=== PATIENT | male | born 1945 ===

== ENCOUNTER 2019-08-14 13:53 | Inpatient (IN) | payer MEDICARE, BC ==
[2019-08-14] MEDS ORDERED: CCU Electrolyte Replacement 1 EACH FS ONE (15:09)
[2019-08-14] MEDS ORDERED: Ventilator Sedation Protocol 1 EACH FS ONE (15:09)
[2019-08-14] MEDS ORDERED: Vecuronium 10 MG VIAL IVP PRN (15:10)
[2019-08-14] MEDS ORDERED: niCARdipine 40MG In NaCl 40 MG/200 ML BAG IVPB SCH (15:15)
[2019-08-14 15:36] LABS: Actual Bicarbonate (HCO3a) 21.3 mEq/L (22-28); Base Excess (BEa) -3.5 mEq/L (-2.0 to +3.0); CO2 Tension 38.2 mmHg (35.0-45.0); Calcium, Ionized 1.16 mmol/L (1.12-1.30); Carboxyhemoglobin (COHb) 0.6 gm% (0.0-3.0); Hemoglobin (Hb) 16.6 g/dL (14.0-18.0); Potassium - ABG Lab 5.14 mmol/L (3.70-5.30); pH, Arterial 7.37 (7.35-7.45)
[2019-08-14] MEDS ORDERED: Potassium Chloride 20 MEQ TAB PO PRN (16:21)
[2019-08-14] MEDS ORDERED: Propofol BOLUS 1,000 MG/100 ML VIAL IV PRN (16:21)
[2019-08-14] MEDS ORDERED: Potassium Phosphate 12 MMOL in Sodium Chloride 0.9% 250 ML 250 ML IV PRN (16:21)
[2019-08-14] MEDS ORDERED: CCU ELECTROLYTE REPLACEMENT PROTOCOL FS PRN (16:21)
[2019-08-14] MEDS ORDERED: fentaNYL Citrate/PF 2,000 MCG in Sodium Chloride 0.9% 60 ML IV SCH (16:21)
[2019-08-14] MEDS ORDERED: Morphine 2 MG/ML SYRINGE SLOW IVP PRN (16:21)
[2019-08-14] MEDS ORDERED: Magnesium Oxide 400 MG TAB PO PRN ×2 (16:21)
[2019-08-14] MEDS ORDERED: Potassium Chloride 40 MEQ in Sodium Chloride 0.9% 250 ML 250 ML IVPB PRN (16:21)
[2019-08-14] MEDS ORDERED: Magnesium 2 GM/50 ML 2 GM in Premix Bag 1 BAG IVPB PRN (16:21)
[2019-08-14] MEDS ORDERED: Fentanyl BOLUS 250 ML IVPB PRN (16:21)
[2019-08-14] MEDS ORDERED: Potassium Phosphate 15 MMOL in Sodium Chloride 0.9% 250 ML 250 ML IV PRN (16:21)
[2019-08-14] MEDS ORDERED: Potassium Phosphate 9 MMOL in Sodium Chloride 0.9% 100 ML IVPB PRN (16:21)
[2019-08-14] MEDS ORDERED: PHOS-NAK 1 PKT PACK PO PRN ×2 (16:21)
[2019-08-14] MEDS ORDERED: DISCONTINUE PREVIOUS NARCOTIC PAIN MEDICATIONS AND BENZODIAZEPINES FS SCH (16:21)
--- NOTE | 2019-08-14 16:31 | CON ---
DATE OF CONSULTATION: 08/14/2019 REASON FOR CONSULTATION: The patient is intubated. HISTORY OF PRESENT ILLNESS: This is a 74-year-old male, who presented to the [facility] at [place] yesterday with elevated blood pressure and difficulty speaking. He had a negative CT. He was found to have some narrowing of his right internal carotid artery, but no significant stenosis. He was started on a nicardipine drip secondary to hypertension. He was not considered a tPA candidate secondary to his elevated blood pressure. Today, he had altered mental status. It is presumed that he was having alcohol withdrawal. He became so combative that he had to be intubated. After intubation, a COVID-19 test was drawn because of the altered mental status, that was drawn over at [place] and will need to be followed up through that facility. PAST MEDICAL HISTORY: 1. Hypertension. 2. Hyperlipidemia. 3. Coronary artery disease, requiring 2 stents. 4. Gastroesophageal reflux. 5. Gout. 6. Mild COPD. PAST SURGICAL HISTORY: Coronary stent placement. FAMILY MEDICAL HISTORY: Unremarkable. SOCIAL HISTORY: Quit smoking in 2002. Drinks about half a bottle of wine every day. Does not use illicit drugs. ALLERGIES: OXYCODONE AND SULFA DRUGS. MEDICATIONS: Prior to admission; 1. Aspirin 81 mg daily. 2. Lipitor 40 mg nightly. 3. Candesartan 32 mg daily. 4. Isosorbide mononitrate 60 mg b.i.d. 5. Metoprolol 50 mg daily. REVIEW OF SYSTEMS: Cannot be obtained because the patient is currently intubated. PHYSICAL EXAMINATION: VITAL SIGNS: Heart rate 58, blood pressure 131/86, O2 saturation 96% on 40% oxygen, and respiratory rate 18. Last recorded temperature 98.0. GENERAL: He is a well-developed, well-nourished, elderly male. He was intubated and in no acute distress. HEENT: Pupils are 3 mm and reactive. Sclerae are anicteric. Oropharynx has endotracheal tube in place. NECK: No adenopathy or JVD. LUNGS: Clear without wheezing or rhonchi. CARDIOVASCULAR: Slightly bradycardic without audible murmur. NECK: He has an old tracheostomy scar noted. ABDOMEN: Soft and nontender. No hepatosplenomegaly. EXTREMITIES: No clubbing, cyanosis, or edema. LABORATORY DATA: His labs from here are pending. Last night, his sodium was 130, potassium 3.9, chloride 102, CO2 of 27, BUN 22, creatinine 1.7, and albumin 3.8. White blood cell count 11.3, hemoglobin 7.2, and platelet count 232. An ABG here is pending. I saw an x-ray from the [facility], which showed endotracheal tube is in good position. He had no acute mass, effusion, or infiltrate. ASSESSMENT: 1. Hypertension with emergency. 2. Possible alcohol withdrawal. 3. Acute respiratory failure, requiring mechanical ventilation. 4. Alcohol abuse. 5. History of coronary artery disease. 6. History of previous tracheostomy placement. 7. Transient ischemic attack at the time of admission. PLAN: The patient has been intubated. He will be kept on sedation. We will attempt not to lower his blood pressure too much. He can have nicardipine as needed. If his blood pressure remains elevated systolic greater than 170. We will await the results of the rule out COVID test. I do not see any need for extensive antibiotic coverage. Adjust ventilator if needed for ABG. Job ID: [id number]
[2019-08-14] MEDS ORDERED: Bisacodyl 10 MG SUPP PR PRN (17:01)
[2019-08-14] MEDS ORDERED: Acetaminophen 325 MG TAB PO PRN (17:01)
[2019-08-14] MEDS ORDERED: Ondansetron PF 4 MG/2 ML Vial IVP PRN (17:01)
[2019-08-14] MEDS ORDERED: Acetaminophen 650 MG Suppository PR PRN (17:01)
[2019-08-14 17:27] LABS: Puncture Site RRA
[2019-08-14] MEDS: Multivitamins, Adult 10 ML, Folic Acid 1 MG, Thiamine HCl 100 MG in Dextrose 5 %-0.45 %... IV SCH (17:42)
[2019-08-14] MEDS: Lorazepam 2 MG/ML VIAL SLOW IVP PRN ×2 (17:48→22:12)
--- NOTE | 2019-08-14 18:31 | HP ---
REASON FOR ADMISSION: Acute respiratory failure, alcohol abuse, delirium. HISTORY OF PRESENTING ILLNESS: Please note, majority of this history is obtained by [facility] and records from [facility]. The patient presented there yesterday for confusion and agitation. His initial blood pressures were elevated and the patient was placed on Cardene drip and admitted to ICU there. His initial blood pressures were 223/103. Stroke alert was also called in the ER, where a CT brain done showed no acute infarct. The patient subsequently underwent CT angio of the brain and neck, which showed 50% narrowing in the proximal right carotids. 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 The patient was given Ativan and later was started on Precedex drip, despite which he became very agitated and violent. He was subsequently intubated and transferred here for higher level of care. The patient apparently drinks half a bottle of wine every day. PAST MEDICAL AND SURGICAL HISTORY: Per prior records, the patient has history of hypertension, dyslipidemia, coronary artery disease with prior two stents. Last stent was in 2018. GERD. Gout. COPD. ALLERGIES: ALLERGIC TO OXYCODONE AND SULFA. PERSONAL HISTORY: Quit smoking in 2002. Drinks half a bottle of wine every day. Does not abuse drugs. FAMILY HISTORY: Cannot be obtained as the patient is on the ventilator and sedated. HOME MEDICATIONS: 1. Aspirin 81 mg daily. 2. Lipitor 40 mg p.o. at bedtime. 3. Candesartan 32 mg daily. 4. Imdur 60 mg twice daily. 5. Metoprolol succinate 50 mg daily. CODE STATUS: Presumed to be full, as the patient is currently not oriented as he is on the ventilator. REVIEW OF SYSTEMS: Cannot be obtained as the patient is intubated and sedated. PHYSICAL EXAMINATION: GENERAL: The patient is a 74-year-old male, who is currently on the ventilator and is not in any distress. VITAL SIGNS: Blood pressure 126/66, pulse is 56 per minute, respiratory rate 14 per minute, saturating 95% on 40% FiO2 on the ventilator. NECK: Supple. No elevated JVD. HEENT: Eyes; extraocular muscles intact. Pupils reacting to light. Oral cavity, mucous membranes are dry. No exudates or congestion. CARDIOVASCULAR: S1, S2 heard, regular rhythm. RESPIRATORY: Air entry 1+ bilateral. Scattered rhonchi plus no rales or wheezes. ABDOMEN: Soft. Bowel sounds heard. No tenderness, rigidity, or guarding. EXTREMITIES: No peripheral edema or calf tenderness. VASCULAR: Peripheral pulses 1+ bilateral. No ischemic ulcerations or gangrene. CENTRAL NERVOUS SYSTEM: No gross focal deficits noted. Further neurologic exam is limited as the patient is sedated and is on the ventilator. PSYCHIATRIC: Cannot be examined, as the patient is on the ventilator and sedated. LABORATORY DATA: Blood gas done here shows a pH of 7.37, pCO2 38, PO2 86, bicarb on the blood gas is 21. Electrolytes on the blood gas appear to be stable with sodium of 137, potassium 5.1, chloride 103. Further blood work done at [facility] shows albumin of 3.8. AST and ALT 20 and 37, alkaline phosphatase 86. White count of 11, H and H 17 and 49, platelet count 232, MCV is 88. BUN 22, creatinine 1.7, serum bicarb 27. Troponin x1 negative. CARDIOVASCULAR STUDIES: EKG showed normal sinus rhythm at 65 beats per minute. There is underlying chronic LBBB. QRS duration is 160 milliseconds, corrected QT 488 milliseconds. IMAGING STUDIES: CT brain done at [facility] shows no acute infarct or bleed. There are chronic left maxillary sinusitis changes with moderate cerebral atrophy. CT angio neck and brain done at [facility] yesterday showed 50% proximal right ICA stenosis. CLINICAL IMPRESSION AND PLAN: The patient will be admitted to ICU for acute respiratory failure secondary to alcohol abuse, delirium and severe agitation requiring multiple medications. He was evaluated by Dr. Duggan already here in the ICU. He will be on banana bag. Gentle hydration with normal saline. We will continue his DuoNeb, aspirin, Lipitor, and hold off on candesartan and indomethacin in view of acute kidney injury, which showed up on his labs yesterday. Based on changing vital signs, further antihypertensives will be added, if needed. We will continue to closely monitor him for further DTs and agitation in ICU. Job ID: [id number] [facility]
[2019-08-14] MEDS: Propofol 1,000 MG/100 ML VIAL IV PRN ×2 (18:36→21:31)
[2019-08-14] MEDS ORDERED: niCARdipine 25 MG in Sodium Chloride 0.9% 250 ML 240 ML IVPB SCH (18:45)
[2019-08-14] MEDS ORDERED: niCARdipine 50 MG in Sodium Chloride 0.9% 250 ML 230 ML IVPB SCH (18:45)
[2019-08-14] MEDS: Sodium Chloride 0.9% 1,000 ML IV SCH (19:54)
[2019-08-14] MEDS: Icosapent Ethyl 1 GM CAPSULE PO SCH (20:12)
[2019-08-14] MEDS: Aspirin 81 mg Enteric Coated Tablet PO SCH (20:12)
[2019-08-14] MEDS: Atorvastatin Calcium 40 MG TAB PO SCH (20:12)
[2019-08-14] MEDS: hydrALAZINE 20 MG/ML VIAL SLOW IVP PRN (21:32)
[2019-08-15] MEDS: Propofol 1,000 MG/100 ML VIAL IV PRN ×6 (00:09→19:57)
[2019-08-15 03:57] LABS: #Eosinphils 0.3 thou/uL (0.0-0.7); #Lymphocytes 2.2 thou/uL (1.20-3.40); #Monocytes 1.6 thou/uL (0.11-0.59); #Neutrophils 10.6 thou/uL (1.40-6.50); %Basophils 0.2 % (0.0-1.0); %Eosinophils 2.2 % (0.0-10.0); %Lymphocytes 14.8 % (21.0-51.0); %Monocytes 10.9 % (0.0-10.0); %Neutrophils 71.8 % (42.0-75.0); Hemoglobin 15.4 g/dL (14.0-18.0); Mean Corpuscular HGB CONC 33.5 g/dL (32.0-36.0); Mean Corpuscular Hemoglobin 31.6 pg (27.0-31.0); Mean Corpuscular Volume 94.3 fL (78.0-98.0); Mean Platelet Volume 8.5 fL (7.4-10.4); Platelet Count 195 thou/uL (130-400); RBC Distribution Width 12.6 % (11.5-14.5); Red Blood Cell (RBC) Count 4.88 mill/uL (4.70-6.10); White Blood Cell (WBC) Count 14.7 thou/uL (4.8-10.8)
[2019-08-15] MEDS: Sodium Chloride 0.9% 1,000 ML IV SCH ×3 (03:57→20:02)
[2019-08-15 04:20] LABS: ALT (SGPT) 18 U/L (8-55); AST (SGOT) 19 U/L (5-34); Albumin 3.5 g/dL (3.4-4.8); Alkaline Phosphatase 57 U/L (40-110); Anion Gap 14 mmol/L (10-20); BUN (Urea Nitrogen) 20 mg/dL (8.4-25.7); Calc. Creatinine Clearance 70 mL/min (70-130); Calcium 8.2 mg/dL (7.8-10.44); Carbon Dioxide 22 mmol/L (23-31); Chloride 103 mmol/L (98-107); Estimated GFR-MDRD 51; Globulin 2.8 g/dL (2.4-3.5); Glucose 168 mg/dL (83-110); Magnesium 1.8 mg/dL (1.6-2.6); Phosphorus 3.2 mg/dL (2.3-4.7); Potassium 3.6 mmol/L (3.5-5.1); Protein, Total 6.3 g/dL (5.8-8.1); Sodium 135 mmol/L (136-145)
[2019-08-15 06:55] LABS: Actual Bicarbonate (HCO3a) 22.9 mEq/L (22-28); Base Excess (BEa) -1.6 mEq/L (-2.0 to +3.0); CO2 Tension 38.6 mmHg (35.0-45.0); Calcium, Ionized 1.16 mmol/L (1.12-1.30); Carboxyhemoglobin (COHb) 1.2 gm% (0.0-3.0); Hemoglobin (Hb) 16.1 g/dL (14.0-18.0); O2 Tension (PaO2), arterial 73.4 mmHg (> 70.0); Potassium - ABG Lab 3.55 mmol/L (3.70-5.30); pH, Arterial 7.39 (7.35-7.45)
[2019-08-15 07:15] LABS: Puncture Site RRAD
[2019-08-15] MEDS: Pantoprazole 40 MG VIAL IVP SCH (07:26)
[2019-08-15] MEDS: Enoxaparin Sodium 40 MG/0.4 ML SYRINGE SC SCH (07:26)
[2019-08-15] MEDS: hydrALAZINE 20 MG/ML VIAL SLOW IVP PRN (07:27)
[2019-08-15] MEDS: Icosapent Ethyl 1 GM CAPSULE PO SCH ×2 (07:30→20:00)
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
--- NOTE | 2019-08-15 08:20 | RAD ---
CHEST 1 VIEW: HISTORY: Pneumonia. COMPARISON: None. FINDINGS: Endotracheal tube tip is below the clavicles. Enteric tube tip below the diaphragm out of field of v iew. Large left effusion. Trace right effusion. Also left basilar opacity. IMPRESSION: 1. Large left layering effusion. Underlying pneumonia or mass cannot be excluded. 2. Satisfactory location of the endotracheal and enteric tubes. POS: HOME
[2019-08-15] MEDS: Metoprolol Tartrate 50 MG TAB PER TUBE SCH ×2 (08:57→20:00)
[2019-08-15] MEDS: Lorazepam 2 MG/ML VIAL SLOW IVP PRN (08:57)
[2019-08-15] MEDS: Isosorbide Mononitrate 20 MG TAB PER TUBE SCH ×2 (08:58→20:00)
[2019-08-15] MEDS ORDERED: Isosorbide Mononitrate (ER) 30 MG TAB PO SCH (09:00)
[2019-08-15] MEDS: Multivitamins, Adult 10 ML, Folic Acid 1 MG, Thiamine HCl 100 MG in Dextrose 5 %-0.45 %... IV SCH (12:33)
--- NOTE | 2019-08-15 16:00 | PDOC.HOSPP ---
- Subjective Encounter Date: 08/15/19 Encounter Time: 09:00 Subjective: on vent, not in distress - Objective Vital Signs & Weight: Vital Signs (12 hours) Temp Pulse Resp BP Pulse Ox 08/15/19 14:26 57 L 08/15/19 14:00 19 08/15/19 12:00 14 08/15/19 11:00 98.6 F 08/15/19 10:32 56 L 08/15/19 10:00 15 08/15/19 08:00 21 H 100 08/15/19 07:27 56 L 183/72 H 08/15/19 07:16 56 L 08/15/19 07:00 97.2 F L 08/15/19 06:00 14 08/15/19 04:00 14 Weight Admit Weight 229 lb Weight 229 lb 4.492 oz Most Recent Monitor Data Heart Rate from ECG 58 NIBP 161/65 NIBP BP-Mean 97 Respiration from ECG 15 SpO2 100 I&O: 08/14/19 08/15/19 08/16/19 06:59 06:59 06:59 Intake Total 1553 120 Output Total 1313 810 Balance 240 -690 Result Diagrams: 08/15/19 03:23 08/15/19 03:23 Hospitalist ROS - Medication Medications: Active Medications Generic Name Dose Route Start Last Admin Trade Name Freq PRN Reason Stop Dose Admin Aspirin 81 mg 08/14/19 21:00 08/14/19 20:12 Ecotrin PO 81 mg HS CHEL Administration Atorvastatin Calcium 40 mg 08/14/19 21:00 08/14/19 20:12 Lipitor PO 40 mg HS CHEL Administration Enoxaparin Sodium 40 mg 08/15/19 09:00 08/15/19 07:26 Lovenox SC 40 mg 0900 CHEL Administration Hydralazine HCl 10 mg 08/14/19 21:23 08/15/19 07:27 Apresoline SLOW IVP 10 mg Q4H PRN Administration SBP > 180 or DBP > 105 Multivitamins 10 ml/ Folic 1,011.2 mls @ 100 mls/hr 08/14/19 16:30 08/15/19 12:33 Acid 1 mg/ Thiamine HCl 100 mg IV 1,011.2 mls / Dextrose/Sodium Chloride Q24HR CHEL Administration Sodium Chloride 1,000 mls @ 100 mls/hr 08/14/19 15:15 08/15/19 12:44 Normal Saline 0.9% IV Not Given .Q10H CHEL Isosorbide Mononitrate 30 mg 08/15/19 09:00 08/15/19 08:58 Ismo PER TUBE 30 mg BID CHEL Administration Lorazepam 2 mg 08/14/19 16:21 08/15/19 08:57 Ativan SLOW IVP 09/13/19 16:21 2 mg Q1H PRN Administration Breakthrough agitation Metoprolol Tartrate 50 mg 08/15/19 09:00 08/15/19 08:57 Lopressor PER TUBE 50 mg BID CHEL Administration Miscellaneous Medication 2 gm 08/14/19 21:00 08/15/19 07:30 Vascepa PO 2 gm BID CHEL Administration Pantoprazole Sodium 40 mg 08/15/19 09:00 08/15/19 07:26 Protonix IVP 40 mg DAILY CHEL Administration Propofol 1,000 mg 08/14/19 16:21 08/15/19 15:02 Diprivan IV 09/13/19 16:21 1,000 mg INF PRN Administration TO ACHIEVE GOAL RASS Protocol - Exam Eye: PERRL, anicteric sclera ENT: no oropharyngeal lesions, moist mucosa Neck: supple, no JVD Heart: RRR, no murmur Respiratory: no wheezes, normal chest expansion Gastrointestinal: soft, non-distended, normal bowel sounds Extremities: no cyanosis, no edema Neurological: cranial nerve grossly intact, no focal deficits Hosp A/P (1) Acute respiratory failure with hypoxia Code(s): J96.01 - ACUTE RESPIRATORY FAILURE WITH HYPOXIA Status: Acute (2) Acute metabolic encephalopathy Code(s): G93.41 - METABOLIC ENCEPHALOPATHY Status: Acute (3) Hypertension, uncontrolled Code(s): I10 - ESSENTIAL (PRIMARY) HYPERTENSION Status: Acute (4) Alcohol use Code(s): Z72.89 - OTHER PROBLEMS RELATED TO LIFESTYLE Status: Suspected (5) CAD (coronary artery disease) Code(s): I25.10 - ATHSCL HEART DISEASE OF [place] CORONARY ARTERY W/O ANG PCTRS Status: Chronic (6) Dyslipidemia Code(s): E78.5 - HYPERLIPIDEMIA, UNSPECIFIED Status: Chronic - Plan hemostable weaning per pulm advice continue asp, lipitor, imdur, lopressor echo shows normal ef MRI brain after extubation cultures are -ve, covid is pending
[2019-08-15] MEDS: Aspirin 81 mg Enteric Coated Tablet PO SCH (20:00)
[2019-08-15] MEDS: Atorvastatin Calcium 40 MG TAB PO SCH (20:00)
[2019-08-16] MEDS: Propofol 1,000 MG/100 ML VIAL IV PRN ×3 (01:43→20:51)
[2019-08-16 03:59] LABS: #Basophils 0.1 thou/uL (0.0-0.2); #Eosinphils 0.5 thou/uL (0.0-0.7); #Lymphocytes 1.9 thou/uL (1.20-3.40); #Monocytes 1.9 thou/uL (0.11-0.59); #Neutrophils 12.1 thou/uL (1.40-6.50); %Basophils 0.3 % (0.0-1.0); %Eosinophils 2.8 % (0.0-10.0); %Lymphocytes 11.3 % (21.0-51.0); %Monocytes 11.8 % (0.0-10.0); %Neutrophils 73.9 % (42.0-75.0); Hemoglobin 15.7 g/dL (14.0-18.0); Mean Corpuscular HGB CONC 34.6 g/dL (32.0-36.0); Mean Corpuscular Hemoglobin 32.3 pg (27.0-31.0); Mean Corpuscular Volume 93.3 fL (78.0-98.0); Mean Platelet Volume 9.6 fL (7.4-10.4); Platelet Count 127 thou/uL (130-400); RBC Distribution Width 12.6 % (11.5-14.5); Red Blood Cell (RBC) Count 4.85 mill/uL (4.70-6.10); White Blood Cell (WBC) Count 16.4 thou/uL (4.8-10.8)
[2019-08-16 04:14] LABS: Phosphorus 3.1 mg/dL (2.3-4.7)
[2019-08-16 04:18] LABS: ALT (SGPT) 13 U/L (8-55); AST (SGOT) 18 U/L (5-34); Albumin 3.3 g/dL (3.4-4.8); Alkaline Phosphatase 67 U/L (40-110); Anion Gap 14 mmol/L (10-20); BUN (Urea Nitrogen) 18 mg/dL (8.4-25.7); Bilirubin, Total 2.8 mg/dL (0.2-1.2); Calc. Creatinine Clearance 79 mL/min (70-130); Carbon Dioxide 18 mmol/L (23-31); Chloride 108 mmol/L (98-107); Estimated GFR-MDRD 59; Glucose 133 mg/dL (83-110); Potassium 3.8 mmol/L (3.5-5.1); Protein, Total 6.3 g/dL (5.8-8.1); Sodium 136 mmol/L (136-145)
[2019-08-16 04:21] LABS: Magnesium 1.8 mg/dL (1.6-2.6)
[2019-08-16 07:03] LABS: Actual Bicarbonate (HCO3a) 21.1 mEq/L (22-28); CO2 Tension 35.3 mmHg (35.0-45.0); Calcium, Ionized 1.14 mmol/L (1.12-1.30); Carboxyhemoglobin (COHb) 1.6 gm% (0.0-3.0); Hemoglobin (Hb) 15.4 g/dL (14.0-18.0); O2 Tension (PaO2), arterial 90.3 mmHg (> 70.0); Potassium - ABG Lab 3.52 mmol/L (3.70-5.30)
[2019-08-16 07:21] LABS: Puncture Site RRAD
[2019-08-16 07:22] LABS: ALV-art Gradient 150.775 (0-20)
[2019-08-16] MEDS: Metoprolol Tartrate 50 MG TAB PER TUBE SCH ×2 (08:18→20:24)
[2019-08-16] MEDS: Isosorbide Mononitrate 20 MG TAB PER TUBE SCH ×2 (08:18→20:23)
[2019-08-16] MEDS: Pantoprazole 40 MG VIAL IVP SCH (08:18)
[2019-08-16] MEDS: Enoxaparin Sodium 40 MG/0.4 ML SYRINGE SC SCH (08:18)
[2019-08-16] MEDS: Icosapent Ethyl 1 GM CAPSULE PO SCH ×2 (08:18→20:23)
--- NOTE | 2019-08-16 08:24 | RAD ---
EXAM: CHEST ONE VIEW HISTORY: Pneumonia COMPARISON: 08/15/2019 FINDINGS: Endotracheal tube and nasogastric tubes remain in place. Cardiac silhouette is magnified by projectio n but stable in size. Left pleural effusion is again seen. Patchy parenchymal airspace densities are seen at the right lung base. No other interval change. IMPRESSION: 1. Small to moderate size left pleural effusion and associated atelectasis. Superimposed pneumonia le ft lung base could not be excluded. 2. Slight interval increase in linear and patchy parenchymal densities right lung base which may rela vidhi to worsening atelectasis or pneumonitis. 3. Continued follow-up to resolution is recommended.
[2019-08-16] MEDS: Sodium Chloride 0.9% 1,000 ML IV SCH ×2 (08:35→18:23)
--- NOTE | 2019-08-16 08:45 | PRG ---
DATE OF SERVICE: 08/16/2019 SUBJECTIVE: Mr. Worthington is a 74-year-old gentleman, who developed worsening shortness of breath and presented to [facility] on the day of admission. He was having oriented and appropriate at the time or ER assessment and was doing well the following morning when his spoke to hime. Shortly thereafter she was called to say that he had developed sudden significant respiratory distress and was electivelyintubated with presumptive initial diagnosis of COVID. Subsequent COVID test has come back negative. He had a lot of agitation and restlessness requiring sedation and was ultimately transferred to [facility]. Since that time, he has remained on ventilatory support. He is thought to possibly had a TIA at the time of admission. He has not had further imaging. He had an echocardiogram prior to transfer, which demonstrated mild diastolic dysfunction, preserved ejection fraction, mild to moderate mitral regurgitation. Home activity levels are low since admission for cardiac complications in January 2019. Over the night, the patient has been hemodynamically stable on low-dose sedation. He does not respond very well to stimuli, although has not had sedation break this morning. PHYSICAL EXAMINATION: VITAL SIGNS: Blood pressure is 160/63, heart rate 58, saturation 96%. GENERAL: He is orally intubated. He appears to be approximately stated age. I did not elicit response to verbal stimuli and only minimal response to pain. HEENT: His pupils are reactive and anicteric. NECK: Short and there is no obvious JVD. LUNGS: Bronchial breath sounds without wheezing or rales. He does assess the ventilator and spontaneous rate is about 5 to 7 breaths above the set rate. HEART: Regular rate and rhythm. I do not hear a significant murmur. ABDOMEN: Soft, obese. There is no guarding. EXTREMITIES: No cyanosis, clubbing, or edema. LABORATORY: White count 16,400, hemoglobin 15.7, hematocrit 45.3, platelet count of 127,000. Blood gas includes pH 7.4, CO2 of 35, PO2 of 90, bicarbonate 21. This was obtained with rate of 12, FiO2 of 40%, tidal volume 500. Electrolytes today include sodium 136, potassium 3.5, chloride 105, bicarbonate is 18, creatinine 1.2. Liver tests are normal. He is on a banana bag given his past history of moderate alcohol consumption. Chest x-ray is reviewed by me. Endotracheal tube is in good position. NG tube appears to progress into the stomach, although the tip is not seen. Heart size is normal. Aorta is moderately tortuous. Nonspecific streaky changes seen in the bases. There is no obvious effusion. The lateral left costophrenic angle is not well seen. IMPRESSION: Respiratory distress with subsequent respiratory failure necessitating intubation of ventilatory support. The patient has a very remote smoking history, although that does not appear to be the predominant cause today. He is not on home oxygen and ABGs do not reflect significant chronic hypercapnia. He was hypertensive at initial ER presentation and there was thought that he might have had a TIA or underlying neurologic event. Certainly, his current degree of altered mentation might support that and further evaluation either with repeat CT scan or MRI is recommended. History of alcohol use, moderate. There is no evidence of DTs. PLAN: We will continue current supportive therapies. I have reduced his FiO2 to 0.35 and reduced his ventilator rate to 8. Hopefully, we can begin some reduction in sedation and reassess his neurologic status. I think, he is going to need either a repeat CT head or MRI, other measures continue. I have spent critical care 25 minutes in direct patient care. Job ID: [id number] MTDD
--- NOTE | 2019-08-16 09:22 | CT ---
CT HEAD WITHOUT IV CONTRAST COMPARISON: 08/13/2019 HISTORY: Altered mental status TECHNIQUE: Axial CT imaging at 5 mm intervals from vertex through skull base without contrast FINDINGS: Mild cerebral volume loss is again seen. There is no evidence of an acute infarction, hemorrhage, mas s effect, or midline shift. The ventricular system is normal in size, shape, and position. Again noted is prominent mucosal thickening left maxillary antrum. Wall thickening is present involvi ng the left maxillary antrum suggesting a component of chronic sinusitis. Few small mastoid effusions are seen on the right. Left mastoid air cells are clear. Osseous structures appear intact. IMPRESSION: 1. No acute intracranial abnormality demonstrated. 2. Mild cerebral volume loss. 3. Sinus disease. 4. Small right mastoid effusions.
[2019-08-16] MEDS: Lorazepam 2 MG/ML VIAL SLOW IVP PRN (09:37)
--- NOTE | 2019-08-16 12:20 | PDOC.HOSPP ---
- Subjective Encounter Date: 08/16/19 Encounter Time: 10:50 Subjective: On vent, sedated at bedside - Objective Vital Signs & Weight: Vital Signs (12 hours) Temp Pulse Resp Pulse Ox 08/16/19 10:50 54 L 08/16/19 10:00 14 08/16/19 08:00 98.8 F 14 97 08/16/19 07:22 75 08/16/19 06:00 14 08/16/19 04:00 98.9 F 14 08/16/19 02:15 65 08/16/19 02:00 13 Weight Admit Weight 229 lb Weight 227 lb 8.273 oz Most Recent Monitor Data Heart Rate from ECG 54 NIBP 149/62 NIBP BP-Mean 91 Respiration from ECG 15 SpO2 100 I&O: 08/15/19 08/16/19 08/17/19 06:59 06:59 06:59 Intake Total 1553 3257 50 Output Total 1313 1886 347 Balance 240 1371 -297 Result Diagrams: 08/16/19 03:27 08/16/19 03:27 Hospitalist ROS - Medication Medications: Active Medications Generic Name Dose Route Start Last Admin Trade Name Freq PRN Reason Stop Dose Admin Aspirin 81 mg 08/14/19 21:00 08/15/19 20:00 Ecotrin PO 81 mg HS CHEL Administration Atorvastatin Calcium 40 mg 08/14/19 21:00 08/15/19 20:00 Lipitor PO 40 mg HS CHEL Administration Enoxaparin Sodium 40 mg 08/15/19 09:00 08/16/19 08:18 Lovenox SC 40 mg 0900 CHEL Administration Hydralazine HCl 10 mg 08/14/19 21:23 08/15/19 07:27 Apresoline SLOW IVP 10 mg Q4H PRN Administration SBP > 180 or DBP > 105 Multivitamins 10 ml/ Folic 1,011.2 mls @ 100 mls/hr 08/14/19 16:30 08/15/19 12:33 Acid 1 mg/ Thiamine HCl 100 mg IV 1,011.2 mls / Dextrose/Sodium Chloride Q24HR CHEL Administration Sodium Chloride 1,000 mls @ 100 mls/hr 08/14/19 15:15 08/16/19 08:35 Normal Saline 0.9% IV 1,000 mls .Q10H CHEL Administration Isosorbide Mononitrate 30 mg 08/15/19 09:00 08/16/19 08:18 Ismo PER TUBE 30 mg BID CHEL Administration Lorazepam 2 mg 08/14/19 16:21 08/16/19 09:37 Ativan SLOW IVP 09/13/19 16:21 2 mg Q1H PRN Administration Breakthrough agitation Metoprolol Tartrate 50 mg 08/15/19 09:00 08/16/19 08:18 Lopressor PER TUBE 50 mg BID CHEL Administration Miscellaneous Medication 2 gm 08/14/19 21:00 08/16/19 08:18 Vascepa PO 2 gm BID CHEL Administration Morphine Sulfate 2 mg 08/14/19 16:21 08/15/19 19:59 Morphine SLOW IVP 09/13/19 16:21 2 mg Q1H PRN Administration BREAKTHROUGH PAIN/Agitation Pantoprazole Sodium 40 mg 08/15/19 09:00 08/16/19 08:18 Protonix IVP 40 mg DAILY CHEL Administration Propofol 1,000 mg 08/14/19 16:21 08/16/19 01:43 Diprivan IV 09/13/19 16:21 1,000 mg INF PRN Administration TO ACHIEVE GOAL RASS Protocol - Exam Eye: PERRL, anicteric sclera ENT: no oropharyngeal lesions, dry oral mucosa Neck: supple, no JVD Heart: RRR, no murmur Respiratory: no wheezes, no rales Gastrointestinal: soft, non-tender, non-distended, normal bowel sounds Extremities: no cyanosis, no edema Neurological: cranial nerve grossly intact, no focal deficits Hosp A/P (1) Acute respiratory failure with hypoxia Code(s): J96.01 - ACUTE RESPIRATORY FAILURE WITH HYPOXIA Status: Acute (2) Acute metabolic encephalopathy Code(s): G93.41 - METABOLIC ENCEPHALOPATHY Status: Acute (3) Hypertension, uncontrolled Code(s): I10 - ESSENTIAL (PRIMARY) HYPERTENSION Status: Resolved (4) Alcohol use Code(s): Z72.89 - OTHER PROBLEMS RELATED TO LIFESTYLE Status: Suspected (5) CAD (coronary artery disease) Code(s): I25.10 - ATHSCL HEART DISEASE OF [place] CORONARY ARTERY W/O ANG PCTRS Status: Chronic (6) Dyslipidemia Code(s): E78.5 - HYPERLIPIDEMIA, UNSPECIFIED Status: Chronic - Plan hemostable weaning per pulm advice continue asp, lipitor, imdur, lopressor echo shows normal ef MRI brain after extubation cultures are -ve, covid is -ve repeat CT brain today shows no ac changes or bleed unclear etiology for encephalopathy, likely htn emergency?
[2019-08-16] MEDS: Multivitamins, Adult 10 ML, Folic Acid 1 MG, Thiamine HCl 100 MG in Dextrose 5 %-0.45 %... IV SCH (16:33)
[2019-08-16] MEDS: Aspirin 81 mg Enteric Coated Tablet PO SCH (20:24)
[2019-08-16] MEDS: Atorvastatin Calcium 40 MG TAB PO SCH (20:24)
[2019-08-17] MEDS: Propofol 1,000 MG/100 ML VIAL IV PRN ×2 (01:59→05:26)
[2019-08-17] MEDS: Sodium Chloride 0.9% 1,000 ML IV SCH ×2 (04:05→14:27)
[2019-08-17 04:08] LABS: #Eosinphils 0.4 thou/uL (0.0-0.7); #Lymphocytes 1.9 thou/uL (1.20-3.40); #Monocytes 1.5 thou/uL (0.11-0.59); #Neutrophils 10.1 thou/uL (1.40-6.50); %Basophils 0.3 % (0.0-1.0); %Eosinophils 2.9 % (0.0-10.0); %Lymphocytes 13.9 % (21.0-51.0); %Monocytes 10.4 % (0.0-10.0); %Neutrophils 72.4 % (42.0-75.0); Mean Corpuscular HGB CONC 34.1 g/dL (32.0-36.0); Mean Corpuscular Volume 93.8 fL (78.0-98.0); Mean Platelet Volume 10.8 fL (7.4-10.4); Platelet Count 99 thou/uL (130-400); RBC Distribution Width 12.4 % (11.5-14.5); Red Blood Cell (RBC) Count 5.02 mill/uL (4.70-6.10); White Blood Cell (WBC) Count 13.9 thou/uL (4.8-10.8)
[2019-08-17 04:21] LABS: ALT (SGPT) Less than 7 U/L (8-55); AST (SGOT) 13 U/L (5-34); Albumin 3.2 g/dL (3.4-4.8); Alkaline Phosphatase 37 U/L (40-110); Anion Gap 15 mmol/L (10-20); BUN (Urea Nitrogen) 18 mg/dL (8.4-25.7); Calc. Creatinine Clearance 81 mL/min (70-130); Calcium 8.2 mg/dL (7.8-10.44); Carbon Dioxide 18 mmol/L (23-31); Chloride 109 mmol/L (98-107); Estimated GFR-MDRD 61; Globulin 2.9 g/dL (2.4-3.5); Glucose 137 mg/dL (83-110); Phosphorus 2.9 mg/dL (2.3-4.7); Potassium 3.6 mmol/L (3.5-5.1); Protein, Total 6.1 g/dL (5.8-8.1); Sodium 138 mmol/L (136-145)
[2019-08-17 07:08] LABS: Actual Bicarbonate (HCO3a) 21.2 mEq/L (22-28); Base Excess (BEa) -2.9 mEq/L (-2.0 to +3.0); CO2 Tension 35.2 mmHg (35.0-45.0); Calcium, Ionized 1.15 mmol/L (1.12-1.30); Carboxyhemoglobin (COHb) 1.1 gm% (0.0-3.0); Hemoglobin (Hb) 15.5 g/dL (14.0-18.0); O2 Tension (PaO2), arterial 61.4 mmHg (> 70.0)
[2019-08-17 07:32] LABS: Puncture Site RRAD
--- NOTE | 2019-08-17 08:49 | RAD ---
EXAM: CHEST ONE VIEW HISTORY: Pneumonia COMPARISON: 08/16/2019 FINDINGS: Endotracheal tube and nasogastric tube in place and unchanged in position. Pulmonary vasculature is w ithin normal limits. Pleural and parenchymal changes left lung base are again seen which may represent left pleural effusion and atelectasis. However associated pneumonia at the left lung base c annot be excluded. Patchy parenchymal airspace opacities are again seen at the right lung base with linear parenchymal densities in the left perihilar location. There is been no significant interval ch jordy from prior exam. IMPRESSION: 1. Small to moderate size left pleural effusion and associated volume loss. Superimposed pneumonia le ft lung base again cannot be entirely excluded. 2. Linear and patchy parenchymal airspace densities right lung base which again may related to atelec tasis versus pneumonia. 3. Interstitial densities left midlung zone.
--- NOTE | 2019-08-17 08:51 | PRG ---
DATE OF SERVICE: 08/17/2019 SUBJECTIVE: Mr. Worthington has not shown a significant change overnight. 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 He has not had any seizure activity. He has some restlessness and agitation when the ventilator rate is reduced, but otherwise no pathologic responses. He is not awake enough to follow commands. PHYSICAL EXAMINATION: VITAL SIGNS: Blood pressure is 140/48, heart rate is 57, oxygen saturation 98%. He remains on the ventilator with a rate of 8. He is mildly sedated. HEENT: Pupils are reactive. NECK: He has no JVD. He has no carotid bruits. LUNGS: He has rhonchi on the right and some decreased breath sounds on the left. HEART: Regular rate and rhythm without murmur. ABDOMEN: Soft, obese without organomegaly. There is no guarding or rebound. EXTREMITIES: No edema. NEUROLOGIC: Mildly sedated, but does not respond to verbal stimuli. LABORATORY DATA: CT is as described above. Chest x-ray shows minimal interstitial prominence and atelectasis. White count is 13,900, hemoglobin is 16. Blood gas this morning include pH 7.4, pCO2 of 35, pO2 of 61, bicarbonate 21, this is obtained on a ventilator with a rate of 8, tidal volume 500, FiO2 of 35%. Electrolytes include sodium 138, potassium 3.6, chloride 109, CO2 is 18. IMPRESSION: Altered mentation. The patient had been doing relatively well preceding the event. He had a mild headache and then was hypertensive. He was ultimately brought to [facility]. An initial evaluation was negative. The following morning, he had communicated with his and then shortly thereafter had acute deterioration of mentation and was intubated. Evaluation to date has not shown an obvious explanation. PLAN: We will obtain Neurology consultation. The patient probably is going to need an MRI. I have begun further weaning of his ventilator and hopefully can get him down to spontaneous right today. We will try to reduce his sedation and get a better assessment of his underlying neuro status. Neurology consultation is requested. Critical care time today, 22 minutes. Job ID: [id number]
[2019-08-17] MEDS: Pantoprazole 40 MG VIAL IVP SCH (08:55)
[2019-08-17] MEDS: Enoxaparin Sodium 40 MG/0.4 ML SYRINGE SC SCH (08:55)
[2019-08-17] MEDS: Metoprolol Tartrate 50 MG TAB PER TUBE SCH ×2 (08:55→21:51)
[2019-08-17] MEDS: Isosorbide Mononitrate 20 MG TAB PER TUBE SCH ×2 (08:56→21:36)
[2019-08-17] MEDS: Icosapent Ethyl 1 GM CAPSULE PO SCH ×2 (08:57→21:36)
[2019-08-17] MEDS ORDERED: Lorazepam 2 MG/ML VIAL SLOW IVP PRN ×2 (12:42→12:59)
--- NOTE | 2019-08-17 13:02 | PDOC.HOSPP ---
- Subjective Encounter Date: 08/17/19 Subjective: The patient has been extubated. He is confused and agitated. His stated that he drinks half a bottle of wine every night. - Objective Vital Signs & Weight: Vital Signs (12 hours) Temp Pulse Resp Pulse Ox 08/17/19 10:38 78 08/17/19 10:00 22 H 08/17/19 08:00 98.6 F 98 08/17/19 07:32 54 L 08/17/19 06:00 16 08/17/19 04:00 98.7 F 16 08/17/19 02:00 16 Weight Admit Weight 229 lb Weight 229 lb 11.547 oz Most Recent Monitor Data Heart Rate from ECG 73 NIBP 174/64 NIBP BP-Mean 100 Respiration from ECG 26 SpO2 96 I&O: 08/16/19 08/17/19 08/18/19 06:59 06:59 06:59 Intake Total 3257 3280 454 Output Total 1886 1762 1060 Balance 1371 1518 -606 Result Diagrams: 08/17/19 03:12 08/17/19 03:12 Hospitalist ROS - Medication Medications: Active Medications Generic Name Dose Route Start Last Admin Trade Name Freq PRN Reason Stop Dose Admin Aspirin 81 mg 08/14/19 21:00 08/16/19 20:24 Ecotrin PO 81 mg HS CHEL Administration Atorvastatin Calcium 40 mg 08/14/19 21:00 08/16/19 20:24 Lipitor PO 40 mg HS CHEL Administration Enoxaparin Sodium 40 mg 08/15/19 09:00 08/17/19 08:55 Lovenox SC 40 mg 0900 CHEL Administration Hydralazine HCl 10 mg 08/14/19 21:23 08/15/19 07:27 Apresoline SLOW IVP 10 mg Q4H PRN Administration SBP > 180 or DBP > 105 Multivitamins 10 ml/ Folic 1,011.2 mls @ 100 mls/hr 08/14/19 16:30 08/16/19 16:33 Acid 1 mg/ Thiamine HCl 100 mg IV 1,011.2 mls / Dextrose/Sodium Chloride Q24HR CHEL Administration Sodium Chloride 1,000 mls @ 100 mls/hr 08/14/19 15:15 08/17/19 04:05 Normal Saline 0.9% IV 1,000 mls .Q10H CHEL Administration Magnesium Sulfate 2 gm/ Device 50 mls @ 50 mls/hr 08/14/19 16:21 08/17/19 04: 29 IVPB 50 mls ASDIR PRN Administration MAGNESIUM < 1.4 Isosorbide Mononitrate 30 mg 08/15/19 09:00 08/17/19 08:56 Ismo PER TUBE 30 mg BID CHEL Administration Metoprolol Tartrate 50 mg 08/15/19 09:00 08/17/19 08:55 Lopressor PER TUBE 50 mg BID CHEL Administration Miscellaneous Medication 2 gm 08/14/19 21:00 08/17/19 08:57 Vascepa PO 2 gm BID CHEL Administration Pantoprazole Sodium 40 mg 08/15/19 09:00 08/17/19 08:55 Protonix IVP 40 mg DAILY CHEL Administration - Exam ENT: normocephalic atraumatic Neck: supple Heart: RRR Respiratory: normal chest expansion, no tachypnea Neurological: cranial nerve grossly intact Hosp A/P (1) Acute metabolic encephalopathy Code(s): G93.41 - METABOLIC ENCEPHALOPATHY Status: Acute (2) Alcohol withdrawal Code(s): F10.239 - ALCOHOL DEPENDENCE WITH WITHDRAWAL, UNSPECIFIED Status: Acute (3) Aspiration pneumonia Code(s): J69.0 - PNEUMONITIS DUE TO INHALATION OF FOOD AND VOMIT Status: Acute (4) Acute respiratory failure with hypoxia Code(s): J96.01 - ACUTE RESPIRATORY FAILURE WITH HYPOXIA Status: Acute (5) CAD (coronary artery disease) Code(s): I25.10 - ATHSCL HEART DISEASE OF [place] CORONARY ARTERY W/O ANG PCTRS Status: Chronic (6) Dyslipidemia Code(s): E78.5 - HYPERLIPIDEMIA, UNSPECIFIED Status: Chronic (7) Hypertension, uncontrolled Code(s): I10 - ESSENTIAL (PRIMARY) HYPERTENSION Status: Resolved - Plan Confusion and agitation is present. The patient with history of daily alcohol use. Withdrawal is likely. Initiate Ativan 2 mg every 2 hours as needed for CIWA score greater than 8. MRI of the brain is scheduled for today. Chest x-ray revealed left lower lobe basal infiltrates with effusion. Leukocytosis is elevated. Initiate Unasyn for possible aspiration pneumonia. The patient was extubated successfully. Continue supplemental oxygen as needed. His blood pressure has been uncontrolled this morning. We will await his response to alcohol withdrawal management.
[2019-08-17] MEDS: Ampicillin/Sulbactam 1.5 GM in Sodium Chloride 0.9% 100 ML IVPB SCH ×2 (14:27→21:37)
[2019-08-17] MEDS: Multivitamins, Adult 10 ML, Folic Acid 1 MG, Thiamine HCl 100 MG in Dextrose 5 %-0.45 %... IV SCH (16:12)
[2019-08-17] MEDS ORDERED: Propofol 1,000 MG/100 ML VIAL IV ONE (17:32)
[2019-08-17 18:51] LABS: Actual Bicarbonate (HCO3a) 23.4 mEq/L (22-28); Base Excess (BEa) -1.7 mEq/L (-2.0 to +3.0); CO2 Tension 41.1 mmHg (35.0-45.0); Calcium, Ionized 1.13 mmol/L (1.12-1.30); Hemoglobin (Hb) 14.9 g/dL (14.0-18.0); Potassium - ABG Lab 3.68 mmol/L (3.70-5.30); pH, Arterial 7.37 (7.35-7.45)
[2019-08-17 19:01] LABS: ALV-art Gradient 164.825 (0-20); Puncture Site LRA
--- NOTE | 2019-08-17 19:27 | RAD ---
CHEST ONE VIEW: History: Intubated, follow up evaluation. Comparison: 08-17-2019 at 0408 hours. FINDINGS: Endotracheal tube remains in place and unchanged in position. Nasogastric tube is not seen. Cardiac p acing devices overlie the left lung base which limits evaluation. There are pleural and parenchymal c hanges left lung base which may represent left pleural effusion atelectasis. Superimposed infiltrate is a possibility. There is increased bilateral interstitial and alveolar opacities, mainly seen in a perihilar location which may represent pulmonary edema or infectious process. IMPRESSION: 1. Bilateral interstitial and alveolar opacities predominately in the perihilar distribution. Finding s may be related to infectious process versus pulmonary edema. 2. Suboptimal evaluation left lung base. There is suggestion of pleural and parenchymal densities at the left lung base which may represent left pleural effusion and atelectasis. Superimposed infiltrate is a possibility. 3. Interval removal of nasogastric tube with endotracheal tube remaining in place. POS: Neeta
--- NOTE | 2019-08-17 21:15 | CON ---
DATE OF CONSULTATION: 08/17/2019 CONSULTING PHYSICIAN: Hospitalist Service. IMPRESSION: Encephalopathy with recent presentation of acute hypoxic respiratory failure in combination with altered AA gradient, progressive thrombocytopenia, and elevated bilirubin suggesting an underlying toxic and metabolic process. PLAN: 1. MRI of the brain. 2. Ammonia level, cortisol, repeat COVID screen. HISTORY OF PRESENT ILLNESS: Mr. Worthington is a 74-year-old gentleman with a known history of COPD and daily alcohol use. He developed progressive shortness of breath and was seen in the emergency room. He had some upper respiratory symptoms including sinus drainage and congestion prior to his admission. He clinically deteriorated and was subsequently intubated. He was extubated today. His chest x-rays have shown some bilateral infiltrates as well as a pulmonary effusion. His lab studies have shown some persistent acidosis that appears to be compensated based on his blood gas analysis. His AA gradient has been elevated since admission. His bilirubin has been a bit elevated at 2.0 since admission as well with relatively low liver enzymes otherwise. He had COVID screen on admission, which was negative. His blood cultures have returned negative as well. He was receiving different sedations during his intubation, and despite discontinuing this, has remained confused and agitated. He cannot sit still in bed and had to be restrained. He has been afebrile. PAST MEDICAL HISTORY: As listed above. ALLERGIES: SULFA AND CODEINE. SOCIAL HISTORY: Positive for tobacco and alcohol. FAMILY HISTORY: Not obtainable. REVIEW OF SYSTEMS: Ten systems review of systems cannot be obtained due to his mental state. PHYSICAL EXAMINATION: GENERAL: He is a well-nourished elderly man, lying crossways in the bed. VITAL SIGNS: Pulse 85 in a sinus rhythm, saturations 92% on 4 L of oxygen, and respirations 28. HEENT: Unremarkable. NECK: Supple. EXTREMITIES: No cyanosis. NEUROLOGIC: He is able to answer questions to some degree. He is clearly disoriented to circumstances. He is moving around at all restlessly and seems to have equal strength. No unusual movements were seen suggesting any type of tremors or myoclonus. Gait was not testable. Sensation is grossly intact. IMAGING STUDIES: CT scan of the brain just showed some age-related changes. SUMMARY: Elderly gentleman, who presented with respiratory distress and has an abnormal chest x-ray as well as lab abnormalities as noted above, suspicious that his COVID test may have been a false negative. I have suggested repeating this and rule out hyperammonemia given his alcohol history. Cortisol level will be done for completeness as well. MRI is pending, although the exam is otherwise nonfocal and I do not suspect that we will find much. Job ID: [id number]
[2019-08-17] MEDS: Atorvastatin Calcium 40 MG TAB PO SCH (21:37)
[2019-08-17] MEDS: Aspirin 81 mg Enteric Coated Tablet PO SCH (21:37)
[2019-08-18] MEDS ORDERED: fentaNYL Citrate/PF 2,000 MCG in Sodium Chloride 0.9% 60 ML IV SCH (00:04)
[2019-08-18] MEDS ORDERED: DISCONTINUE PREVIOUS NARCOTIC PAIN MEDICATIONS AND BENZODIAZEPINES FS SCH (00:04)
[2019-08-18] MEDS ORDERED: Propofol BOLUS 1,000 MG/100 ML VIAL IV PRN (00:04)
[2019-08-18] MEDS ORDERED: Fentanyl BOLUS 250 ML IVPB PRN (00:04)
[2019-08-18] MEDS: Sodium Chloride 0.9% 1,000 ML IV SCH ×2 (01:08→09:20)
[2019-08-18] MEDS: Propofol 1,000 MG/100 ML VIAL IV PRN ×5 (01:08→23:38)
[2019-08-18] MEDS: Ampicillin/Sulbactam 1.5 GM in Sodium Chloride 0.9% 100 ML IVPB SCH ×4 (02:13→20:11)
[2019-08-18 05:18] LABS: #Eosinphils 0.3 thou/uL (0.0-0.7); #Lymphocytes 1.7 thou/uL (1.20-3.40); #Monocytes 1.2 thou/uL (0.11-0.59); #Neutrophils 8.2 thou/uL (1.40-6.50); %Basophils 0.4 % (0.0-1.0); %Eosinophils 2.6 % (0.0-10.0); %Lymphocytes 14.7 % (21.0-51.0); %Monocytes 10.3 % (0.0-10.0); %Neutrophils 72.1 % (42.0-75.0); Hemoglobin 13.1 g/dL (14.0-18.0); Mean Corpuscular HGB CONC 33.5 g/dL (32.0-36.0); Mean Corpuscular Hemoglobin 31.4 pg (27.0-31.0); Mean Corpuscular Volume 93.7 fL (78.0-98.0); Mean Platelet Volume 9.3 fL (7.4-10.4); Platelet Count 211 thou/uL (130-400); RBC Distribution Width 12.3 % (11.5-14.5); Red Blood Cell (RBC) Count 4.17 mill/uL (4.70-6.10); White Blood Cell (WBC) Count 11.3 thou/uL (4.8-10.8)
[2019-08-18 05:26] LABS: Phosphorus 2.3 mg/dL (2.3-4.7)
[2019-08-18 05:31] LABS: ALT (SGPT) 15 U/L (8-55); AST (SGOT) 18 U/L (5-34); Albumin 2.9 g/dL (3.4-4.8); Alkaline Phosphatase 55 U/L (40-110); Anion Gap 9 mmol/L (10-20); BUN (Urea Nitrogen) 17 mg/dL (8.4-25.7); Bilirubin, Total 1.6 mg/dL (0.2-1.2); Calc. Creatinine Clearance 95 mL/min (70-130); Calcium 7.7 mg/dL (7.8-10.44); Carbon Dioxide 24 mmol/L (23-31); Chloride 111 mmol/L (98-107); Estimated GFR-MDRD 73; Globulin 2.7 g/dL (2.4-3.5); Glucose 114 mg/dL (83-110); Magnesium 2.2 mg/dL (1.6-2.6); Potassium 3.4 mmol/L (3.5-5.1); Protein, Total 5.6 g/dL (5.8-8.1); Sodium 141 mmol/L (136-145)
[2019-08-18] MEDS: Potassium Chloride 40 MEQ in Premix Bag 1 BAG IVPB PRN (05:52)
[2019-08-18] MEDS: Lorazepam 2 MG/ML VIAL SLOW IVP PRN ×2 (06:56→15:36)
--- NOTE | 2019-08-18 07:15 | OP ---
DATE OF PROCEDURE: 08/17/2019 PROCEDURE: Intubation over bronchoscope with diagnostic bronchoscopy. INDICATION: Respiratory arrest. Consent was not obtained due to the emergent nature of the procedure. I attempted to intubate the patient using oral laryngoscope; however, his short neck and anterior cords prevented visualization. A bronchoscope was then inserted orally into the trachea and a #8 endotracheal tube was then threaded over the scope. Position was confirmed with the bronchoscope demonstrating it to be about 5 cm above the main roxi. Bronchoscopy revealed diffuse erythematous airways, but no evidence of endobronchial obstruction. Bronchoscope was removed and the tube secured. Tube was additionally confirmed with CO2 monitoring. Postprocedure x-ray shows the tube to be in good position. Job ID: [id number]
--- NOTE | 2019-08-18 07:17 | OP ---
DATE OF PROCEDURE: 08/17/2019 PROCEDURE: Right subclavian triple-lumen catheter. DESCRIPTION OF PROCEDURE: Consent was not available due to the emergent nature of the procedure. He was prepped and draped in the usual fashion. Topical anesthesia was obtained with 1% lidocaine. The subclavian vein was cannulated, wire inserted, and dilated followed by placement of the triple-lumen catheter using Seldinger technique. All ports were flushed. The catheter was secured in place. Postprocedure x-ray shows the line to be in good position without pneumothorax. Job ID: [id number]
--- NOTE | 2019-08-18 07:24 | RAD ---
SINGLE VIEW OF LOWER CHEST: Date: 08/17/2019 COMPARISON: 08/17/2019. HISTORY: OG tube placement. FINDINGS: Single view of the lower chest shows an OG tube with its tip in the stomach. There is an enlarged hea rt. There is obscurity of the left hemidiaphragm which could represent a small left pleural effusion. IMPRESSION: 1. OG tube located in the stomach. 2. Possible small left pleural effusion. POS: EAA
[2019-08-18 07:35] LABS: Actual Bicarbonate (HCO3a) 24.1 mEq/L (22-28); CO2 Tension 37.7 mmHg (35.0-45.0); Calcium, Ionized 1.14 mmol/L (1.12-1.30); Carboxyhemoglobin (COHb) 1.1 gm% (0.0-3.0); O2 Tension (PaO2), arterial 80.4 mmHg (> 70.0); Potassium - ABG Lab 3.79 mmol/L (3.70-5.30); pH, Arterial 7.42 (7.35-7.45)
[2019-08-18 07:38] LABS: Puncture Site LRA
[2019-08-18 07:39] LABS: ALV-art Gradient 157.675 (0-20)
--- NOTE | 2019-08-18 07:51 | PRG ---
DATE OF SERVICE: 08/17/2019 ADDENDUM: The patient has begun to awaken and follow commands. He has tolerated reduction in IMV rate. This seems to be associated with a decrease in his sedation. He has not yet been seen by Neurology. Hopefully, we can rapidly reduce his ventilator support and extubate later today. Job ID: [id number]
--- NOTE | 2019-08-18 08:07 | PRG ---
DATE OF SERVICE: 08/17/2019 Emergency Note I was called to the room for erin marcano. The patient had previously been extubated and was doing well earlier this afternoon. Over the afternoon, he became increasingly restless. He was noted by the nurse to be apneic and cyanotic in appearance. At the time of my arrival, Ambu bagging was in place. The patient had a pulse and never required CPR. He was subsequently intubated, and a central line was placed (see separate notes). The patient did not awaken immediately following the procedure. We will provide sedation as necessary. The patient had not been seen by Neurology earlier today and presumably will be seen tomorrow morning. Neurology had asked that an MRI be performed, but it has not yet been completed. The patient's family will be notified of this abrupt change in status which in many ways is similar to his acute deterioration at [facility] prior to transfer to [facility]. There was no evidence that the patient had an arrhythmia associated with this evening's event and to me reinforces the likelihood that this is a neurologic process. Critical care time spent managing this portion of the patient's event is 40 minutes. This is added to critical care time earlier today of 22 minutes representing total day of 62 minutes, exclusive of procedural time. Job ID: [id number]
--- NOTE | 2019-08-18 08:13 | PRG ---
DATE OF SERVICE: 08/18/2019 TIME SPENT: 35 minutes of critical care time. SUBJECTIVE: Neurology ordered another COVID test on this patient yesterday despite him being negative last week. He was reintubated yesterday after failing extubation. OBJECTIVE: VITAL SIGNS: His temperature is 98.9, pulse 71, blood pressure 179/81. He is on a propofol drip. His intake for 24 hours has been 4716, output 3070. Weight 227 pounds. NEUROLOGIC: He will barely respond to me. HEENT: Otherwise, unremarkable. NECK: Old tracheostomy scar. LUNGS: Clear. CARDIAC: S1 and S2. Slightly bradycardic. ABDOMEN: Soft, obese, and nontender. EXTREMITIES: No edema. LABORATORY DATA: White blood cell count 11.3, hematocrit 39.1, and platelet count 211. A pH 7.42, pCO2 of 37, pO2 of 80. Sodium 141, potassium 3.4, chloride 111, CO2 of 24, BUN 17, creatinine 1.0, and glucose 114. Chest x-ray is unchanged. ASSESSMENT: 1. Encephalopathy, etiology undetermined. 2. Acute respiratory failure, requiring mechanical ventilation. 3. Possibility of pneumonia. PLAN: 1. Await MRI. 2. Continue supportive care. 3. Continue tube feeds. 4. Further disposition to follow based on results of neurology evaluation. Job ID: [id number]
--- NOTE | 2019-08-18 08:40 | RAD ---
RADIOGRAPH CHEST 1 VIEW: DATE: 08/18/2019 TIME: 3:53 AM HISTORY: 74-year-old male with pneumonia COMPARISON: 08/17/2019 5:34 PM FINDINGS: The esophageal tube, which had been removed, has now been reinserted, coursing inferior to the diaphr agm, with distal portion outside of field of view. Endotracheal tube and right subclavian central venous catheter remain. No pneumothorax. Left lower lo be infiltrates. Subsegmental atelectasis at right base. No interval change in appearance of the lungs. Right upper lobe relatively spared. IMPRESSION: 1. Reinsertion of esophagogastric tube. 2. No other interval change.
[2019-08-18] MEDS: Metoprolol Tartrate 50 MG TAB PER TUBE SCH ×2 (08:48→20:11)
[2019-08-18] MEDS: Enoxaparin Sodium 40 MG/0.4 ML SYRINGE SC SCH (08:48)
[2019-08-18] MEDS: Pantoprazole 40 MG VIAL IVP SCH (08:48)
[2019-08-18] MEDS: Isosorbide Mononitrate 20 MG TAB PER TUBE SCH ×2 (08:49→20:15)
[2019-08-18] MEDS: Icosapent Ethyl 1 GM CAPSULE PO SCH ×2 (08:50→20:11)
[2019-08-18 09:58] LABS: SARS-CoV-2 MS2 Positive; SARS-CoV-2 N Gene Negative; SARS-CoV-2 S Gene Negative; SARS-CoV-2 orf1ab Negative
[2019-08-18] MEDS: Multivitamins, Adult 10 ML, Folic Acid 1 MG, Thiamine HCl 100 MG in Dextrose 5 %-0.45 %... IV SCH (17:00)
--- NOTE | 2019-08-18 17:18 | MRI ---
MRI BRAIN WITH AND WITHOUT CONTRAST: Indications: Altered mental status. Comparison: CT 08-16-2019 which showed no acute abnormality. Atrophy, sinuses, and right mastoid effus ions were described. FINDINGS: Moderate cortical atrophy is seen by MRI. There are mild chronic white matter changes. No evidence of restricted diffusion. No evidence of mass or edema. No evidence of acute infarct. No abnormal enhancement identified. The intracranial internal carotid arteries and cerebral arteries show flow voids. T2 images show mucosal edema in the left maxillary sinus. T2 images also show diffuse mucosal edema t hroughout the mastoid and temporal air cells. IMPRESSION: 1. No acute intracranial abnormality. 2. Diffuse mucosal thickening in the left maxillary sinus and in the ethmoid air cells. 3. Diffuse high signal in the bilateral mastoid air cells consistent with mucosal edema. POS: [facility]
--- NOTE | 2019-08-18 18:54 | PDOC.HOSPP ---
- Subjective Encounter Date: 08/18/19 non-verbal - Objective Vital Signs & Weight: Vital Signs (12 hours) Temp Pulse Resp BP Pulse Ox 08/18/19 18:00 14 08/18/19 17:03 18 08/18/19 15:00 99.4 F 08/18/19 14:52 59 L 164/76 H 08/18/19 14:00 18 08/18/19 12:00 17 08/18/19 11:00 98.8 F 08/18/19 10:37 51 L 135/61 08/18/19 10:00 14 08/18/19 08:00 14 100 08/18/19 07:22 57 L 157/61 H 08/18/19 07:00 98.9 F Weight Admit Weight 229 lb Weight 227 lb 4.745 oz Most Recent Monitor Data Heart Rate from ECG 54 NIBP 158/68 NIBP BP-Mean 98 Respiration from ECG 14 SpO2 99 I&O: 08/17/19 08/18/19 08/19/19 06:59 06:59 06:59 Intake Total 3280 4716 1492 Output Total 1762 3070 520 Balance 1518 1646 972 Result Diagrams: 08/18/19 04:00 08/18/19 04:00 Hospitalist ROS - Medication Medications: Active Medications Generic Name Dose Route Start Last Admin Trade Name Freq PRN Reason Stop Dose Admin Aspirin 81 mg 08/14/19 21:00 08/17/19 21:37 Ecotrin PO 81 mg HS CHEL Administration Atorvastatin Calcium 40 mg 08/14/19 21:00 08/17/19 21:37 Lipitor PO 40 mg HS CHEL Administration Enoxaparin Sodium 40 mg 08/15/19 09:00 08/18/19 08:48 Lovenox SC 40 mg 0900 CHEL Administration Hydralazine HCl 10 mg 08/14/19 21:23 08/15/19 07:27 Apresoline SLOW IVP 10 mg Q4H PRN Administration SBP > 180 or DBP > 105 Multivitamins 10 ml/ Folic 1,011.2 mls @ 100 mls/hr 08/14/19 16:30 08/18/19 17:00 Acid 1 mg/ Thiamine HCl 100 mg IV 1,011.2 mls / Dextrose/Sodium Chloride Q24HR CHEL Administration Sodium Chloride 1,000 mls @ 100 mls/hr 08/14/19 15:15 08/18/19 09:20 Normal Saline 0.9% IV 1,000 mls .Q10H CHEL Administration Potassium Chloride 40 meq/ 100 mls @ 50 mls/hr 08/14/19 16:21 08/18/19 05:52 Device IVPB 100 mls ASDIR PRN Administration FOR SERUM K+ 2.5 - 3.5 Magnesium Sulfate 2 gm/ Device 50 mls @ 50 mls/hr 08/14/19 16:21 08/17/19 04: 29 IVPB 50 mls ASDIR PRN Administration MAGNESIUM < 1.4 Ampicillin Sodium/Sulbactam 100 mls @ 200 mls/hr 08/17/19 14:00 08/18/19 13: 16 Sodium 1.5 gm/ Sodium Chloride IVPB 100 mls 0200,0800,1400,2000 CHEL Administration Isosorbide Mononitrate 30 mg 08/15/19 09:00 08/18/19 08:49 Ismo PER TUBE 30 mg BID CHEL Administration Lorazepam 2 mg 08/18/19 00:04 08/18/19 15:36 Ativan SLOW IVP 09/17/19 00:04 2 mg Q1H PRN Administration Breakthrough agitation Metoprolol Tartrate 50 mg 08/15/19 09:00 08/18/19 08:48 Lopressor PER TUBE Not Given BID CHEL Miscellaneous Medication 2 gm 08/14/19 21:00 08/18/19 08:50 Vascepa PO 2 gm BID CHEL Administration Pantoprazole Sodium 40 mg 08/15/19 09:00 08/18/19 08:48 Protonix IVP 40 mg DAILY CHEL Administration Propofol 1,000 mg 08/18/19 00:04 08/18/19 17:00 Diprivan IV 09/17/19 00:04 1,000 mg INF PRN Administration TO ACHIEVE GOAL RASS Protocol - Exam General - other findings: Intubated ENT: normocephalic atraumatic Neck: supple Heart: RRR Respiratory: normal chest expansion, no tachypnea Hosp A/P (1) Acute metabolic encephalopathy Code(s): G93.41 - METABOLIC ENCEPHALOPATHY Status: Acute (2) Alcohol withdrawal Code(s): F10.239 - ALCOHOL DEPENDENCE WITH WITHDRAWAL, UNSPECIFIED Status: Acute (3) Aspiration pneumonia Code(s): J69.0 - PNEUMONITIS DUE TO INHALATION OF FOOD AND VOMIT Status: Acute (4) Acute respiratory failure with hypoxia Code(s): J96.01 - ACUTE RESPIRATORY FAILURE WITH HYPOXIA Status: Acute (5) CAD (coronary artery disease) Code(s): I25.10 - ATHSCL HEART DISEASE OF [place] CORONARY ARTERY W/O ANG PCTRS Status: Chronic (6) Dyslipidemia Code(s): E78.5 - HYPERLIPIDEMIA, UNSPECIFIED Status: Chronic (7) Hypertension, uncontrolled Code(s): I10 - ESSENTIAL (PRIMARY) HYPERTENSION Status: Resolved - Plan 08/16: Confusion and agitation is present. The patient with history of daily alcohol use. Withdrawal is likely. Initiate Ativan 2 mg every 2 hours as needed for CIWA score greater than 8. MRI of the brain is scheduled for today. Chest x-ray revealed left lower lobe basal infiltrates with effusion. Leukocytosis is elevated. Initiate Unasyn for possible aspiration pneumonia. The patient was extubated successfully. Continue supplemental oxygen as needed. His blood pressure has been uncontrolled this morning. We will await his response to alcohol withdrawal management. 08/17: The patient was intubated again yesterday. MRI of the brain was obtained today which did not show acute intracranial abnormalities. The etiology for his altered mental status is unclear. Cortisol level is normal and ammonia level is within normal limits. Alcohol withdrawal might be a factor. Currently sedated.
[2019-08-18] MEDS: Aspirin 81 mg Enteric Coated Tablet PO SCH (20:11)
[2019-08-18] MEDS: Atorvastatin Calcium 40 MG TAB PO SCH (20:11)
[2019-08-18] MEDS: hydrALAZINE 20 MG/ML VIAL SLOW IVP PRN (20:20)
[2019-08-19] MEDS: Ampicillin/Sulbactam 1.5 GM in Sodium Chloride 0.9% 100 ML IVPB SCH ×2 (02:19→07:38)
[2019-08-19] MEDS: Sodium Chloride 0.9% 1,000 ML IV SCH ×2 (03:58)
[2019-08-19 04:27] LABS: #Eosinphils 0.6 thou/uL (0.0-0.7); #Lymphocytes 1.5 thou/uL (1.20-3.40); #Monocytes 1.2 thou/uL (0.11-0.59); #Neutrophils 6.7 thou/uL (1.40-6.50); %Basophils 0.4 % (0.0-1.0); %Monocytes 11.7 % (0.0-10.0); %Neutrophils 66.8 % (42.0-75.0); Hemoglobin 13.2 g/dL (14.0-18.0); Mean Corpuscular HGB CONC 33.3 g/dL (32.0-36.0); Mean Corpuscular Hemoglobin 31.2 pg (27.0-31.0); Mean Corpuscular Volume 93.7 fL (78.0-98.0); Mean Platelet Volume 8.5 fL (7.4-10.4); Platelet Count 215 thou/uL (130-400); RBC Distribution Width 12.2 % (11.5-14.5); Red Blood Cell (RBC) Count 4.24 mill/uL (4.70-6.10); White Blood Cell (WBC) Count 10.1 thou/uL (4.8-10.8)
[2019-08-19 04:47] LABS: ALT (SGPT) 17 U/L (8-55); AST (SGOT) 18 U/L (5-34); Albumin 3.1 g/dL (3.4-4.8); Alkaline Phosphatase 68 U/L (40-110); Anion Gap 11 mmol/L (10-20); BUN (Urea Nitrogen) 17 mg/dL (8.4-25.7); Bilirubin, Total 1.3 mg/dL (0.2-1.2); Calc. Creatinine Clearance 97 mL/min (70-130); Carbon Dioxide 24 mmol/L (23-31); Chloride 111 mmol/L (98-107); Estimated GFR-MDRD 76; Globulin 2.8 g/dL (2.4-3.5); Glucose 112 mg/dL (83-110); Magnesium 2.2 mg/dL (1.6-2.6); Phosphorus 2.9 mg/dL (2.3-4.7); Potassium 3.6 mmol/L (3.5-5.1); Protein, Total 5.9 g/dL (5.8-8.1); Sodium 142 mmol/L (136-145)
[2019-08-19] MEDS: Propofol 1,000 MG/100 ML VIAL IV PRN ×4 (05:07→23:25)
[2019-08-19] MEDS: hydrALAZINE 20 MG/ML VIAL SLOW IVP PRN ×2 (06:32→20:17)
[2019-08-19 06:52] LABS: Base Excess (BEa) -1.3 mEq/L (-2.0 to +3.0); CO2 Tension 37.4 mmHg (35.0-45.0); Calcium, Ionized 1.16 mmol/L (1.12-1.30); Carboxyhemoglobin (COHb) 0.6 gm% (0.0-3.0); Potassium - ABG Lab 3.63 mmol/L (3.70-5.30); pH, Arterial 7.41 (7.35-7.45)
[2019-08-19 06:53] LABS: Puncture Site LRA
[2019-08-19] MEDS: Pantoprazole 40 MG VIAL IVP SCH (07:48)
[2019-08-19] MEDS: Enoxaparin Sodium 40 MG/0.4 ML SYRINGE SC SCH (07:49)
[2019-08-19] MEDS: Metoprolol Tartrate 50 MG TAB PER TUBE SCH ×2 (07:49→20:17)
[2019-08-19] MEDS: Icosapent Ethyl 1 GM CAPSULE PO SCH ×2 (07:49→20:17)
--- NOTE | 2019-08-19 07:50 | RAD ---
Chest one view HISTORY: Pneumonia. Follow-up. COMPARISON: 08/18/2019. FINDINGS: Cardiac silhouette is magnified and upper limits of normal in size. Pulmonary vasculature s lightly more engorged on the prior study. Slight interval increase in central parenchymal opacity and density at the left lung base, obscuring the left hemidiaphragm. Mediastinum is midline with aortic calcification. Lines and tubes appear unchanged in position. No evidence of pneumothorax. IMPRESSION : Slight interval increase in radiographic Cardiopulmonary vascular congestion and left basilar infiltrate.
[2019-08-19] MEDS: Isosorbide Mononitrate 20 MG TAB PER TUBE SCH ×2 (07:51→20:23)
--- NOTE | 2019-08-19 08:51 | PRG ---
DATE OF SERVICE: 08/19/2019 35 minutes of critical care time. SUBJECTIVE: This patient remains intubated, on mechanical ventilation. Yesterday, he had an MRI, the result of which was negative. He looks comfortable on mechanical ventilation. OBJECTIVE: VITAL SIGNS: Temperature 98.5, pulse 70, blood pressure 180/87. 24-hour intake 5024, output 1870. Weight 234 pounds. HEENT: He will open his eyes to command. NECK: No adenopathy or JVD. LUNGS: Clear to auscultation. CARDIAC: S1 and S2. Regular. ABDOMEN: Soft, obese, nontender, and nondistended. EXTREMITIES: No clubbing, cyanosis, or edema. LABORATORY DATA: ABG; pH 7.41, pCO2 of 37, pO2 of 112, on SIMV rate of 14, tidal volume 500, PEEP 5, pressor support 10, FiO2 of 40%. White blood cell count 10.1, hematocrit 39.7, and platelet count 215. Sodium 142, potassium 3.6, chloride 111, CO2 of 24, BUN 17, creatinine 2.9, glucose 112, AST 18, ALT 17. So far cultures had showed no growth today. He has had 2 negative COVID tests. ASSESSMENT: 1. Acute respiratory failure, requiring mechanical ventilation. 2. Metabolic encephalopathy of unknown etiology. 3. Possibility of aspiration pneumonia. PLAN: 1. I will go ahead and increase his Unasyn to 3 g IV q.6 hours because 1.5 g is not quite enough dosing joyner. 2. Continue tube feeds. 3. Back off on ventilator rate. 4. Hopefully, given time, his mental status will continue to improve. Today, I found him able to follow some commands, but nothing very briskly. 5. We will update family when they arrive. Job ID: [id number]
--- NOTE | 2019-08-19 10:54 | PDOC.HOSPP ---
- Subjective Encounter Date: 08/19/19 Subjective: Remains intubated. - Objective Vital Signs & Weight: Vital Signs (12 hours) Temp Pulse Resp BP 08/19/19 10:39 63 160/64 H 08/19/19 08:00 99.6 F 23 H 08/19/19 06:41 77 188/87 H 08/19/19 06:32 70 188/87 H 08/19/19 06:00 20 08/19/19 04:00 98.5 F 23 H 08/19/19 02:00 26 H 08/19/19 00:00 99.1 F 23 H Weight Admit Weight 229 lb Weight 234 lb 2.095 oz Most Recent Monitor Data Heart Rate from ECG 62 NIBP 148/65 NIBP BP-Mean 92 Respiration from ECG 21 SpO2 99 I&O: 08/18/19 08/19/19 08/20/19 06:59 06:59 06:59 Intake Total 4716 5024 180 Output Total 3070 1870 530 Balance 1646 3154 -350 Result Diagrams: 08/19/19 04:00 08/19/19 04:00 Hospitalist ROS - Medication Medications: Active Medications Generic Name Dose Route Start Last Admin Trade Name Freq PRN Reason Stop Dose Admin Aspirin 81 mg 08/14/19 21:00 08/18/19 20:11 Ecotrin PO 81 mg HS CHEL Administration Atorvastatin Calcium 40 mg 08/14/19 21:00 08/18/19 20:11 Lipitor PO 40 mg HS CHEL Administration Enoxaparin Sodium 40 mg 08/15/19 09:00 08/19/19 07:49 Lovenox SC 40 mg 0900 CHEL Administration Hydralazine HCl 10 mg 08/14/19 21:23 08/19/19 06:32 Apresoline SLOW IVP 10 mg Q4H PRN Administration SBP > 180 or DBP > 105 Multivitamins 10 ml/ Folic 1,011.2 mls @ 100 mls/hr 08/14/19 16:30 08/18/19 17:00 Acid 1 mg/ Thiamine HCl 100 mg IV 1,011.2 mls / Dextrose/Sodium Chloride Q24HR CHEL Administration Potassium Chloride 40 meq/ 100 mls @ 50 mls/hr 08/14/19 16:21 08/18/19 05:52 Device IVPB 100 mls ASDIR PRN Administration FOR SERUM K+ 2.5 - 3.5 Magnesium Sulfate 2 gm/ Device 50 mls @ 50 mls/hr 08/14/19 16:21 08/17/19 04: 29 IVPB 50 mls ASDIR PRN Administration MAGNESIUM < 1.4 Isosorbide Mononitrate 30 mg 08/15/19 09:00 08/19/19 07:51 Ismo PER TUBE 30 mg BID CHEL Administration Lorazepam 2 mg 08/18/19 00:04 08/18/19 15:36 Ativan SLOW IVP 09/17/19 00:04 2 mg Q1H PRN Administration Breakthrough agitation Metoprolol Tartrate 50 mg 08/15/19 09:00 08/19/19 07:49 Lopressor PER TUBE 50 mg BID CHEL Administration Miscellaneous Medication 2 gm 08/14/19 21:00 08/19/19 07:49 Vascepa PO 2 gm BID CHEL Administration Pantoprazole Sodium 40 mg 08/15/19 09:00 08/19/19 07:48 Protonix IVP 40 mg DAILY CHEL Administration Propofol 1,000 mg 08/18/19 00:04 08/19/19 05:07 Diprivan IV 09/17/19 00:04 1,000 mg INF PRN Administration TO ACHIEVE GOAL RASS Protocol - Exam General Appearance: awake alert ENT: normocephalic atraumatic Neck: supple Heart: RRR Respiratory: normal chest expansion, rhonchi Gastrointestinal: soft, non-tender, non-distended, normal bowel sounds Hosp A/P (1) Acute metabolic encephalopathy Code(s): G93.41 - METABOLIC ENCEPHALOPATHY Status: Acute (2) Alcohol withdrawal Code(s): F10.239 - ALCOHOL DEPENDENCE WITH WITHDRAWAL, UNSPECIFIED Status: Acute (3) Aspiration pneumonia Code(s): J69.0 - PNEUMONITIS DUE TO INHALATION OF FOOD AND VOMIT Status: Acute (4) Acute respiratory failure with hypoxia Code(s): J96.01 - ACUTE RESPIRATORY FAILURE WITH HYPOXIA Status: Acute (5) CAD (coronary artery disease) Code(s): I25.10 - ATHSCL HEART DISEASE OF [place] CORONARY ARTERY W/O ANG PCTRS Status: Chronic (6) Dyslipidemia Code(s): E78.5 - HYPERLIPIDEMIA, UNSPECIFIED Status: Chronic (7) Hypertension, uncontrolled Code(s): I10 - ESSENTIAL (PRIMARY) HYPERTENSION Status: Resolved - Plan 08/16: Confusion and agitation is present. The patient with history of daily alcohol use. Withdrawal is likely. Initiate Ativan 2 mg every 2 hours as needed for CIWA score greater than 8. MRI of the brain is scheduled for today. Chest x-ray revealed left lower lobe basal infiltrates with effusion. Leukocytosis is elevated. Initiate Unasyn for possible aspiration pneumonia. The patient was extubated successfully. Continue supplemental oxygen as needed. His blood pressure has been uncontrolled this morning. We will await his response to alcohol withdrawal management. 08/17: The patient was intubated again yesterday. MRI of the brain was obtained today which did not show acute intracranial abnormalities. The etiology for his altered mental status is unclear. Cortisol level is normal and ammonia level is within normal limits. Alcohol withdrawal might be a factor. Currently sedated. 08/18: Remains on the Vent. Continue Unasyn for aspiration pneumonia. Leukocytosis resolved. MRI of the brain unremarkable. Neurology to reassess. ?Seizures.
[2019-08-19] MEDS: Ampicillin/Sulbactam 3 GM in Sodium Chloride 0.9% 100 ML IVPB SCH ×3 (11:18→20:17)
--- NOTE | 2019-08-19 13:24 | PDOC.HOSPP ---
- Subjective Encounter Date: 08/19/19 Subjective: NEUROLOGY PROGRESS NOTE Patient remains intubated and sedated. - Objective Vital Signs & Weight: Vital Signs (12 hours) Temp Pulse Resp BP Pulse Ox 08/19/19 12:00 98.1 F 08/19/19 11:42 21 H 08/19/19 10:39 63 160/64 H 08/19/19 10:00 19 08/19/19 08:00 99.6 F 23 H 99 08/19/19 06:41 77 188/87 H 08/19/19 06:32 70 188/87 H 08/19/19 06:00 20 08/19/19 04:00 98.5 F 23 H 08/19/19 02:00 26 H Weight Admit Weight 229 lb Weight 234 lb 2.095 oz Most Recent Monitor Data Heart Rate from ECG 60 NIBP 149/65 NIBP BP-Mean 93 Respiration from ECG 16 SpO2 100 I&O: 08/18/19 08/19/19 08/20/19 06:59 06:59 06:59 Intake Total 4716 5024 180 Output Total 3070 1870 670 Balance 1646 3154 -490 Result Diagrams: 08/19/19 04:00 08/19/19 04:00 Radiology Reviewed by me: Yes EKG Reviewed by me: Yes Hospitalist ROS - Review of Systems ROS unobtainable: due to mental status Neurological: reports: confusion - Medication Medications: Active Medications Generic Name Dose Route Start Last Admin Trade Name Freq PRN Reason Stop Dose Admin Aspirin 81 mg 08/14/19 21:00 08/18/19 20:11 Ecotrin PO 81 mg HS CHEL Administration Atorvastatin Calcium 40 mg 08/14/19 21:00 08/18/19 20:11 Lipitor PO 40 mg HS CHEL Administration Enoxaparin Sodium 40 mg 08/15/19 09:00 08/19/19 07:49 Lovenox SC 40 mg 0900 CHEL Administration Hydralazine HCl 10 mg 08/14/19 21:23 08/19/19 06:32 Apresoline SLOW IVP 10 mg Q4H PRN Administration SBP > 180 or DBP > 105 Multivitamins 10 ml/ Folic 1,011.2 mls @ 100 mls/hr 08/14/19 16:30 08/18/19 17:00 Acid 1 mg/ Thiamine HCl 100 mg IV 1,011.2 mls / Dextrose/Sodium Chloride Q24HR CHEL Administration Potassium Chloride 40 meq/ 100 mls @ 50 mls/hr 08/14/19 16:21 08/18/19 05:52 Device IVPB 100 mls ASDIR PRN Administration FOR SERUM K+ 2.5 - 3.5 Magnesium Sulfate 2 gm/ Device 50 mls @ 50 mls/hr 08/14/19 16:21 08/17/19 04: 29 IVPB 50 mls ASDIR PRN Administration MAGNESIUM < 1.4 Ampicillin Sodium/Sulbactam 100 mls @ 200 mls/hr 08/19/19 08:00 08/19/19 11: 18 Sodium 3 gm/ Sodium Chloride IVPB Not Given 0200,0800,1400,2000 CHEL Isosorbide Mononitrate 30 mg 08/15/19 09:00 08/19/19 07:51 Ismo PER TUBE 30 mg BID CHEL Administration Lorazepam 2 mg 08/18/19 00:04 08/18/19 15:36 Ativan SLOW IVP 09/17/19 00:04 2 mg Q1H PRN Administration Breakthrough agitation Metoprolol Tartrate 50 mg 08/15/19 09:00 08/19/19 07:49 Lopressor PER TUBE 50 mg BID CHEL Administration Miscellaneous Medication 2 gm 08/14/19 21:00 08/19/19 07:49 Vascepa PO 2 gm BID CHEL Administration Pantoprazole Sodium 40 mg 08/15/19 09:00 08/19/19 07:48 Protonix IVP 40 mg DAILY CHEL Administration Propofol 1,000 mg 08/18/19 00:04 08/19/19 11:05 Diprivan IV 09/17/19 00:04 1,000 mg INF PRN Administration TO ACHIEVE GOAL RASS Protocol - Exam General Appearance: ill appearing Eye: PERRL ENT: normocephalic atraumatic Neck: supple Heart: RRR Respiratory: CTAB Gastrointestinal: soft Extremities: no cyanosis, no clubbing, no edema Skin: normal turgor, no lesions, no rashes Neurological: no focal deficits Psychiatric: oriented to person, oriented to place, somnolent (sedated) Hosp A/P (1) Altered mental status Code(s): R41.82 - ALTERED MENTAL STATUS, UNSPECIFIED Status: Acute (2) Acute metabolic encephalopathy Code(s): G93.41 - METABOLIC ENCEPHALOPATHY Status: Acute (3) Acute respiratory failure with hypoxia Code(s): J96.01 - ACUTE RESPIRATORY FAILURE WITH HYPOXIA Status: Acute (4) Alcohol withdrawal Code(s): F10.239 - ALCOHOL DEPENDENCE WITH WITHDRAWAL, UNSPECIFIED Status: Acute (5) Aspiration pneumonia Code(s): J69.0 - PNEUMONITIS DUE TO INHALATION OF FOOD AND VOMIT Status: Acute (6) CAD (coronary artery disease) Code(s): I25.10 - ATHSCL HEART DISEASE OF [place] CORONARY ARTERY W/O ANG PCTRS Status: Chronic (7) Dyslipidemia Code(s): E78.5 - HYPERLIPIDEMIA, UNSPECIFIED Status: Chronic (8) Alcohol use Code(s): Z72.89 - OTHER PROBLEMS RELATED TO LIFESTYLE Status: Suspected (9) Hypertension, uncontrolled Code(s): I10 - ESSENTIAL (PRIMARY) HYPERTENSION Status: Resolved - Plan plan discussed w/ family, continue antibiotics, DVT proph w/lovenox 74 year old with altered mental status which seems mulltifactorial including infectious etiology versus metabolic versus intracranial process. No focal deficits or abnormal involuntary body or eye movements appreciated on neurological examination. MRI Brain reviewed which was negative for acute intracranial process. EEG reviewed which was negative for underlying seizure activity. Neurochecks every 4 hours. Continue home medications. Continue medical management per primary team.
--- NOTE | 2019-08-19 14:00 | PDOC.PALCO ---
Palliative Care Consult - Consult Details Requesting Physician: Dr Hernandez Reason for Consult: family support - Pertinent HPI 74 year old male that initially presented to the [facility] with confusion and agitation and hypertensive emergency He was admitted to the ICU, with continued increase in agitation and aggression with subsequent intubation and transferred to [facility] for higher level of care. Continued with altered mental status, was successfully extubated 08/16 but required reintubation emergently secondary to decline. EEG did not identify any underlying seizure activity, MRI negative for any acute process. Currently on Unasyn for pneumonia, mechanical ventilation, sedation. Suspected alcohol withdrawl, confirmed daily drinker. - Pertinent PMH HTN, CAD, GERD, COPD - Social History Smoking Status: Former smoker Smoking: quit greater than 1 year Alcohol Use: daily Drug Use History: none Living Situation: - Medications MAR Reviewed: Yes - Allergies Allergies/Adverse Reactions: Allergies Allergy/AdvReac Type Severity Reaction Status Date / Time oxycodone Allergy Verified 08/14/19 16:05 Sulfa (Sulfonamide Allergy Verified 08/14/19 16:04 Antibiotics) - Subjective mechanical intubation, sedation - ROS Non Response: due to endotracheal tube, due to mental status - Objective Vital Signs: Vital Signs - Most Recent Temp Pulse Resp BP Pulse Ox 98.1 F 63 21 H 160/64 H 99 08/19/19 12:00 08/19/19 10:39 08/19/19 11:42 08/19/19 10:39 08/19/19 08:00 Palliative Performance Scale: 20 - Physical Exam Constitutional: encephalitic, ill appearing HEENT: EOMI, moist MMs Deviation from normal: mechanical ventilation Cardiovascular: RRR Gastrointestinal: soft, positive bowel sounds Genitourinary: euceda catheter Musculoskeletal: no cyanosis, no clubbing Neurology: moves all 4 limbs Skin: cap refill <2 seconds Deviation from normal: sedated, encephalopathic - Problem List (1) Palliative care encounter Code(s): Z51.5 - ENCOUNTER FOR PALLIATIVE CARE Current Visit: Yes Status: Acute (2) Acute metabolic encephalopathy Code(s): G93.41 - METABOLIC ENCEPHALOPATHY Current Visit: Yes Status: Acute (3) Acute respiratory failure with hypoxia Code(s): J96.01 - ACUTE RESPIRATORY FAILURE WITH HYPOXIA Current Visit: Yes Status: Acute (4) Alcohol withdrawal Code(s): F10.239 - ALCOHOL DEPENDENCE WITH WITHDRAWAL, UNSPECIFIED Current Visit: Yes Status: Acute (5) Altered mental status Code(s): R41.82 - ALTERED MENTAL STATUS, UNSPECIFIED Current Visit: Yes Status: Acute (6) Aspiration pneumonia Code(s): J69.0 - PNEUMONITIS DUE TO INHALATION OF FOOD AND VOMIT Current Visit : Yes Status: Acute (7) Hypertension, uncontrolled Code(s): I10 - ESSENTIAL (PRIMARY) HYPERTENSION Current Visit: Yes Status: Resolved - Plan/Recommendations Plan: Palliative Care introduced to patient . Will offer emotional support and therapeutic listening as needed. Will assist with family meeting as needed to discuss state of health and multiple morbidities. Resuscitation status was revisited. confirms currently she desires Mr Peralta to remain with full resuscitation measures, however when he is extubated will transition him to a DNAR status. Please refer to Kerry Swenson predictive maintenance specialist Notes in note section. [40] minutes spent on this encounter with >50% of the time in counseling and coordination of care. Thank you for this very appropriate consult.
[2019-08-19] MEDS: Multivitamins, Adult 10 ML, Folic Acid 1 MG, Thiamine HCl 100 MG in Dextrose 5 %-0.45 %... IV SCH (15:45)
[2019-08-19] MEDS: Aspirin 81 mg Enteric Coated Tablet PO SCH (20:17)
[2019-08-19] MEDS: Atorvastatin Calcium 40 MG TAB PO SCH (20:17)
[2019-08-19] MEDS: Lorazepam 2 MG/ML VIAL SLOW IVP PRN (20:33)
[2019-08-20] MEDS: Ampicillin/Sulbactam 3 GM in Sodium Chloride 0.9% 100 ML IVPB SCH ×4 (02:11→21:12)
[2019-08-20] MEDS: Lorazepam 2 MG/ML VIAL SLOW IVP PRN ×4 (04:13→23:44)
[2019-08-20 04:28] LABS: #Basophils 0.1 thou/uL (0.0-0.2); #Eosinphils 0.6 thou/uL (0.0-0.7); #Lymphocytes 1.6 thou/uL (1.20-3.40); #Monocytes 1.1 thou/uL (0.11-0.59); #Neutrophils 5.6 thou/uL (1.40-6.50); %Basophils 0.6 % (0.0-1.0); %Eosinophils 7.1 % (0.0-10.0); %Lymphocytes 17.6 % (21.0-51.0); %Monocytes 11.7 % (0.0-10.0); Hemoglobin 13.1 g/dL (14.0-18.0); Mean Corpuscular HGB CONC 33.7 g/dL (32.0-36.0); Mean Corpuscular Hemoglobin 31.6 pg (27.0-31.0); Mean Corpuscular Volume 93.6 fL (78.0-98.0); Mean Platelet Volume 8.5 fL (7.4-10.4); Platelet Count 222 thou/uL (130-400); RBC Distribution Width 12.2 % (11.5-14.5); Red Blood Cell (RBC) Count 4.14 mill/uL (4.70-6.10)
[2019-08-20 04:52] LABS: Phosphorus 3.2 mg/dL (2.3-4.7)
[2019-08-20 04:56] LABS: ALT (SGPT) 17 U/L (8-55); AST (SGOT) 20 U/L (5-34); Alkaline Phosphatase 75 U/L (40-110); Anion Gap 11 mmol/L (10-20); BUN (Urea Nitrogen) 19 mg/dL (8.4-25.7); Bilirubin, Total 1.2 mg/dL (0.2-1.2); Calc. Creatinine Clearance 99 mL/min (70-130); Calcium 8.2 mg/dL (7.8-10.44); Carbon Dioxide 25 mmol/L (23-31); Chloride 110 mmol/L (98-107); Estimated GFR-MDRD 75; Globulin 2.9 g/dL (2.4-3.5); Glucose 127 mg/dL (83-110); Magnesium 2.1 mg/dL (1.6-2.6); Potassium 3.4 mmol/L (3.5-5.1); Protein, Total 5.9 g/dL (5.8-8.1); Sodium 143 mmol/L (136-145)
[2019-08-20] MEDS: hydrALAZINE 20 MG/ML VIAL SLOW IVP PRN (05:05)
[2019-08-20] MEDS: Propofol 1,000 MG/100 ML VIAL IV PRN (05:05)
[2019-08-20 07:26] LABS: Actual Bicarbonate (HCO3a) 24.3 mEq/L (22-28); Base Excess (BEa) 0.3 mEq/L (-2.0 to +3.0); CO2 Tension 37.4 mmHg (35.0-45.0); Calcium, Ionized 1.16 mmol/L (1.12-1.30); Carboxyhemoglobin (COHb) 0.9 gm% (0.0-3.0); Hemoglobin (Hb) 13.5 g/dL (14.0-18.0); O2 Tension (PaO2), arterial 71.7 mmHg (> 70.0); Potassium - ABG Lab 3.33 mmol/L (3.70-5.30); pH, Arterial 7.43 (7.35-7.45)
[2019-08-20 07:28] LABS: Puncture Site RRA
[2019-08-20] MEDS ORDERED: Furosemide 40 MG/4 ML VIAL IVP SCH (08:00)
--- NOTE | 2019-08-20 08:04 | RAD ---
PORTABLE CHEST 1 VIEW: DATE: 08/20/2019. TIME: 4:24 AM. FINDINGS/IMPRESSION: The right lung apex has been excluded from the film. The remainder of the exam is otherwise stable s marika the previous day's radiograph. POS: DALE
[2019-08-20] MEDS: Pantoprazole 40 MG VIAL IVP SCH (08:05)
[2019-08-20] MEDS: Metoprolol Tartrate 50 MG TAB PER TUBE SCH ×2 (08:05→21:13)
[2019-08-20] MEDS: Enoxaparin Sodium 40 MG/0.4 ML SYRINGE SC SCH (08:06)
--- NOTE | 2019-08-20 08:08 | PRG ---
DATE OF SERVICE: 08/20/2019 Thirty five minutes critical care time. SUBJECTIVE: The patient remains intubated, on mechanical ventilation. I found him very sedated this morning on the propofol. PHYSICAL EXAMINATION: VITAL SIGNS: His temperature is 99.1, pulse 62, blood pressure 136/65, O2 saturation 97%. A 24-hour intake has been 3658, output 2290. HEENT: He has conjunctival edema. He has endotracheal tube in place. NECK: No adenopathy or JVD. LUNGS: Clear. CARDIAC: S1 and S2, regular without audible murmur. ABDOMEN: Soft and nontender. EXTREMITIES: Edematous. DIAGNOSTIC STUDIES: His chest x-ray shows a well-positioned endotracheal tube with fairly clear lung rodríguez bilaterally. LABORATORY DATA: PH 7.43, pCO2 of 37, PO2 of 71, on SIMV rate 3, tidal volume 500, PEEP 5, pressure support 8, FiO2 of 30%. Sodium 143, potassium 3.4, chloride 110, CO2 of 25, BUN 19, creatinine 0.9, glucose 127. White blood cell count 9, hematocrit 38.7, and platelet count 222. So far, cultures have shown no growth to date. Neurology workup has been negative. ASSESSMENT: 1. Metabolic encephalopathy. 2. Acute respiratory failure requiring mechanical ventilation. 3. Possibility of aspiration pneumonia. 4. Generalized fluid overload. PLAN: 1. We will try to lighten his sedation and see where his mental status is. I think his mental status has to show vast improvement before we can consider extubation. 2. I will give him a dose of diuretics today as he is getting fluid overloaded. 3. Continue antibiotics and generalized supportive care including enteral tube feeds. Job ID: [id number]
[2019-08-20] MEDS: Isosorbide Mononitrate 20 MG TAB PER TUBE SCH ×2 (08:10→21:13)
[2019-08-20] MEDS: Icosapent Ethyl 1 GM CAPSULE PO SCH ×2 (08:10→21:13)
--- NOTE | 2019-08-20 12:29 | PDOC.HOSPP ---
- Subjective Encounter Date: 08/20/19 Subjective: NEUROLOGY PROGRESS NOTE No acute events overnight. - Objective Vital Signs & Weight: Vital Signs (12 hours) Temp Pulse Resp BP 08/20/19 11:37 85 08/20/19 10:00 24 H 08/20/19 08:00 98.8 F 33 H 08/20/19 07:22 65 08/20/19 06:00 18 08/20/19 05:05 63 191/80 H 08/20/19 04:00 99.1 F 29 H 08/20/19 02:00 22 H Weight Admit Weight 229 lb Weight 238 lb 1.588 oz Most Recent Monitor Data Heart Rate from ECG 83 NIBP 143/69 NIBP BP-Mean 93 Respiration from ECG 22 SpO2 92 I&O: 08/19/19 08/20/19 08/21/19 06:59 06:59 06:59 Intake Total 5024 3658 250 Output Total 1870 2290 1800 Balance 3154 1368 -1550 Result Diagrams: 08/20/19 04:11 08/20/19 04:11 Radiology Reviewed by me: Yes EKG Reviewed by me: Yes Hospitalist ROS - Review of Systems ROS unobtainable: due to mental status Neurological: reports: confusion - Medication Medications: Active Medications Generic Name Dose Route Start Last Admin Trade Name Freq PRN Reason Stop Dose Admin Aspirin 81 mg 08/14/19 21:00 08/19/19 20:17 Ecotrin PO 81 mg HS CHEL Administration Atorvastatin Calcium 40 mg 08/14/19 21:00 08/19/19 20:17 Lipitor PO 40 mg HS CHEL Administration Enoxaparin Sodium 40 mg 08/15/19 09:00 08/20/19 08:06 Lovenox SC 40 mg 0900 CHEL Administration Hydralazine HCl 10 mg 08/14/19 21:23 08/20/19 05:05 Apresoline SLOW IVP 10 mg Q4H PRN Administration SBP > 180 or DBP > 105 Multivitamins 10 ml/ Folic 1,011.2 mls @ 100 mls/hr 08/14/19 16:30 08/19/19 15:45 Acid 1 mg/ Thiamine HCl 100 mg IV 1,011.2 mls / Dextrose/Sodium Chloride Q24HR CHEL Administration Potassium Chloride 40 meq/ 100 mls @ 50 mls/hr 08/14/19 16:21 08/18/19 05:52 Device IVPB 100 mls ASDIR PRN Administration FOR SERUM K+ 2.5 - 3.5 Magnesium Sulfate 2 gm/ Device 50 mls @ 50 mls/hr 08/14/19 16:21 08/17/19 04: 29 IVPB 50 mls ASDIR PRN Administration MAGNESIUM < 1.4 Ampicillin Sodium/Sulbactam 100 mls @ 200 mls/hr 08/19/19 08:00 08/20/19 08: 06 Sodium 3 gm/ Sodium Chloride IVPB 100 mls 0200,0800,1400,2000 CHEL Administration Isosorbide Mononitrate 30 mg 08/15/19 09:00 08/20/19 08:10 Ismo PER TUBE 30 mg BID CHEL Administration Lorazepam 2 mg 08/18/19 00:04 08/20/19 04:13 Ativan SLOW IVP 09/17/19 00:04 2 mg Q1H PRN Administration Breakthrough agitation Metoprolol Tartrate 50 mg 08/15/19 09:00 08/20/19 08:05 Lopressor PER TUBE 50 mg BID CHEL Administration Miscellaneous Medication 2 gm 08/14/19 21:00 08/20/19 08:10 Vascepa PO 2 gm BID CHEL Administration Pantoprazole Sodium 40 mg 08/15/19 09:00 08/20/19 08:05 Protonix IVP 40 mg DAILY CHEL Administration Propofol 1,000 mg 08/18/19 00:04 08/20/19 05:05 Diprivan IV 09/17/19 00:04 1,000 mg INF PRN Administration TO ACHIEVE GOAL RASS Protocol - Exam General Appearance: ill appearing Eye: PERRL, anicteric sclera ENT: normocephalic atraumatic, no oropharyngeal lesions, moist mucosa Neck: supple Heart: RRR Respiratory: CTAB Gastrointestinal: soft Extremities: no cyanosis, no clubbing, no edema Skin: normal turgor, no lesions, no rashes Neurological: cranial nerve grossly intact, normal sensation to touch, no weakness, no focal deficits, no new deficit Musculoskeletal: normal tone, no muscle wasting Musculoskeletal - other findings: Moving ll 4 extremities equally Psychiatric: normal affect, normal behavior, A&O x 3, oriented to person, oriented to place, oriented to time Hosp A/P (1) Altered mental status Code(s): R41.82 - ALTERED MENTAL STATUS, UNSPECIFIED Status: Acute (2) Acute metabolic encephalopathy Code(s): G93.41 - METABOLIC ENCEPHALOPATHY Status: Acute (3) Acute respiratory failure with hypoxia Code(s): J96.01 - ACUTE RESPIRATORY FAILURE WITH HYPOXIA Status: Acute (4) Alcohol withdrawal Code(s): F10.239 - ALCOHOL DEPENDENCE WITH WITHDRAWAL, UNSPECIFIED Status: Acute (5) Aspiration pneumonia Code(s): J69.0 - PNEUMONITIS DUE TO INHALATION OF FOOD AND VOMIT Status: Acute (6) CAD (coronary artery disease) Code(s): I25.10 - ATHSCL HEART DISEASE OF [place] CORONARY ARTERY W/O ANG PCTRS Status: Chronic (7) Dyslipidemia Code(s): E78.5 - HYPERLIPIDEMIA, UNSPECIFIED Status: Chronic (8) Alcohol use Code(s): Z72.89 - OTHER PROBLEMS RELATED TO LIFESTYLE Status: Suspected (9) Hypertension, uncontrolled Code(s): I10 - ESSENTIAL (PRIMARY) HYPERTENSION Status: Resolved - Plan plan discussed w/ family 74 year old with altered mental status which seems mulltifactorial including infectious etiology versus metabolic versus intracranial process which seems unlikely. No focal deficits or abnormal involuntary body or eye movements appreciated on neurological examination. MRI Brain reviewed which was negative for acute intracranial process. EEG reviewed which was negative for underlying seizure activity. Neurochecks every 4 hours. Continue home medications. Continue medical management per primary team. Consider [facility] protocol for alchol withdrawal. Plan and finding discussed with , nursing staff and primary attending Dr. Mendez.
[2019-08-20] MEDS: Potassium Chloride 40 MEQ in Premix Bag 1 BAG IVPB PRN (13:22)
[2019-08-20] MEDS ORDERED: Amiodarone 150 MG, Admixture Fee 1 EACH in Dextrose 5% in Water 100 ML IVPB SCH (15:15)
--- NOTE | 2019-08-20 15:23 | PDOC.HOSPP ---
- Subjective Encounter Date: 08/20/19 non-verbal Subjective: Remains on the ventilator. - Objective Vital Signs & Weight: Vital Signs (12 hours) Temp Pulse Resp BP 08/20/19 15:09 125 H 08/20/19 14:00 21 H 08/20/19 13:46 105 H 129/83 08/20/19 12:00 24 H 08/20/19 11:37 85 08/20/19 10:00 24 H 08/20/19 08:00 98.8 F 33 H 08/20/19 07:22 65 08/20/19 06:00 18 08/20/19 05:05 63 191/80 H 08/20/19 04:00 99.1 F 29 H Weight Admit Weight 229 lb Weight 238 lb 1.588 oz Most Recent Monitor Data Heart Rate from ECG 133 NIBP 103/71 NIBP BP-Mean 81 Respiration from ECG 20 SpO2 97 I&O: 08/19/19 08/20/19 08/21/19 06:59 06:59 06:59 Intake Total 5024 3658 350 Output Total 1870 2290 2930 Balance 3154 1368 -2580 Result Diagrams: 08/20/19 04:11 08/20/19 04:11 Hospitalist ROS - Medication Medications: Active Medications Generic Name Dose Route Start Last Admin Trade Name Freq PRN Reason Stop Dose Admin Acetaminophen 650 mg 08/14/19 17:01 08/20/19 14:24 Tylenol PO 650 mg Q4H PRN Administration Headache/Fever/Mild Pain (1-3) Aspirin 81 mg 08/14/19 21:00 08/19/19 20:17 Ecotrin PO 81 mg HS CHEL Administration Atorvastatin Calcium 40 mg 08/14/19 21:00 08/19/19 20:17 Lipitor PO 40 mg HS CHEL Administration Enoxaparin Sodium 40 mg 08/15/19 09:00 08/20/19 08:06 Lovenox SC 40 mg 0900 CHEL Administration Hydralazine HCl 10 mg 08/14/19 21:23 08/20/19 05:05 Apresoline SLOW IVP 10 mg Q4H PRN Administration SBP > 180 or DBP > 105 Multivitamins 10 ml/ Folic 1,011.2 mls @ 100 mls/hr 08/14/19 16:30 08/19/19 15:45 Acid 1 mg/ Thiamine HCl 100 mg IV 1,011.2 mls / Dextrose/Sodium Chloride Q24HR CHEL Administration Potassium Chloride 40 meq/ 100 mls @ 50 mls/hr 08/14/19 16:21 08/20/19 13:22 Device IVPB 100 mls ASDIR PRN Administration FOR SERUM K+ 2.5 - 3.5 Magnesium Sulfate 2 gm/ Device 50 mls @ 50 mls/hr 08/14/19 16:21 08/17/19 04: 29 IVPB 50 mls ASDIR PRN Administration MAGNESIUM < 1.4 Ampicillin Sodium/Sulbactam 100 mls @ 200 mls/hr 08/19/19 08:00 08/20/19 14: 24 Sodium 3 gm/ Sodium Chloride IVPB 100 mls 0200,0800,1400,2000 CHEL Administration Isosorbide Mononitrate 30 mg 08/15/19 09:00 08/20/19 08:10 Ismo PER TUBE 30 mg BID CHEL Administration Lorazepam 2 mg 08/18/19 00:04 08/20/19 11:45 Ativan SLOW IVP 09/17/19 00:04 2 mg Q1H PRN Administration Breakthrough agitation Metoprolol Tartrate 50 mg 08/15/19 09:00 08/20/19 08:05 Lopressor PER TUBE 50 mg BID CHEL Administration Miscellaneous Medication 2 gm 08/14/19 21:00 08/20/19 08:10 Vascepa PO 2 gm BID CHEL Administration Pantoprazole Sodium 40 mg 08/15/19 09:00 08/20/19 08:05 Protonix IVP 40 mg DAILY CHEL Administration Propofol 1,000 mg 08/18/19 00:04 08/20/19 05:05 Diprivan IV 09/17/19 00:04 1,000 mg INF PRN Administration TO ACHIEVE GOAL RASS Protocol - Exam General - other findings: The patient is sedated. Neck: supple Respiratory: normal chest expansion, rhonchi Gastrointestinal: soft, non-distended, normal bowel sounds Extremities: no cyanosis, no clubbing Hosp A/P (1) Acute metabolic encephalopathy Code(s): G93.41 - METABOLIC ENCEPHALOPATHY Status: Acute (2) Alcohol withdrawal Code(s): F10.239 - ALCOHOL DEPENDENCE WITH WITHDRAWAL, UNSPECIFIED Status: Acute (3) Aspiration pneumonia Code(s): J69.0 - PNEUMONITIS DUE TO INHALATION OF FOOD AND VOMIT Status: Acute (4) Acute respiratory failure with hypoxia Code(s): J96.01 - ACUTE RESPIRATORY FAILURE WITH HYPOXIA Status: Acute (5) CAD (coronary artery disease) Code(s): I25.10 - ATHSCL HEART DISEASE OF [place] CORONARY ARTERY W/O ANG PCTRS Status: Chronic (6) Dyslipidemia Code(s): E78.5 - HYPERLIPIDEMIA, UNSPECIFIED Status: Chronic (7) Hypertension, uncontrolled Code(s): I10 - ESSENTIAL (PRIMARY) HYPERTENSION Status: Resolved - Plan 08/16: Confusion and agitation is present. The patient with history of daily alcohol use. Withdrawal is likely. Initiate Ativan 2 mg every 2 hours as needed for CIWA score greater than 8. MRI of the brain is scheduled for today. Chest x-ray revealed left lower lobe basal infiltrates with effusion. Leukocytosis is elevated. Initiate Unasyn for possible aspiration pneumonia. The patient was extubated successfully. Continue supplemental oxygen as needed. His blood pressure has been uncontrolled this morning. We will await his response to alcohol withdrawal management. 08/17: The patient was intubated again yesterday. MRI of the brain was obtained today which did not show acute intracranial abnormalities. The etiology for his altered mental status is unclear. Cortisol level is normal and ammonia level is within normal limits. Alcohol withdrawal might be a factor. Currently sedated. 08/18: Remains on the Vent. Continue Unasyn for aspiration pneumonia. Leukocytosis resolved. MRI of the brain unremarkable. Neurology to reassess. ?Seizures. 08/22: EEG is negative per neurology. The patient's mental status still has not improved enough to be taken off the ventilator. Alcohol withdrawal is likely. The patient is on sedation. Remains on IV antibiotics for aspiration pneumonia. On tube feeding.
[2019-08-20] MEDS: Amiodarone 450 MG in Dextrose 5% in Water 250 ML IVPB SCH (15:45)
[2019-08-20] MEDS: Multivitamins, Adult 10 ML, Folic Acid 1 MG, Thiamine HCl 100 MG in Dextrose 5 %-0.45 %... IV SCH (17:29)
[2019-08-20] MEDS: Aspirin 81 mg Enteric Coated Tablet PO SCH (21:12)
[2019-08-20] MEDS: Atorvastatin Calcium 40 MG TAB PO SCH (21:12)
--- NOTE | 2019-08-20 22:15 | EKG ---
Test Reason : Blood Pressure : / mmHG Vent. Rate : 119 BPM Atrial Rate : 096 BPM P-R Int : 000 ms QRS Dur : 152 ms QT Int : 336 ms P-R-T Axes : 000 -07 036 degrees QTc Int : 472 ms Atrial fibrillation with rapid ventricular response Left bundle branch block Abnormal ECG No previous ECGs available Confirmed by Kavon AMATO ([id number]) on 08/20/2019 10:14:42 PM Referred By: LOBO Confirmed By:Kavon AMATO
[2019-08-21] MEDS: Amiodarone 450 MG in Dextrose 5% in Water 250 ML IVPB SCH ×2 (02:11→16:34)
[2019-08-21] MEDS: Ampicillin/Sulbactam 3 GM in Sodium Chloride 0.9% 100 ML IVPB SCH ×4 (02:11→19:58)
[2019-08-21] MEDS: Propofol 1,000 MG/100 ML VIAL IV PRN ×2 (02:15→12:36)
[2019-08-21 04:37] LABS: #Basophils 0.1 thou/uL (0.0-0.2); #Eosinphils 0.8 thou/uL (0.0-0.7); #Lymphocytes 1.8 thou/uL (1.20-3.40); #Monocytes 1.3 thou/uL (0.11-0.59); #Neutrophils 7.4 thou/uL (1.40-6.50); %Basophils 0.6 % (0.0-1.0); %Lymphocytes 16.2 % (21.0-51.0); %Monocytes 11.5 % (0.0-10.0); %Neutrophils 64.7 % (42.0-75.0); Mean Corpuscular HGB CONC 34.7 g/dL (32.0-36.0); Mean Corpuscular Hemoglobin 32.1 pg (27.0-31.0); Mean Corpuscular Volume 92.6 fL (78.0-98.0); Platelet Count 228 thou/uL (130-400); Red Blood Cell (RBC) Count 4.05 mill/uL (4.70-6.10); White Blood Cell (WBC) Count 11.3 thou/uL (4.8-10.8)
[2019-08-21 05:01] LABS: Phosphorus 3.3 mg/dL (2.3-4.7)
[2019-08-21 05:06] LABS: ALT (SGPT) 15 U/L (8-55); AST (SGOT) 20 U/L (5-34); Alkaline Phosphatase 70 U/L (40-110); Anion Gap 12 mmol/L (10-20); BUN (Urea Nitrogen) 24 mg/dL (8.4-25.7); Bilirubin, Total 1.5 mg/dL (0.2-1.2); Calc. Creatinine Clearance 102 mL/min (70-130); Calcium 8.1 mg/dL (7.8-10.44); Carbon Dioxide 27 mmol/L (23-31); Chloride 104 mmol/L (98-107); Estimated GFR-MDRD 75; Globulin 2.9 g/dL (2.4-3.5); Glucose 130 mg/dL (83-110); Magnesium 2.1 mg/dL (1.6-2.6); Potassium 3.2 mmol/L (3.5-5.1); Protein, Total 5.9 g/dL (5.8-8.1); Sodium 140 mmol/L (136-145)
[2019-08-21] MEDS: Morphine 2 MG/ML SYRINGE SLOW IVP PRN (05:26)
[2019-08-21 07:34] LABS: Base Excess (BEa) 1.3 mEq/L (-2.0 to +3.0); CO2 Tension 36.9 mmHg (35.0-45.0); Calcium, Ionized 1.15 mmol/L (1.12-1.30); Carboxyhemoglobin (COHb) 3.2 gm% (0.0-3.0); Hemoglobin (Hb) 11.8 g/dL (14.0-18.0); O2 Tension (PaO2), arterial 68.2 mmHg (> 70.0); Potassium - ABG Lab 4.08 mmol/L (3.70-5.30); pH, Arterial 7.45 (7.35-7.45)
[2019-08-21 07:39] LABS: Puncture Site RRA
[2019-08-21 07:40] LABS: ALV-art Gradient 99.575 (0-20)
[2019-08-21] MEDS: Lorazepam 2 MG/ML VIAL SLOW IVP PRN ×2 (07:59→17:10)
--- NOTE | 2019-08-21 08:01 | PRG ---
DATE OF SERVICE: 08/21/2019 35 minutes of critical care time. SUBJECTIVE: The patient remains on mechanical ventilation. This morning, I did get him to wake up and follow commands by holding up his thumb, moving all extremities. OBJECTIVE: VITAL SIGNS: His temperature 99.6, pulse 58, blood pressure 126/58, O2 saturation 94%. 24-hour intake 3522, output 4025. Weight 240 pounds. HEENT: Unremarkable. NECK: No adenopathy or JVD. LUNGS: Clear anteriorly. CARDIOVASCULAR: S1 and S2, now in a sinus rhythm after having atrial fibrillation yesterday. Currently on an amiodarone drip. ABDOMEN: Soft, obese, nontender, and nondistended. EXTREMITIES: No clubbing, cyanosis, or edema. LABORATORY DATA: Sodium 140, potassium 3.2, chloride 104, CO2 of 27, BUN 24, creatinine 0.9, glucose 130. White blood cell count 11.3, hematocrit 37.5, and platelet count 228. His x-ray shows some pulmonary edema bilaterally. ASSESSMENT: 1. Acute respiratory failure requiring mechanical ventilation, one failed extubation. 2. Metabolic encephalopathy, which appears to be improving. 3. Aspiration pneumonia. 4. Generalized fluid overload. PLAN: 1. He is approaching the point where he can probably be extubated again. I will talk with the when she arrives. We will maintain the patient on antibiotics. We will try to limit fluid intake, but not push the BUN and creatinine are starting to go up. 2. We may have to continually guard against alcohol withdrawal symptoms. Job ID: [id number]
[2019-08-21] MEDS: Enoxaparin Sodium 40 MG/0.4 ML SYRINGE SC SCH (08:04)
[2019-08-21] MEDS: Metoprolol Tartrate 50 MG TAB PER TUBE SCH ×2 (08:06→20:02)
[2019-08-21] MEDS: Pantoprazole 40 MG VIAL IVP SCH (08:06)
[2019-08-21] MEDS: Isosorbide Mononitrate 20 MG TAB PER TUBE SCH ×2 (08:07→20:02)
[2019-08-21] MEDS: Icosapent Ethyl 1 GM CAPSULE PO SCH ×2 (08:07→20:02)
--- NOTE | 2019-08-21 08:21 | RAD ---
PORTABLE CHEST: DATE: 08/21/2019. PROVIDED CLINICAL HISTORY: Pneumonia. FINDINGS: Comparison 08/20/2019. Significant interval change with respect to the prior examination is not appar ent. IMPRESSION: As above. POS: [facility]
[2019-08-21] MEDS: Divalproex Sodium 125 mg Sprinkle Capsule PER TUBE SCH ×2 (09:24→20:01)
[2019-08-21] MEDS: Ziprasidone 20 MG VIAL IM SCH ×2 (09:35→20:03)
--- NOTE | 2019-08-21 12:48 | EEG ---
Referring Physician:Cristóbal MCCORMACK EEG #[id number] TEST TYPE: EXTENDED CONTINUOUS VIDEO EEG REPORT: This EEG was performed using 24 channel for; to (do)TECytodyn video digital machine with 24 disc electrodes. This was an extended 2 hour 6 minutes of inpatient video EEG recording. Digital analysis of the EEG was done with spike and seizure detection which revealed no abnormalities. BACKGROUND: The posterior background rhythm was not observed HYPERVENTILATION: not performed PHOTIC STIMULATION: so significant response seen photic stimulation SLEEP: No stage changed was observed EEG DIAGNOSIS: 1) Low amplitude EEG with delta theta activity 2) Absence of posterior background rhythm CLINICAL INTERPRETATION: THIS EEG IS CONSISTENT WITH MODERATE TO SEVERE GENERALIZED NONSPECIFIC CEREBRAL DYSFUNCTION. NO ICTAL OR ICTERICALLY EPILEPTIFORM ABNORMALITIES SEEN DURING THE RECORDING. Graduate Civil Engineer: [employer] Marker: KINZA PANIAGUA
--- NOTE | 2019-08-21 12:57 | PDOC.HOSPP ---
- Subjective Encounter Date: 08/21/19 non-verbal - Objective Vital Signs & Weight: Vital Signs (12 hours) Temp Pulse Resp Pulse Ox 08/21/19 12:00 99.1 F 22 H 08/21/19 11:02 50 L 08/21/19 10:00 18 08/21/19 08:00 99.5 F 26 H 95 08/21/19 07:16 60 08/21/19 06:00 17 08/21/19 04:00 99.6 F 22 H 08/21/19 02:00 22 H Weight Admit Weight 229 lb Weight 240 lb 11.916 oz Most Recent Monitor Data Heart Rate from ECG 66 NIBP 188/94 NIBP BP-Mean 125 Respiration from ECG 21 SpO2 96 I&O: 08/20/19 08/21/19 08/22/19 06:59 06:59 06:59 Intake Total 3658 3522.4 220 Output Total 2290 4025 280 Balance 1368 -502.6 -60 Result Diagrams: 08/21/19 03:40 08/21/19 03:40 Hospitalist ROS - Medication Medications: Active Medications Generic Name Dose Route Start Last Admin Trade Name Freq PRN Reason Stop Dose Admin Acetaminophen 650 mg 08/14/19 17:01 08/20/19 14:24 Tylenol PO 650 mg Q4H PRN Administration Headache/Fever/Mild Pain (1-3) Aspirin 81 mg 08/14/19 21:00 08/20/19 21:12 Ecotrin PO 81 mg HS CHEL Administration Atorvastatin Calcium 40 mg 08/14/19 21:00 08/20/19 21:12 Lipitor PO 40 mg HS CHEL Administration Divalproex Sodium 500 mg 08/21/19 09:00 08/21/19 09:24 Depakote Sprinkle PER TUBE 500 mg BID CHEL Administration Enoxaparin Sodium 40 mg 08/15/19 09:00 08/21/19 08:04 Lovenox SC 40 mg 0900 CHEL Administration Hydralazine HCl 10 mg 08/14/19 21:23 08/20/19 05:05 Apresoline SLOW IVP 10 mg Q4H PRN Administration SBP > 180 or DBP > 105 Multivitamins 10 ml/ Folic 1,011.2 mls @ 100 mls/hr 08/14/19 16:30 08/20/19 17:29 Acid 1 mg/ Thiamine HCl 100 mg IV 1,011.2 mls / Dextrose/Sodium Chloride Q24HR CHEL Administration Potassium Chloride 40 meq/ 100 mls @ 50 mls/hr 08/14/19 16:21 08/20/19 13:22 Device IVPB 100 mls ASDIR PRN Administration FOR SERUM K+ 2.5 - 3.5 Magnesium Sulfate 2 gm/ Device 50 mls @ 50 mls/hr 08/14/19 16:21 08/17/19 04: 29 IVPB 50 mls ASDIR PRN Administration MAGNESIUM < 1.4 Ampicillin Sodium/Sulbactam 100 mls @ 200 mls/hr 08/19/19 08:00 08/21/19 08: 02 Sodium 3 gm/ Sodium Chloride IVPB 100 mls 0200,0800,1400,2000 CHEL Administration Amiodarone HCl 450 mg/ 259 mls @ 0 mls/hr 08/20/19 15:00 08/21/19 02:11 Dextrose/Water IVPB 259 mls INF CHEL Administration Protocol Per Protocol Isosorbide Mononitrate 30 mg 08/15/19 09:00 08/21/19 08:07 Ismo PER TUBE 30 mg BID CHEL Administration Lorazepam 2 mg 08/18/19 00:04 08/21/19 07:59 Ativan SLOW IVP 09/17/19 00:04 2 mg Q1H PRN Administration Breakthrough agitation Metoprolol Tartrate 50 mg 08/15/19 09:00 08/21/19 08:06 Lopressor PER TUBE 50 mg BID CHEL Administration Miscellaneous Medication 2 gm 08/14/19 21:00 08/21/19 08:07 Vascepa PO 2 gm BID CHEL Administration Morphine Sulfate 2 mg 08/18/19 00:04 08/21/19 05:26 Morphine SLOW IVP 09/17/19 00:04 2 mg Q1H PRN Administration BREAKTHROUGH PAIN/Agitation Pantoprazole Sodium 40 mg 08/15/19 09:00 08/21/19 08:06 Protonix IVP 40 mg DAILY CHEL Administration Potassium Chloride 40 meq 08/14/19 16:21 08/21/19 05:39 Klor-Con PER TUBE 40 meq ASDIR PRN Administration FOR SERUM K+ 2.5-3.5 Propofol 1,000 mg 08/18/19 00:04 08/21/19 12:36 Diprivan IV 09/17/19 00:04 1,000 mg INF PRN Administration TO ACHIEVE GOAL RASS Protocol Sodium Chloride 10 ml 08/20/19 21:00 08/21/19 08:08 Flush - Normal Saline IVF 10 ml Q12HR CHEL Administration Ziprasidone 20 mg 08/21/19 09:00 08/21/19 09:35 Geodon IM 20 mg Q12HR CHEL Administration - Exam General - other findings: Intubated Neck: supple Heart - other findings: Tachycardia Respiratory: no tachypnea, rhonchi Gastrointestinal: soft Hosp A/P (1) Acute metabolic encephalopathy Code(s): G93.41 - METABOLIC ENCEPHALOPATHY Status: Acute (2) Alcohol withdrawal Code(s): F10.239 - ALCOHOL DEPENDENCE WITH WITHDRAWAL, UNSPECIFIED Status: Acute (3) Aspiration pneumonia Code(s): J69.0 - PNEUMONITIS DUE TO INHALATION OF FOOD AND VOMIT Status: Acute (4) Acute respiratory failure with hypoxia Code(s): J96.01 - ACUTE RESPIRATORY FAILURE WITH HYPOXIA Status: Acute (5) CAD (coronary artery disease) Code(s): I25.10 - ATHSCL HEART DISEASE OF [place] CORONARY ARTERY W/O ANG PCTRS Status: Chronic (6) Dyslipidemia Code(s): E78.5 - HYPERLIPIDEMIA, UNSPECIFIED Status: Chronic (7) Hypertension, uncontrolled Code(s): I10 - ESSENTIAL (PRIMARY) HYPERTENSION Status: Resolved - Plan EEG showed moderate to severe cerebral dysfunction without ictal activity. Encephalopathy likely in part due to alcohol withdrawal. The patient remains on sedation and mechanical ventilation. Amiodarone has been initiated yesterday for atrial arrhythmia. Remains on IV antibiotics for possible aspiration pneumonia. Replace potassium.
[2019-08-21] MEDS ORDERED: Potassium Chloride 20 MEQ TAB PO SCH (13:15)
[2019-08-21 13:30] VITALS: BMI 35.5
[2019-08-21] MEDS: Multivitamins, Adult 10 ML, Folic Acid 1 MG, Thiamine HCl 100 MG in Dextrose 5 %-0.45 %... IV SCH (16:32)
[2019-08-21] MEDS: Aspirin 81 mg Enteric Coated Tablet PO SCH (20:01)
[2019-08-21] MEDS: Atorvastatin Calcium 40 MG TAB PO SCH (20:01)
[2019-08-22] MEDS: Ampicillin/Sulbactam 3 GM in Sodium Chloride 0.9% 100 ML IVPB SCH ×4 (01:12→20:12)
[2019-08-22] MEDS: Lorazepam 2 MG/ML VIAL SLOW IVP PRN ×2 (01:12→07:41)
[2019-08-22] MEDS: Propofol 1,000 MG/100 ML VIAL IV PRN (04:15)
[2019-08-22] MEDS: hydrALAZINE 20 MG/ML VIAL SLOW IVP PRN (04:16)
[2019-08-22 05:25] LABS: #Basophils 0.1 thou/uL (0.0-0.2); #Eosinphils 0.8 thou/uL (0.0-0.7); #Lymphocytes 1.3 thou/uL (1.20-3.40); #Neutrophils 6.6 thou/uL (1.40-6.50); %Basophils 0.6 % (0.0-1.0); %Eosinophils 7.7 % (0.0-10.0); %Lymphocytes 13.7 % (21.0-51.0); %Monocytes 10.6 % (0.0-10.0); %Neutrophils 67.4 % (42.0-75.0); Hemoglobin 12.9 g/dL (14.0-18.0); Mean Corpuscular HGB CONC 31.9 g/dL (32.0-36.0); Mean Platelet Volume 9.6 fL (7.4-10.4); Platelet Count 242 thou/uL (130-400); RBC Distribution Width 12.1 % (11.5-14.5); Red Blood Cell (RBC) Count 4.31 mill/uL (4.70-6.10); White Blood Cell (WBC) Count 9.8 thou/uL (4.8-10.8)
[2019-08-22 05:47] LABS: ALT (SGPT) 16 U/L (8-55); AST (SGOT) 19 U/L (5-34); Albumin 2.9 g/dL (3.4-4.8); Alkaline Phosphatase 73 U/L (40-110); Anion Gap 11 mmol/L (10-20); BUN (Urea Nitrogen) 22 mg/dL (8.4-25.7); Bilirubin, Total 1.2 mg/dL (0.2-1.2); Calc. Creatinine Clearance 107 mL/min (70-130); Calcium 8.2 mg/dL (7.8-10.44); Carbon Dioxide 28 mmol/L (23-31); Chloride 107 mmol/L (98-107); Estimated GFR-MDRD 78; Globulin 3.1 g/dL (2.4-3.5); Glucose 140 mg/dL (83-110); Magnesium 2.2 mg/dL (1.6-2.6); Potassium 3.4 mmol/L (3.5-5.1); Sodium 143 mmol/L (136-145)
[2019-08-22 06:53] LABS: Actual Bicarbonate (HCO3a) 26.3 mEq/L (22-28); Base Excess (BEa) 2.9 mEq/L (-2.0 to +3.0); CO2 Tension 36.5 mmHg (35.0-45.0); Calcium, Ionized 1.16 mmol/L (1.12-1.30); Hemoglobin (Hb) 14.5 g/dL (14.0-18.0); O2 Tension (PaO2), arterial 69.5 mmHg (> 70.0); Potassium - ABG Lab 3.98 mmol/L (3.70-5.30); pH, Arterial 7.48 (7.35-7.45)
[2019-08-22 07:30] LABS: Puncture Site LR
[2019-08-22 07:31] LABS: ALV-art Gradient 98.775 (0-20)
[2019-08-22] MEDS ORDERED: Ziprasidone 20 MG VIAL IM SCH (07:45)
[2019-08-22] MEDS: Thiamine 100 MG TAB PER TUBE SCH (07:54)
[2019-08-22] MEDS: Metoprolol Tartrate 50 MG TAB PER TUBE SCH ×2 (07:54→20:14)
[2019-08-22] MEDS: Isosorbide Mononitrate 20 MG TAB PER TUBE SCH ×2 (07:54→20:14)
[2019-08-22] MEDS: Pantoprazole 40 MG VIAL IVP SCH (07:55)
--- NOTE | 2019-08-22 07:55 | RAD ---
SINGLE VIEW OF THE CHEST: COMPARISON: 08/21/2019. HISTORY: Pneumonia. FINDINGS: A single view of the chest shows an enlarged but stable cardiomediastinal silhouette. The endotrache al tube and NG tube are unchanged in position. There are stable mixed interstitial/alveolar opacitie s. There may be a small left pleural effusion. IMPRESSION: Stable exam. POS: [facility]
--- NOTE | 2019-08-22 08:06 | PRG ---
DATE OF SERVICE: 08/22/2019 SUBJECTIVE: The patient remains on mechanical ventilation. He has been very difficult to keep sedated. PHYSICAL EXAMINATION: VITAL SIGNS: Temperature 98.7, pulse 73, blood pressure currently 196/75, 24-hour intake 3439, output 2545. Weight 242 pounds. HEENT: Pupils are reactive. Oropharynx, the ET tube in place. NECK: No adenopathy or JVD. LUNGS: Coarse breath sounds. CARDIAC: S1 and S2. Regular. ABDOMEN: Soft, obese, nontender. EXTREMITIES: No edema. LABORATORY DATA: His chest x-ray shows bilateral interstitial changes. Laboratory data; white blood cell count 9.8, hematocrit 40, and platelet count 242. pH of 7.48, pCO2 of 36, pO2 of 69, on SIMV rate 12, tidal volume 500, PEEP 5, pressure support 8, FiO2 of 30%. Sodium 134, potassium 3.4, chloride 107, CO2 of 28, BUN 22, creatinine 0.9, glucose 140. ASSESSMENT: 1. Acute respiratory failure requiring mechanical ventilation. 2. Metabolic encephalopathy. 3. Aspiration pneumonia. 4. Generalized fluid overload. PLAN: 1. Main determinate to weaning seems to be the patient's agitation in general on cooperation with things. I will go ahead and increase his Geodon, continue the Depakote and add a Duragesic patch. 2. Change to oral thiamine. 3. Add a scopolamine patch because of excess secretions. 4. Continue antibiotics through 08/25. 5. This patient was made DNR yesterday by his . I actually think his prognosis is fairly good, but he may need a tracheostomy to facilitate weaning. Job ID: [id number]
[2019-08-22] MEDS: Amiodarone 450 MG in Dextrose 5% in Water 250 ML IVPB SCH (08:15)
[2019-08-22] MEDS: Scopolamine 1.5 mg/72 hour Patch TD SCH (08:21)
[2019-08-22] MEDS: fentaNYL 50 mcg/hour Patch TD SCH (08:22)
[2019-08-22] MEDS: Enoxaparin Sodium 40 MG/0.4 ML SYRINGE SC SCH (08:28)
[2019-08-22] MEDS: Icosapent Ethyl 1 GM CAPSULE PO SCH ×2 (08:28→20:14)
[2019-08-22] MEDS: Divalproex Sodium 125 mg Sprinkle Capsule PER TUBE SCH ×2 (08:30→20:13)
[2019-08-22] MEDS: Ziprasidone 20 MG VIAL IM SCH ×2 (09:33→17:53)
--- NOTE | 2019-08-22 13:46 | PDOC.PALPN ---
Palliative Progress Note - Subjective Mechanical ventilation, sedation. - Objective Vital Signs: Vital Signs - Most Recent Temp Pulse Resp BP Pulse Ox 98.1 F 57 L 21 H 132/59 L 95 08/22/19 12:00 08/22/19 11:17 08/22/19 12:00 08/22/19 11:17 08/22/19 08:00 - Physical Exam Constitutional: encephalitic, ill appearing HEENT: moist MMs Deviation from normal: Mechanical ventilation, adventicious lung sounds Cardiovascular: RRR Gastrointestinal: soft, incontinent Genitourinary: euceda catheter Musculoskeletal: edema present, diffuse muscle atrophy Neurology: moves all 4 limbs Skin: cap refill <2 seconds Deviation from normal: sedated - Assessment (1) Palliative care encounter Code(s): Z51.5 - ENCOUNTER FOR PALLIATIVE CARE Current Visit: Yes Status: Acute (2) Acute metabolic encephalopathy Code(s): G93.41 - METABOLIC ENCEPHALOPATHY Current Visit: Yes Status: Acute (3) Acute respiratory failure with hypoxia Code(s): J96.01 - ACUTE RESPIRATORY FAILURE WITH HYPOXIA Current Visit: Yes Status: Acute (4) Alcohol withdrawal Code(s): F10.239 - ALCOHOL DEPENDENCE WITH WITHDRAWAL, UNSPECIFIED Current Visit: Yes Status: Acute (5) Altered mental status Code(s): R41.82 - ALTERED MENTAL STATUS, UNSPECIFIED Current Visit: Yes Status: Acute (6) Aspiration pneumonia Code(s): J69.0 - PNEUMONITIS DUE TO INHALATION OF FOOD AND VOMIT Current Visit : Yes Status: Acute (7) Hypertension, uncontrolled Code(s): I10 - ESSENTIAL (PRIMARY) HYPERTENSION Current Visit: Yes Status: Resolved - Plan Plan: at bedside. She desired discussion in relation to revisiting goal of care. Short review of life and what is important to patient. She expressed he would never desire to be on mechanical ventilation and that he would not desire a trach. Discussed that their son may come visit. She expressed no trach and if not able to be successfully taken off of the vent to have a compassionate extubation with no reintubation. Emotional support and Therapeutic listening. Preston Scott RNsummer child caregiver communicated with Dr Duggan and Dr Ortega. Please also refer to her notes in note section. [30] minutes spent on this encounter with >50% of the time in counseling and coordination of care. - ROS Non Response: due to endotracheal tube, due to mental status
--- NOTE | 2019-08-22 18:24 | PDOC.HOSPP ---
- Subjective Encounter Date: 08/22/19 non-verbal (On the vent) - Objective Vital Signs & Weight: Vital Signs (12 hours) Temp Pulse Resp BP Pulse Ox 08/22/19 16:00 99.0 F 18 08/22/19 15:21 54 L 159/69 H 08/22/19 14:00 34 H 08/22/19 12:00 98.1 F 21 H 08/22/19 11:17 57 L 132/59 L 08/22/19 10:00 30 H 08/22/19 08:00 99.3 F 30 H 95 08/22/19 06:38 69 176/88 H 94 L Weight Admit Weight 229 lb Weight 242 lb 11.663 oz Most Recent Monitor Data Heart Rate from ECG 52 NIBP 124/56 NIBP BP-Mean 78 Respiration from ECG 12 SpO2 90 I&O: 08/21/19 08/22/19 08/23/19 06:59 06:59 06:59 Intake Total 3522.4 3439.9 260 Output Total 4025 2545 560 Balance -502.6 894.9 -300 Result Diagrams: 08/22/19 03:30 08/22/19 03:30 Hospitalist ROS - Medication Medications: Active Medications Generic Name Dose Route Start Last Admin Trade Name Freq PRN Reason Stop Dose Admin Acetaminophen 650 mg 08/14/19 17:01 08/20/19 14:24 Tylenol PO 650 mg Q4H PRN Administration Headache/Fever/Mild Pain (1-3) Aspirin 81 mg 08/14/19 21:00 08/21/19 20:01 Ecotrin PO 81 mg HS CHEL Administration Atorvastatin Calcium 40 mg 08/14/19 21:00 08/21/19 20:01 Lipitor PO 40 mg HS CHEL Administration Divalproex Sodium 500 mg 08/21/19 09:00 08/22/19 08:30 Depakote Sprinkle PER TUBE 500 mg BID CHEL Administration Enoxaparin Sodium 40 mg 08/15/19 09:00 08/22/19 08:28 Lovenox SC 40 mg 0900 CHEL Administration Fentanyl 50 mcg 08/22/19 07:45 08/22/19 08:22 Duragesic TD 50 mcg Q3D CHEL Administration Hydralazine HCl 10 mg 08/14/19 21:23 08/22/19 04:16 Apresoline SLOW IVP 10 mg Q4H PRN Administration SBP > 180 or DBP > 105 Potassium Chloride 40 meq/ 100 mls @ 50 mls/hr 08/14/19 16:21 08/20/19 13:22 Device IVPB 100 mls ASDIR PRN Administration FOR SERUM K+ 2.5 - 3.5 Magnesium Sulfate 2 gm/ Device 50 mls @ 50 mls/hr 08/14/19 16:21 08/17/19 04: 29 IVPB 50 mls ASDIR PRN Administration MAGNESIUM < 1.4 Ampicillin Sodium/Sulbactam 100 mls @ 200 mls/hr 08/19/19 08:00 08/22/19 14: 35 Sodium 3 gm/ Sodium Chloride IVPB 08/26/19 23:59 100 mls 0200,0800,1400,2000 CHEL Administration Amiodarone HCl 450 mg/ 259 mls @ 0 mls/hr 08/20/19 15:00 08/22/19 08:15 Dextrose/Water IVPB 259 mls INF CHEL Administration Protocol Per Protocol Isosorbide Mononitrate 30 mg 08/15/19 09:00 08/22/19 07:54 Ismo PER TUBE 30 mg BID CHEL Administration Lorazepam 2 mg 08/18/19 00:04 08/22/19 07:41 Ativan SLOW IVP 09/17/19 00:04 2 mg Q1H PRN Administration Breakthrough agitation Metoprolol Tartrate 50 mg 08/15/19 09:00 08/22/19 07:54 Lopressor PER TUBE 50 mg BID CHEL Administration Miscellaneous Medication 2 gm 08/14/19 21:00 08/22/19 08:28 Vascepa PO 2 gm BID CHEL Administration Morphine Sulfate 2 mg 08/18/19 00:04 08/21/19 05:26 Morphine SLOW IVP 09/17/19 00:04 2 mg Q1H PRN Administration BREAKTHROUGH PAIN/Agitation Pantoprazole Sodium 40 mg 08/15/19 09:00 08/22/19 07:55 Protonix IVP 40 mg DAILY CHEL Administration Potassium Chloride 40 meq 08/14/19 16:21 08/22/19 06:17 Klor-Con PER TUBE 40 meq ASDIR PRN Administration FOR SERUM K+ 2.5-3.5 Propofol 1,000 mg 08/18/19 00:04 08/22/19 04:15 Diprivan IV 09/17/19 00:04 1,000 mg INF PRN Administration TO ACHIEVE GOAL RASS Protocol Scopolamine 1.5 mg 08/22/19 07:45 08/22/19 08:21 Transderm Scop TD 1.5 mg Q3D CHEL Administration Sodium Chloride 10 ml 08/20/19 21:00 08/22/19 07:55 Flush - Normal Saline IVF 10 ml Q12HR CHEL Administration Thiamine HCl 100 mg 08/22/19 09:00 08/22/19 07:54 Thiamine PER TUBE 100 mg DAILY CHEL Administration Ziprasidone 20 mg 08/22/19 09:45 08/22/19 17:53 Geodon IM 20 mg Q8H CHEL Administration - Exam General - other findings: Sedated ENT: normocephalic atraumatic Neck: supple Heart: RRR Respiratory: normal chest expansion, no tachypnea Gastrointestinal: soft, non-distended Extremities: no cyanosis Hosp A/P (1) Acute metabolic encephalopathy Code(s): G93.41 - METABOLIC ENCEPHALOPATHY Status: Acute (2) Alcohol withdrawal Code(s): F10.239 - ALCOHOL DEPENDENCE WITH WITHDRAWAL, UNSPECIFIED Status: Acute (3) Aspiration pneumonia Code(s): J69.0 - PNEUMONITIS DUE TO INHALATION OF FOOD AND VOMIT Status: Acute (4) Acute respiratory failure with hypoxia Code(s): J96.01 - ACUTE RESPIRATORY FAILURE WITH HYPOXIA Status: Acute (5) CAD (coronary artery disease) Code(s): I25.10 - ATHSCL HEART DISEASE OF [place] CORONARY ARTERY W/O ANG PCTRS Status: Chronic (6) Dyslipidemia Code(s): E78.5 - HYPERLIPIDEMIA, UNSPECIFIED Status: Chronic (7) Hypertension, uncontrolled Code(s): I10 - ESSENTIAL (PRIMARY) HYPERTENSION Status: Resolved - Plan EEG showed moderate to severe cerebral dysfunction without ictal activity. Encephalopathy likely in part due to alcohol withdrawal. The patient remains on sedation and mechanical ventilation. Amiodarone has been initiated on 08/19 for atrial arrhythmia. Remains on IV Unasyn day 07/05 for possible aspiration pneumonia. No signs of sepsis. The patient is on Geodon and antiepileptics. Weaning him off might require sometimes associating trach placement per critical care team. Palliative care team met with the and she stated that the patient would never want a trach or to remain on mechanical ventilation for a long time.
[2019-08-22] MEDS: Atorvastatin Calcium 40 MG TAB PO SCH (20:13)
[2019-08-22] MEDS: Aspirin 81 mg Enteric Coated Tablet PO SCH (20:13)
[2019-08-22] MEDS: Morphine 2 MG/ML SYRINGE SLOW IVP PRN (21:40)
[2019-08-23] MEDS: Amiodarone 450 MG in Dextrose 5% in Water 250 ML IVPB SCH (00:57)
[2019-08-23] MEDS: Ampicillin/Sulbactam 3 GM in Sodium Chloride 0.9% 100 ML IVPB SCH ×4 (02:10→19:37)
[2019-08-23] MEDS: Ziprasidone 20 MG VIAL IM SCH ×4 (02:11→19:37)
[2019-08-23 04:23] LABS: #Basophils 0.1 thou/uL (0.0-0.2); #Eosinphils 0.8 thou/uL (0.0-0.7); #Lymphocytes 1.7 thou/uL (1.20-3.40); #Neutrophils 4.6 thou/uL (1.40-6.50); %Eosinophils 9.6 % (0.0-10.0); %Lymphocytes 21.2 % (21.0-51.0); %Monocytes 11.8 % (0.0-10.0); %Neutrophils 56.5 % (42.0-75.0); Hemoglobin 11.8 g/dL (14.0-18.0); Mean Corpuscular HGB CONC 32.8 g/dL (32.0-36.0); Mean Corpuscular Volume 94.6 fL (78.0-98.0); Mean Platelet Volume 8.7 fL (7.4-10.4); Platelet Count 250 thou/uL (130-400); RBC Distribution Width 12.1 % (11.5-14.5); White Blood Cell (WBC) Count 8.2 thou/uL (4.8-10.8)
[2019-08-23 04:45] LABS: ALT (SGPT) 16 U/L (8-55); AST (SGOT) 17 U/L (5-34); Albumin 2.8 g/dL (3.4-4.8); Alkaline Phosphatase 65 U/L (40-110); Anion Gap 12 mmol/L (10-20); BUN (Urea Nitrogen) 37 mg/dL (8.4-25.7); Bilirubin, Total 0.9 mg/dL (0.2-1.2); Calc. Creatinine Clearance 81 mL/min (70-130); Calcium 7.9 mg/dL (7.8-10.44); Carbon Dioxide 28 mmol/L (23-31); Chloride 107 mmol/L (98-107); Estimated GFR-MDRD 59; Globulin 2.8 g/dL (2.4-3.5); Glucose 104 mg/dL (83-110); Magnesium 2.2 mg/dL (1.6-2.6); Potassium 3.6 mmol/L (3.5-5.1); Protein, Total 5.6 g/dL (5.8-8.1); Sodium 143 mmol/L (136-145)
[2019-08-23 04:46] LABS: Phosphorus 4.2 mg/dL (2.3-4.7)
[2019-08-23] MEDS: Propofol 1,000 MG/100 ML VIAL IV PRN (06:34)
[2019-08-23 06:59] LABS: Actual Bicarbonate (HCO3a) 24.5 mEq/L (22-28); Base Excess (BEa) -0.1 mEq/L (-2.0 to +3.0); CO2 Tension 39.7 mmHg (35.0-45.0); Calcium, Ionized 1.17 mmol/L (1.12-1.30); Carboxyhemoglobin (COHb) 1.2 gm% (0.0-3.0); Hemoglobin (Hb) 14.1 g/dL (14.0-18.0); O2 Tension (PaO2), arterial 64.1 mmHg (> 70.0); Potassium - ABG Lab 3.63 mmol/L (3.70-5.30); pH, Arterial 7.41 (7.35-7.45)
[2019-08-23 07:20] LABS: ALV-art Gradient 100.175 (0-20); Puncture Site LR
[2019-08-23] MEDS: Enoxaparin Sodium 40 MG/0.4 ML SYRINGE SC SCH (08:45)
[2019-08-23] MEDS: Divalproex Sodium 125 mg Sprinkle Capsule PER TUBE SCH ×2 (08:46→21:26)
[2019-08-23] MEDS: Thiamine 100 MG TAB PER TUBE SCH (08:46)
[2019-08-23] MEDS: Icosapent Ethyl 1 GM CAPSULE PO SCH ×2 (08:47→21:26)
[2019-08-23] MEDS: Isosorbide Mononitrate 20 MG TAB PER TUBE SCH ×2 (08:48→21:26)
[2019-08-23] MEDS: Metoprolol Tartrate 50 MG TAB PER TUBE SCH ×2 (08:48→21:27)
[2019-08-23] MEDS: Pantoprazole 40 MG VIAL IVP SCH (08:49)
--- NOTE | 2019-08-23 08:57 | RAD ---
CHEST 1 VIEW PORTABLE: Date: 08/23/2019 HISTORY: Pneumonia. COMPARISON: 08/02/2019. FINDINGS: Life support tubes remain in place and stable. Stable patchy interstitial and alveolar and ground-gla ss opacity changes throughout both lungs. No new process. IMPRESSION: Stable interstitial and alveolar and ground-glass opacity changes bilaterally with some costophrenic angle blunting. Continue short-term follow-up. POS: [facility]
--- NOTE | 2019-08-23 13:02 | PRG ---
DATE OF SERVICE: 08/23/2019 SUBJECTIVE: Mr. Worthington remains sedated and mechanically ventilated. OBJECTIVE: VITAL SIGNS: Blood pressure 112/48, heart rates in the 40s, respiratory rates in the teens, FiO2 is at 30%. LUNGS: Distant, clear. HEART: Regular rhythm. ABDOMEN: Soft and quite large. LABORATORY DATA: Bilateral infiltrates persist on his chest radiograph. White count 8.2, hemoglobin 11.8, platelets 250. Sodium 143, potassium 3.6, chloride 107, bicarb 28, BUN 37, creatinine 1.21. A pH 7.41 CO2 of 39, pO2 of 64. IMPRESSION: Respiratory failure, currently not weanable. I met with the and answered all of her questions. We will continue ventilatory support. Hopefully, he will reach a point where he is awake and cooperative. Until we find that happy medium, he is not a candidate for weaning and extubation. Job ID: [id number]
--- NOTE | 2019-08-23 19:07 | PDOC.HOSPP ---
- Subjective Encounter Date: 08/23/19 Encounter Time: 18:20 Subjective: f/u for - Objective Vital Signs & Weight: Vital Signs (12 hours) Temp Pulse Resp BP Pulse Ox 08/23/19 18:12 48 L 128/47 L 08/23/19 18:00 24 H 08/23/19 16:00 16 08/23/19 15:00 98.3 F 18 08/23/19 14:21 50 L 178/68 H 08/23/19 14:00 16 08/23/19 12:00 16 08/23/19 11:00 98.5 F 08/23/19 10:35 48 L 118/54 L 08/23/19 10:00 17 08/23/19 08:00 20 97 Weight Admit Weight 229 lb Weight 234 lb 5.622 oz Most Recent Monitor Data Heart Rate from ECG 48 NIBP 128/47 NIBP BP-Mean 74 Respiration from ECG 12 SpO2 94 I&O: 08/22/19 08/23/19 08/24/19 06:59 06:59 06:59 Intake Total 3439.9 1852.3 734 Output Total 2545 1017 560 Balance 894.9 835.3 174 Result Diagrams: 08/23/19 03:45 08/23/19 03:45 Radiology Reviewed by me: Yes (PCXR - +bilat infiltrates) EKG Reviewed by me: Yes (Tele - sinus bradycardia) Hospitalist ROS - Medication Medications: Active Medications Generic Name Dose Route Start Last Admin Trade Name Freq PRN Reason Stop Dose Admin Acetaminophen 650 mg 08/14/19 17:01 08/20/19 14:24 Tylenol PO 650 mg Q4H PRN Administration Headache/Fever/Mild Pain (1-3) Aspirin 81 mg 08/14/19 21:00 08/22/19 20:13 Ecotrin PO 81 mg HS CHEL Administration Atorvastatin Calcium 40 mg 08/14/19 21:00 08/22/19 20:13 Lipitor PO 40 mg HS CHEL Administration Divalproex Sodium 500 mg 08/21/19 09:00 08/23/19 08:46 Depakote Sprinkle PER TUBE 500 mg BID CHEL Administration Enoxaparin Sodium 40 mg 08/15/19 09:00 08/23/19 08:45 Lovenox SC 40 mg 0900 CHEL Administration Fentanyl 50 mcg 08/22/19 07:45 08/22/19 08:22 Duragesic TD 50 mcg Q3D CHEL Administration Hydralazine HCl 10 mg 08/14/19 21:23 08/22/19 04:16 Apresoline SLOW IVP 10 mg Q4H PRN Administration SBP > 180 or DBP > 105 Potassium Chloride 40 meq/ 100 mls @ 50 mls/hr 08/14/19 16:21 08/20/19 13:22 Device IVPB 100 mls ASDIR PRN Administration FOR SERUM K+ 2.5 - 3.5 Magnesium Sulfate 2 gm/ Device 50 mls @ 50 mls/hr 08/14/19 16:21 08/17/19 04: 29 IVPB 50 mls ASDIR PRN Administration MAGNESIUM < 1.4 Ampicillin Sodium/Sulbactam 100 mls @ 200 mls/hr 08/19/19 08:00 08/23/19 14: 25 Sodium 3 gm/ Sodium Chloride IVPB 08/26/19 23:59 100 mls 0200,0800,1400,2000 CHEL Administration Amiodarone HCl 450 mg/ 259 mls @ 0 mls/hr 08/20/19 15:00 08/23/19 00:57 Dextrose/Water IVPB 259 mls INF CHEL Administration Protocol Per Protocol Isosorbide Mononitrate 30 mg 08/15/19 09:00 08/23/19 08:48 Ismo PER TUBE 30 mg BID CHEL Administration Lorazepam 2 mg 08/18/19 00:04 08/22/19 07:41 Ativan SLOW IVP 09/17/19 00:04 2 mg Q1H PRN Administration Breakthrough agitation Metoprolol Tartrate 50 mg 08/15/19 09:00 08/23/19 08:48 Lopressor PER TUBE 50 mg BID CHEL Administration Miscellaneous Medication 2 gm 08/14/19 21:00 08/23/19 08:47 Vascepa PO 2 gm BID CHEL Administration Morphine Sulfate 2 mg 08/18/19 00:04 08/22/19 21:40 Morphine SLOW IVP 09/17/19 00:04 2 mg Q1H PRN Administration BREAKTHROUGH PAIN/Agitation Pantoprazole Sodium 40 mg 08/15/19 09:00 08/23/19 08:49 Protonix IVP 40 mg DAILY CHEL Administration Potassium Chloride 40 meq 08/14/19 16:21 08/22/19 06:17 Klor-Con PER TUBE 40 meq ASDIR PRN Administration FOR SERUM K+ 2.5-3.5 Propofol 1,000 mg 08/18/19 00:04 08/23/19 06:34 Diprivan IV 09/17/19 00:04 1,000 mg INF PRN Administration TO ACHIEVE GOAL RASS Protocol Scopolamine 1.5 mg 08/22/19 07:45 08/22/19 08:21 Transderm Scop TD 1.5 mg Q3D CHEL Administration Sodium Chloride 10 ml 08/20/19 21:00 08/23/19 08:49 Flush - Normal Saline IVF 10 ml Q12HR CHEL Administration Thiamine HCl 100 mg 08/22/19 09:00 08/23/19 08:46 Thiamine PER TUBE 100 mg DAILY CHEL Administration Ziprasidone 20 mg 08/22/19 09:45 08/23/19 18:41 Geodon IM Not Given Q8H CHEL - Exam General Appearance: ill appearing General - other findings: sedate on [facility] vent Eye: PERRL, anicteric sclera ENT: normocephalic atraumatic, no oropharyngeal lesions ENT - other findings: ETT in place Neck: supple, symmetric, no JVD, no thyromegaly Heart: RRR, no gallops, no rubs, normal peripheral pulses Heart - other findings: S1, S2 Respiratory: no ronchi, normal chest expansion, no tachypnea Respiratory - other findings: diminished in bases Gastrointestinal: soft, non-tender, non-distended, normal bowel sounds, no palpable masses Gastrointestinal - other findings: obese Extremities: no cyanosis, no clubbing, no edema Skin: normal turgor, no lesions Psychiatric: somnolent Hosp A/P (1) Acute respiratory failure with hypoxia Code(s): J96.01 - ACUTE RESPIRATORY FAILURE WITH HYPOXIA Status: Acute Plan: Continue [facility] ventilation and wean as clinically indicated (2) Acute metabolic encephalopathy Code(s): G93.41 - METABOLIC ENCEPHALOPATHY Status: Acute Plan: Persistent, remains on sedation per [facility] ventilation protocol, supportive (3) Alcohol withdrawal Code(s): F10.239 - ALCOHOL DEPENDENCE WITH WITHDRAWAL, UNSPECIFIED Status: Acute Plan: Lorazepam IV PRN, Thiamine, MVI (4) Aspiration pneumonia Code(s): J69.0 - PNEUMONITIS DUE TO INHALATION OF FOOD AND VOMIT Status: Acute Plan: Suspected, continue Unasyn - Plan continue antibiotics, director of social work, respiratory therapy, DVT proph w/SCDs Consults: Palliative Care Continue critical support Wean mech ventilation as clinically indicated Continue Unasyn IV Palliative care assistance appreciated AM lab: CMP, CBC, Mg++, PO3 PCXR in am
[2019-08-23] MEDS: Atorvastatin Calcium 40 MG TAB PO SCH (21:25)
[2019-08-23] MEDS: Aspirin 81 mg Enteric Coated Tablet PO SCH (21:25)
[2019-08-24] MEDS: Ziprasidone 20 MG VIAL IM SCH ×3 (01:28→17:14)
[2019-08-24] MEDS: Ampicillin/Sulbactam 3 GM in Sodium Chloride 0.9% 100 ML IVPB SCH ×4 (01:31→19:48)
[2019-08-24 05:06] LABS: #Eosinphils 0.7 thou/uL (0.0-0.7); #Lymphocytes 1.9 thou/uL (1.20-3.40); #Monocytes 0.8 thou/uL (0.11-0.59); #Neutrophils 3.1 thou/uL (1.40-6.50); %Basophils 0.7 % (0.0-1.0); %Eosinophils 10.2 % (0.0-10.0); %Lymphocytes 29.5 % (21.0-51.0); %Monocytes 12.4 % (0.0-10.0); %Neutrophils 47.2 % (42.0-75.0); Hemoglobin 12.6 g/dL (14.0-18.0); Mean Corpuscular HGB CONC 33.2 g/dL (32.0-36.0); Mean Corpuscular Hemoglobin 31.6 pg (27.0-31.0); Mean Corpuscular Volume 95.1 fL (78.0-98.0); Mean Platelet Volume 8.7 fL (7.4-10.4); Platelet Count 248 thou/uL (130-400); RBC Distribution Width 12.2 % (11.5-14.5); Red Blood Cell (RBC) Count 4.01 mill/uL (4.70-6.10); White Blood Cell (WBC) Count 6.5 thou/uL (4.8-10.8)
[2019-08-24 05:27] LABS: ALT (SGPT) 16 U/L (8-55); AST (SGOT) 17 U/L (5-34); Albumin 2.9 g/dL (3.4-4.8); Alkaline Phosphatase 68 U/L (40-110); Anion Gap 11 mmol/L (10-20); BUN (Urea Nitrogen) 42 mg/dL (8.4-25.7); Bilirubin, Total 0.8 mg/dL (0.2-1.2); Calc. Creatinine Clearance 81 mL/min (70-130); Carbon Dioxide 28 mmol/L (23-31); Chloride 107 mmol/L (98-107); Estimated GFR-MDRD 59; Glucose 101 mg/dL (83-110); Magnesium 2.3 mg/dL (1.6-2.6); Potassium 3.8 mmol/L (3.5-5.1); Protein, Total 5.9 g/dL (5.8-8.1); Sodium 142 mmol/L (136-145)
[2019-08-24 07:10] LABS: Actual Bicarbonate (HCO3a) 27.3 mEq/L (22-28); Base Excess (BEa) 2.2 mEq/L (-2.0 to +3.0); Calcium, Ionized 1.15 mmol/L (1.12-1.30); Carboxyhemoglobin (COHb) 0.9 gm% (0.0-3.0); Hemoglobin (Hb) 13.1 g/dL (14.0-18.0); O2 Tension (PaO2), arterial 75.3 mmHg (> 70.0); Potassium - ABG Lab 3.72 mmol/L (3.70-5.30); Puncture Site RR; pH, Arterial 7.41 (7.35-7.45)
[2019-08-24] MEDS: Thiamine 100 MG TAB PER TUBE SCH (08:21)
[2019-08-24] MEDS: Divalproex Sodium 125 mg Sprinkle Capsule PER TUBE SCH ×2 (08:21→19:48)
--- NOTE | 2019-08-24 08:21 | RAD ---
PORTABLE CHEST ONE VIEW: HISTORY: Pneumonia. COMPARISON: 08/23/2019 IMPRESSION: 1. Stable life support tubes. 2. Stable patchy bilateral alveolar and ground glass opacity changes with small pleural effusions. Continue short-term followup. POS: [facility]
[2019-08-24] MEDS: Pantoprazole 40 MG VIAL IVP SCH (08:22)
[2019-08-24] MEDS: Isosorbide Mononitrate 20 MG TAB PER TUBE SCH ×2 (08:22→19:49)
[2019-08-24] MEDS: Enoxaparin Sodium 40 MG/0.4 ML SYRINGE SC SCH (08:22)
[2019-08-24] MEDS: Icosapent Ethyl 1 GM CAPSULE PO SCH ×2 (08:23→19:49)
[2019-08-24] MEDS: Propofol 1,000 MG/100 ML VIAL IV PRN ×2 (08:30→17:15)
[2019-08-24] MEDS: Metoprolol Tartrate 50 MG TAB PER TUBE SCH ×2 (10:27→19:49)
[2019-08-24] MEDS ORDERED: Furosemide 100 MG/10 ML VIAL SLOW IVP SCH (12:15)
--- NOTE | 2019-08-24 13:04 | PRG ---
DATE OF SERVICE: 08/24/2019 SUBJECTIVE: Jovan Worthington is still sedated. If his propofol is turned off, he gets dyssynchronous with ventilation. We have added Precedex to see if this helps wean the propofol. OBJECTIVE: VITAL SIGNS: Blood pressure 142/52, heart rates in the 50s, and respiratory rates in the teens. LUNGS: Clear anteriorly. HEART: Regular rhythm. ABDOMEN: Quite protuberant. EXTREMITIES: Without asymmetry. Does have trace lower extremity edema. DIAGNOSTIC DATA: Chest radiograph shows stable patchy bilateral infiltrates. LABORATORY DATA: White count 6.5, hemoglobin 12.6, and platelets 248. Electrolytes are unremarkable. BUN is 42. Intake and output, positive 1005, positive 2600 over the last 3 days. We decreased his ventilatory support slightly. He was relatively bradycardic yesterday, so his amiodarone was discontinued. He is in sinus rhythm. He is still on Unasyn. Precedex was started. He is receiving Depakote and Geodon. He still received metoprolol through his tube. Begin the dose of IV Lasix today. Continue ventilatory support. He is currently not weanable. Critical care time 30 minutes. is sitting at bedside, working in [employer]. I answered all of her questions. Job ID: [id number]
[2019-08-24] MEDS: Lorazepam 2 MG/ML VIAL SLOW IVP PRN (14:23)
--- NOTE | 2019-08-24 17:22 | PDOC.HOSPP ---
- Subjective Encounter Date: 08/24/19 Encounter Time: 17:20 Subjective: f/u for resp failure, encephalopathy on Propofol/Precedex. Nursing reports family considering terminal extubation in 48h. - Objective Vital Signs & Weight: Vital Signs (12 hours) Temp Pulse Resp BP 08/24/19 16:00 14 08/24/19 15:08 48 L 106/47 L 08/24/19 15:00 98.3 F 08/24/19 14:00 17 08/24/19 13:17 48 L 119/45 L 08/24/19 12:00 98.8 F 18 08/24/19 10:18 48 L 117/47 L 08/24/19 10:00 20 08/24/19 08:00 98.8 F 15 08/24/19 06:56 58 L 161/66 H 08/24/19 06:00 98.8 F 16 Weight Admit Weight 229 lb Weight 245 lb 9.519 oz Most Recent Monitor Data Heart Rate from ECG 48 NIBP 109/47 NIBP BP-Mean 67 Respiration from ECG 11 SpO2 95 I&O: 08/23/19 08/24/19 08/25/19 06:59 06:59 06:59 Intake Total 1852.3 2355 990.7 Output Total 1017 1350 1900 Balance 835.3 1005 -909.3 Result Diagrams: 08/24/19 04:55 08/24/19 04:55 Radiology Reviewed by me: Yes (PCXR - bilat patchy infiltrates, lines/tubes in appropriate position) EKG Reviewed by me: Yes (Tele - Sinus maximiliano in 40's) Hospitalist ROS - Medication Medications: Active Medications Generic Name Dose Route Start Last Admin Trade Name Freq PRN Reason Stop Dose Admin Acetaminophen 650 mg 08/14/19 17:01 08/20/19 14:24 Tylenol PO 650 mg Q4H PRN Administration Headache/Fever/Mild Pain (1-3) Aspirin 81 mg 08/14/19 21:00 08/23/19 21:25 Ecotrin PO 81 mg HS CHEL Administration Atorvastatin Calcium 40 mg 08/14/19 21:00 08/23/19 21:25 Lipitor PO 40 mg HS CHEL Administration Divalproex Sodium 500 mg 08/21/19 09:00 08/24/19 08:21 Depakote Sprinkle PER TUBE 500 mg BID CHEL Administration Enoxaparin Sodium 40 mg 08/15/19 09:00 08/24/19 08:22 Lovenox SC 40 mg 0900 CHEL Administration Fentanyl 50 mcg 08/22/19 07:45 08/22/19 08:22 Duragesic TD 50 mcg Q3D CHEL Administration Hydralazine HCl 10 mg 08/14/19 21:23 08/22/19 04:16 Apresoline SLOW IVP 10 mg Q4H PRN Administration SBP > 180 or DBP > 105 Potassium Chloride 40 meq/ 100 mls @ 50 mls/hr 08/14/19 16:21 08/20/19 13:22 Device IVPB 100 mls ASDIR PRN Administration FOR SERUM K+ 2.5 - 3.5 Magnesium Sulfate 2 gm/ Device 50 mls @ 50 mls/hr 08/14/19 16:21 08/17/19 04: 29 IVPB 50 mls ASDIR PRN Administration MAGNESIUM < 1.4 Ampicillin Sodium/Sulbactam 100 mls @ 200 mls/hr 08/19/19 08:00 08/24/19 14: 22 Sodium 3 gm/ Sodium Chloride IVPB 08/26/19 23:59 100 mls 0200,0800,1400,2000 CHEL Administration Dexmedetomidine HCl 200 mcg/ 50 mls @ 0 mls/hr 08/24/19 10:00 08/24/19 11:46 Sodium Chloride IVPB 50 mls INF CHEL Administration Protocol Titrate Isosorbide Mononitrate 30 mg 08/15/19 09:00 08/24/19 08:22 Ismo PER TUBE 30 mg BID CHEL Administration Lorazepam 2 mg 08/18/19 00:04 08/24/19 14:23 Ativan SLOW IVP 09/17/19 00:04 2 mg Q1H PRN Administration Breakthrough agitation Metoprolol Tartrate 50 mg 08/15/19 09:00 08/24/19 10:27 Lopressor PER TUBE Not Given BID [facility] Miscellaneous Medication 2 gm 08/14/19 21:00 08/24/19 08:23 Vascepa PO Not Given BID [facility] Morphine Sulfate 2 mg 08/18/19 00:04 08/22/19 21:40 Morphine SLOW IVP 09/17/19 00:04 2 mg Q1H PRN Administration BREAKTHROUGH PAIN/Agitation Pantoprazole Sodium 40 mg 08/15/19 09:00 08/24/19 08:22 Protonix IVP 40 mg DAILY CHEL Administration Potassium Chloride 40 meq 08/14/19 16:21 08/22/19 06:17 Klor-Con PER TUBE 40 meq ASDIR PRN Administration FOR SERUM K+ 2.5-3.5 Propofol 1,000 mg 08/18/19 00:04 08/24/19 17:15 Diprivan IV 09/17/19 00:04 1,000 mg INF PRN Administration TO ACHIEVE GOAL RASS Protocol Scopolamine 1.5 mg 08/22/19 07:45 08/22/19 08:21 Transderm Scop TD 1.5 mg Q3D CHEL Administration Sodium Chloride 10 ml 08/20/19 21:00 08/24/19 08:23 Flush - Normal Saline IVF 10 ml Q12HR CHEL Administration Thiamine HCl 100 mg 08/22/19 09:00 08/24/19 08:21 Thiamine PER TUBE 100 mg DAILY CHEL Administration Ziprasidone 20 mg 08/22/19 09:45 08/24/19 17:14 Geodon IM 20 mg Q8H CHEL Administration - Exam General - other findings: sedate on mech vent Eye: anicteric sclera ENT: normocephalic atraumatic, no oropharyngeal lesions ENT - other findings: ETT in place Neck: supple, symmetric, no JVD, no thyromegaly Heart: RRR, no murmur, no gallops, no rubs, normal peripheral pulses Heart - other findings: S1, S2 Respiratory - other findings: diminished in bases, few scattered coarse sounds Gastrointestinal: soft, non-tender, non-distended, normal bowel sounds, no palpable masses Extremities: no cyanosis, no clubbing Extremities - other findings: minimal LE edema Skin: normal turgor, no lesions Musculoskeletal: generalized weakness Psychiatric: somnolent, lethargic Hosp A/P (1) Acute respiratory failure with hypoxia Code(s): J96.01 - ACUTE RESPIRATORY FAILURE WITH HYPOXIA Status: Acute Plan: Continue SIMV @ 40% FIO2, not weanable currently (2) Acute metabolic encephalopathy Code(s): G93.41 - METABOLIC ENCEPHALOPATHY Status: Acute Plan: Persistent and likely multifactorial, continue Propofol (3) Alcohol withdrawal Code(s): F10.239 - ALCOHOL DEPENDENCE WITH WITHDRAWAL, UNSPECIFIED Status: Acute (4) Aspiration pneumonia Code(s): J69.0 - PNEUMONITIS DUE TO INHALATION OF FOOD AND VOMIT Status: Acute Plan: Continue Unasyn - Plan continue antibiotics, long term care social worker, respiratory therapy, DVT proph w/SCDs Consults: Palliative Care Continue critical support Unable to wean mech ventilation Family considering terminal extubation in 48-72h Continue Unasyn IV Palliative care assistance appreciated Miralax/Dulcolax supp Continue TF's with Vital HP @ 20ml/h AM lab: CMP, CBC, Mg++, PO3 PCXR in am
[2019-08-24] MEDS ORDERED: Polyethylene Glycol 3350 17 GM Packet PER TUBE SCH (19:00)
[2019-08-24] MEDS ORDERED: Bisacodyl 10 MG SUPP PR SCH (19:00)
[2019-08-24] MEDS: Atorvastatin Calcium 40 MG TAB PO SCH (19:48)
[2019-08-24] MEDS: Aspirin 81 mg Enteric Coated Tablet PO SCH (19:48)
[2019-08-25] MEDS: Ziprasidone 20 MG VIAL IM SCH (02:23)
[2019-08-25] MEDS: Ampicillin/Sulbactam 3 GM in Sodium Chloride 0.9% 100 ML IVPB SCH ×4 (02:25→19:29)
[2019-08-25 06:11] LABS: #Basophils 0.1 thou/uL (0.0-0.2); #Eosinphils 0.6 thou/uL (0.0-0.7); #Lymphocytes 1.3 thou/uL (1.20-3.40); #Monocytes 0.8 thou/uL (0.11-0.59); #Neutrophils 2.8 thou/uL (1.40-6.50); %Eosinophils 10.9 % (0.0-10.0); %Lymphocytes 23.6 % (21.0-51.0); %Monocytes 14.8 % (0.0-10.0); %Neutrophils 49.8 % (42.0-75.0); Hemoglobin 12.8 g/dL (14.0-18.0); Mean Corpuscular HGB CONC 33.2 g/dL (32.0-36.0); Mean Corpuscular Hemoglobin 31.1 pg (27.0-31.0); Mean Corpuscular Volume 93.8 fL (78.0-98.0); Mean Platelet Volume 9.6 fL (7.4-10.4); Platelet Count 234 thou/uL (130-400); Red Blood Cell (RBC) Count 4.12 mill/uL (4.70-6.10); White Blood Cell (WBC) Count 5.6 thou/uL (4.8-10.8)
[2019-08-25 06:24] LABS: Phosphorus 3.9 mg/dL (2.3-4.7)
[2019-08-25 06:25] LABS: ALT (SGPT) 17 U/L (8-55); AST (SGOT) 20 U/L (5-34); Albumin 2.9 g/dL (3.4-4.8); Alkaline Phosphatase 69 U/L (40-110); Anion Gap 13 mmol/L (10-20); BUN (Urea Nitrogen) 41 mg/dL (8.4-25.7); Bilirubin, Total 0.9 mg/dL (0.2-1.2); Calc. Creatinine Clearance 80 mL/min (70-130); Calcium 8.4 mg/dL (7.8-10.44); Carbon Dioxide 31 mmol/L (23-31); Chloride 105 mmol/L (98-107); Estimated GFR-MDRD 55; Globulin 3.1 g/dL (2.4-3.5); Glucose 99 mg/dL (83-110); Magnesium 2.3 mg/dL (1.6-2.6); Potassium 3.7 mmol/L (3.5-5.1); Sodium 145 mmol/L (136-145)
[2019-08-25 06:47] LABS: CO2 Tension 45.3 mmHg (35.0-45.0); Calcium, Ionized 1.17 mmol/L (1.12-1.30); Carboxyhemoglobin (COHb) 0.9 gm% (0.0-3.0); Hemoglobin (Hb) 15.2 g/dL (14.0-18.0); O2 Tension (PaO2), arterial 77.8 mmHg (> 70.0); Potassium - ABG Lab 3.77 mmol/L (3.70-5.30); pH, Arterial 7.44 (7.35-7.45)
[2019-08-25 06:54] LABS: ALV-art Gradient 150.775 (0-20); Puncture Site RRA
[2019-08-25] MEDS: Bisacodyl 10 MG SUPP PR SCH ×3 (07:01→19:31)
[2019-08-25] MEDS: Scopolamine 1.5 mg/72 hour Patch TD SCH (07:47)
--- NOTE | 2019-08-25 08:17 | PRG ---
DATE OF SERVICE: 08/25/2019 A 35 minutes of critical care time. SUBJECTIVE: The patient remains intubated on mechanical ventilation. There has been no improvement over the weekend that I can see. OBJECTIVE: VITAL SIGNS: His temperature is 98.4, pulse in the 40s, blood pressure 158/64, and O2 saturation 99%. A 24-hour intake 2269 and output 3970. HEENT: Unremarkable. Periorbital edema. Endotracheal tube in place. NECK: Old tracheostomy scar noted. LUNGS: Coarse rhonchi. CARDIOVASCULAR: S1 and S2. Slightly bradycardic. ABDOMEN: Soft, obese, nontender, and nondistended. EXTREMITIES: No clubbing, cyanosis, or edema. LABORATORY DATA: Sodium 145, potassium 3.7, chloride 105, CO2 of 31, BUN 41, creatinine 1.2, glucose 99, and albumin 2.9. A pH of 7.44, pCO2 of 45, and pO2 of 77 on SIMV rate of 10, tidal volume 500, PEEP 5, pressure support of 12, and FiO2 of 40%. White blood cell count 5.6, hematocrit 38.7, and platelet count 234. His x-ray shows some vascular congestion bilaterally. ASSESSMENT: 1. Acute respiratory failure requiring mechanical ventilation. 2. Metabolic encephalopathy. 3. Paroxysmal atrial fibrillation. 4. Past heavy alcohol consumption. PLAN: 1. I was told by Palliative Care on Sunday that the patient's did not want to proceed with tracheostomy. Right now, the main issue seems to be weaning him from sedation without him becoming too wild. He continues on some antibiotics for presumed pneumonia. Those should be stopped after tomorrow. 2. We will try to maintain him on Precedex and hold the propofol as much as possible. 3. I will go ahead and stop the Geodon because of the bradycardia. 4. Continue the Depakote. Job ID: [id number]
[2019-08-25] MEDS: Metoprolol Tartrate 50 MG TAB PER TUBE SCH ×2 (08:38→19:31)
[2019-08-25] MEDS: Enoxaparin Sodium 40 MG/0.4 ML SYRINGE SC SCH (08:38)
[2019-08-25] MEDS: Polyethylene Glycol 3350 17 GM Packet PER TUBE SCH (08:38)
[2019-08-25] MEDS: Pantoprazole 40 MG VIAL IVP SCH (08:38)
[2019-08-25] MEDS: Thiamine 100 MG TAB PER TUBE SCH (08:38)
[2019-08-25] MEDS: Icosapent Ethyl 1 GM CAPSULE PO SCH ×2 (08:39→21:05)
[2019-08-25] MEDS: fentaNYL 50 mcg/hour Patch TD SCH (09:02)
[2019-08-25] MEDS: Divalproex Sodium 125 mg Sprinkle Capsule PER TUBE SCH ×2 (09:14→19:30)
[2019-08-25] MEDS: Isosorbide Mononitrate 20 MG TAB PER TUBE SCH ×2 (09:15→19:30)
[2019-08-25] MEDS: Propofol 1,000 MG/100 ML VIAL IV PRN (09:32)
--- NOTE | 2019-08-25 10:31 | RAD ---
CHEST 1 VIEW: HISTORY: Pneumonia, respiratory insufficiency. COMPARISON: 08/24/2019. FINDINGS/IMPRESSION: Minimally progressive bilateral interstitial and alveolar opacity changes and pleural effusions. Sli ght worsening from prior study. continued short-term followup. Life support tubes stable in place. POS: [facility]
--- NOTE | 2019-08-25 14:27 | PDOC.HOSPP ---
- Subjective Encounter Date: 08/25/19 Encounter Time: 13:30 Subjective: f/u for resp failure on mech ventilation and unweanable. Family considering terminal extubation. - Objective Vital Signs & Weight: Vital Signs (12 hours) Temp Pulse Resp BP Pulse Ox 08/25/19 12:00 98.9 F 16 08/25/19 10:21 45 L 135/54 L 08/25/19 10:00 15 08/25/19 08:00 98.7 F 20 96 08/25/19 06:36 49 L 164/66 H 08/25/19 06:00 14 08/25/19 04:00 98.4 F Weight Admit Weight 229 lb Weight 242 lb 8.136 oz Most Recent Monitor Data Heart Rate from ECG 44 NIBP 140/56 NIBP BP-Mean 84 Respiration from ECG 14 SpO2 96 I&O: 08/24/19 08/25/19 08/26/19 06:59 06:59 06:59 Intake Total 2355 2269.6 210 Output Total 1350 3970 420 Balance 1005 -1700.4 -210 Result Diagrams: 08/25/19 04:15 08/25/19 04:15 Radiology Reviewed by me: Yes (PCXR - bilat interstitial/alveolar opacities) EKG Reviewed by me: Yes (Tele - Sinus bradycardia) Hospitalist ROS - Medication Medications: Active Medications Generic Name Dose Route Start Last Admin Trade Name Freq PRN Reason Stop Dose Admin Acetaminophen 650 mg 08/14/19 17:01 08/20/19 14:24 Tylenol PO 650 mg Q4H PRN Administration Headache/Fever/Mild Pain (1-3) Aspirin 81 mg 08/14/19 21:00 08/24/19 19:48 Ecotrin PO 81 mg HS CHEL Administration Atorvastatin Calcium 40 mg 08/14/19 21:00 08/24/19 19:48 Lipitor PO 40 mg HS CHEL Administration Bisacodyl 10 mg 08/25/19 06:00 08/25/19 13:14 Dulcolax [place] 10 mg Q8HR CHEL Administration Divalproex Sodium 500 mg 08/21/19 09:00 08/25/19 09:14 Depakote Sprinkle PER TUBE 500 mg BID CHEL Administration Enoxaparin Sodium 40 mg 08/15/19 09:00 08/25/19 08:38 Lovenox SC 40 mg 0900 CHEL Administration Fentanyl 50 mcg 08/22/19 07:45 08/25/19 09:02 Duragesic TD 50 mcg Q3D CHEL Administration Hydralazine HCl 10 mg 08/14/19 21:23 08/22/19 04:16 Apresoline SLOW IVP 10 mg Q4H PRN Administration SBP > 180 or DBP > 105 Potassium Chloride 40 meq/ 100 mls @ 50 mls/hr 08/14/19 16:21 08/20/19 13:22 Device IVPB 100 mls ASDIR PRN Administration FOR SERUM K+ 2.5 - 3.5 Magnesium Sulfate 2 gm/ Device 50 mls @ 50 mls/hr 08/14/19 16:21 08/17/19 04: 29 IVPB 50 mls ASDIR PRN Administration MAGNESIUM < 1.4 Ampicillin Sodium/Sulbactam 100 mls @ 200 mls/hr 08/19/19 08:00 08/25/19 13: 12 Sodium 3 gm/ Sodium Chloride IVPB 08/26/19 23:59 100 mls 0200,0800,1400,2000 CHEL Administration Dexmedetomidine HCl 400 mcg/ 100 mls @ 0 mls/hr 08/24/19 23:45 08/25/19 06:22 Sodium Chloride IVPB 100 mls INF CHEL Administration Protocol Titrate Isosorbide Mononitrate 30 mg 08/15/19 09:00 08/25/19 09:15 Ismo PER TUBE 30 mg BID CHEL Administration Lorazepam 2 mg 08/18/19 00:04 08/24/19 14:23 Ativan SLOW IVP 09/17/19 00:04 2 mg Q1H PRN Administration Breakthrough agitation Metoprolol Tartrate 50 mg 08/15/19 09:00 08/25/19 08:38 Lopressor PER TUBE Not Given BID [facility]HEL Miscellaneous Medication 2 gm 08/14/19 21:00 08/25/19 08:39 Vascepa PO 2 gm BID CHEL Administration Morphine Sulfate 2 mg 08/18/19 00:04 08/22/19 21:40 Morphine SLOW IVP 09/17/19 00:04 2 mg Q1H PRN Administration BREAKTHROUGH PAIN/Agitation Pantoprazole Sodium 40 mg 08/15/19 09:00 08/25/19 08:38 Protonix IVP 40 mg DAILY CHEL Administration Polyethylene Glycol 17 gm 08/25/19 09:00 08/25/19 08:38 Miralax PER TUBE 17 gm DAILY CHEL Administration Potassium Chloride 40 meq 08/14/19 16:21 08/22/19 06:17 Klor-Con PER TUBE 40 meq ASDIR PRN Administration FOR SERUM K+ 2.5-3.5 Propofol 1,000 mg 08/18/19 00:04 08/25/19 09:32 Diprivan IV 09/17/19 00:04 1,000 mg INF PRN Administration TO ACHIEVE GOAL RASS Protocol Scopolamine 1.5 mg 08/22/19 07:45 08/25/19 07:47 Transderm Scop TD 1.5 mg Q3D CHEL Administration Sodium Chloride 10 ml 08/20/19 21:00 08/25/19 09:15 Flush - Normal Saline IVF 10 ml Q12HR CHEL Administration Thiamine HCl 100 mg 08/22/19 09:00 08/25/19 08:38 Thiamine PER TUBE 100 mg DAILY CHEL Administration - Exam General - other findings: unresponsive on mech ventilation ENT: normocephalic atraumatic, no oropharyngeal lesions ENT - other findings: ETT in place Neck: supple, symmetric, no JVD, no thyromegaly Heart: RRR, no gallops, no rubs, normal peripheral pulses Heart - other findings: S1, S2 bradycardic Respiratory: no wheezes, no tachypnea Respiratory - other findings: diminished in bases bilat Gastrointestinal: soft, non-tender, non-distended, normal bowel sounds, no palpable masses Extremities: no cyanosis, no clubbing, 1+ LE edema Skin: normal turgor, no lesions Neurological - other findings: unresponsive on sedation Musculoskeletal: generalized weakness Psychiatric: somnolent, lethargic Hosp A/P (1) Acute respiratory failure with hypoxia Code(s): J96.01 - ACUTE RESPIRATORY FAILURE WITH HYPOXIA Status: Acute Plan: Unweanable currently, continue mech ventilation as family decides terminal extubation option (2) Acute metabolic encephalopathy Code(s): G93.41 - METABOLIC ENCEPHALOPATHY Status: Acute Plan: persistent, multifactorial including sedation, prolonged CCU stay, ETOH abuse (3) Alcohol withdrawal Code(s): F10.239 - ALCOHOL DEPENDENCE WITH WITHDRAWAL, UNSPECIFIED Status: Acute (4) Aspiration pneumonia Code(s): J69.0 - PNEUMONITIS DUE TO INHALATION OF FOOD AND VOMIT Status: Acute Plan: Continue Unasyn - Plan continue antibiotics, social worker clinical, respiratory therapy, DVT proph w/SCDs Consults: Palliative Care Continue critical support Unable to wean mech ventilation Family considering terminal extubation in 48h Continue Unasyn IV Palliative care assistance appreciated Miralax/Dulcolax supp Continue TF's with Vital HP @ 20ml/h AM lab: CMP, CBC, Mg++, PO3 PCXR in am
[2019-08-25] MEDS: Aspirin 81 mg Enteric Coated Tablet PO SCH (19:30)
[2019-08-25] MEDS: Atorvastatin Calcium 40 MG TAB PO SCH (19:30)
[2019-08-26] MEDS: Propofol 1,000 MG/100 ML VIAL IV PRN (00:40)
[2019-08-26] MEDS: Ampicillin/Sulbactam 3 GM in Sodium Chloride 0.9% 100 ML IVPB SCH ×4 (03:13→19:21)
[2019-08-26 04:49] LABS: #Eosinphils 0.5 thou/uL (0.0-0.7); #Lymphocytes 1.4 thou/uL (1.20-3.40); #Monocytes 0.7 thou/uL (0.11-0.59); #Neutrophils 2.9 thou/uL (1.40-6.50); %Basophils 0.7 % (0.0-1.0); %Eosinophils 9.1 % (0.0-10.0); %Lymphocytes 25.6 % (21.0-51.0); %Monocytes 12.9 % (0.0-10.0); %Neutrophils 51.7 % (42.0-75.0); Hemoglobin 12.5 g/dL (14.0-18.0); Mean Corpuscular HGB CONC 31.7 g/dL (32.0-36.0); Mean Corpuscular Hemoglobin 29.9 pg (27.0-31.0); Mean Corpuscular Volume 94.2 fL (78.0-98.0); Platelet Count 244 thou/uL (130-400); RBC Distribution Width 11.9 % (11.5-14.5); Red Blood Cell (RBC) Count 4.19 mill/uL (4.70-6.10); White Blood Cell (WBC) Count 5.6 thou/uL (4.8-10.8)
[2019-08-26 05:10] LABS: Phosphorus 2.9 mg/dL (2.3-4.7)
[2019-08-26 05:12] LABS: ALT (SGPT) 21 U/L (8-55); AST (SGOT) 21 U/L (5-34); Albumin 2.9 g/dL (3.4-4.8); Alkaline Phosphatase 76 U/L (40-110); Anion Gap 12 mmol/L (10-20); BUN (Urea Nitrogen) 37 mg/dL (8.4-25.7); Bilirubin, Total 0.8 mg/dL (0.2-1.2); Calc. Creatinine Clearance 94 mL/min (70-130); Calcium 8.5 mg/dL (7.8-10.44); Carbon Dioxide 29 mmol/L (23-31); Chloride 104 mmol/L (98-107); Estimated GFR-MDRD 70; Glucose 128 mg/dL (83-110); Magnesium 2.2 mg/dL (1.6-2.6); Potassium 3.6 mmol/L (3.5-5.1); Protein, Total 5.9 g/dL (5.8-8.1); Sodium 141 mmol/L (136-145)
[2019-08-26] MEDS: Bisacodyl 10 MG SUPP PR SCH ×3 (06:49→21:54)
--- NOTE | 2019-08-26 07:53 | RAD ---
EXAM: CHEST ONE VIEW HISTORY: Pneumonia COMPARISON: 08/25/2019 FINDINGS: Endotracheal tube, nasogastric tube, and right-sided vascular catheter remain in place. Cardiac silho uette is magnified by projection but stable in size. Bilateral interstitial and alveolar opacities are again seen within the lungs bilaterally which are overall similar to the prior study given differ ences in technique. Probable small left pleural effusion is present. No other interval change. IMPRESSION: 1. Persistent bilateral interstitial and alveolar opacities suggesting infectious process. Follow-up to complete resolution is recommended. 2. Small left pleural effusion. 3. Lines tubes stable in position.
--- NOTE | 2019-08-26 08:38 | PRG ---
DATE OF SERVICE: 08/26/2019 TIME SPENT: 35 minutes of critical care time. SUBJECTIVE: The patient remains intubated on mechanical ventilation. is here this morning. She wants the patient to be compassionately extubated. When sedation is lowered, the patient can actually follow commands and looks pretty good. OBJECTIVE: VITAL SIGNS: On exam, temperature is 98.8, pulse 81, blood pressure 170/86, and O2 saturation 92%. Total intake 2552, output 1640. HEENT: Unremarkable. NECK: No adenopathy or JVD. LUNGS: Clear. CARDIAC: S1 and S2. Regular. ABDOMEN: Obese, soft, and nontender. EXTREMITIES: No edema. LABORATORY DATA: White blood cell count 5.6, hematocrit 39.5, and platelet count 244. Sodium 141, potassium 3.6, BUN 37, creatinine 1.0, and glucose 128. Chest x-ray shows no acute changes. ASSESSMENT: 1. Acute respiratory failure, requiring mechanical ventilation. 2. Metabolic encephalopathy - improved. 3. Paroxysmal atrial fibrillation. 4. History of heavy alcohol consumption. PLAN: We plan to extubate today and observe. I think he actually might do fairly well, provided he can keep his secretions clear. We will follow. Job ID: [id number]
[2019-08-26] MEDS ORDERED: Lorazepam 2 MG/ML VIAL SLOW IVP PRN (08:39)
[2019-08-26] MEDS: Lorazepam 2 MG/ML VIAL SLOW IVP PRN ×4 (08:45→18:48)
--- NOTE | 2019-08-26 08:48 | PDOC.PALPN ---
Palliative Progress Note - Subjective Compassionately extubated. Confusion and restlessness. at bedside - Objective Vital Signs: Vital Signs - Most Recent Temp Pulse Resp BP Pulse Ox 98.8 F 43 L 24 H 155/62 H 96 08/26/19 06:00 08/26/19 07:23 08/26/19 08:00 08/26/19 07:23 08/26/19 07:36 - Physical Exam Constitutional: confusion, encephalitic, ill appearing, mild distress HEENT: EOMI, moist MMs, scleral icterus Respiratory: diminished lung sound Cardiovascular: RRR Gastrointestinal: incontinent Deviation from normal: Mildly distended, non tender Genitourinary: euceda catheter Musculoskeletal: no clubbing, pulses present, diffuse muscle atrophy Neurology: moves all 4 limbs Skin: cap refill <2 seconds Deviation from normal: encephalopathic - Assessment (1) Palliative care encounter Code(s): Z51.5 - ENCOUNTER FOR PALLIATIVE CARE Current Visit: Yes Status: Acute (2) Acute metabolic encephalopathy Code(s): G93.41 - METABOLIC ENCEPHALOPATHY Current Visit: Yes Status: Acute (3) Acute respiratory failure with hypoxia Code(s): J96.01 - ACUTE RESPIRATORY FAILURE WITH HYPOXIA Current Visit: Yes Status: Acute (4) Alcohol withdrawal Code(s): F10.239 - ALCOHOL DEPENDENCE WITH WITHDRAWAL, UNSPECIFIED Current Visit: Yes Status: Acute (5) Altered mental status Code(s): R41.82 - ALTERED MENTAL STATUS, UNSPECIFIED Current Visit: Yes Status: Acute (6) Aspiration pneumonia Code(s): J69.0 - PNEUMONITIS DUE TO INHALATION OF FOOD AND VOMIT Current Visit : Yes Status: Acute (7) Hypertension, uncontrolled Code(s): I10 - ESSENTIAL (PRIMARY) HYPERTENSION Current Visit: Yes Status: Resolved - Plan Plan: Called for support at wifes request, secondary to compassionate extubation. Video call with patient daughter who was not able to be here in person. Successful extubation, however Mr Peralta became restless. reiterated that she wanted him to be kept comfortable while we watched how he responded to extubation, no aggressive measures and to remain a DNAR. Will revisit Goal of care as needed secondary to patient response to extubation. Added Ativan 2 mg IVP PRN restlessness Levsin Sl to mitigate secretions PRN Communicated with Dr Hernandez and Dr Urban. Will continue to provide emotional support for patient and family. [60] minutes spent on this encounter with >50% of the time in counseling and coordination of care. - ROS Non Response: due to mental status
[2019-08-26] MEDS ORDERED: Hyoscyamine Sulfate SL 0.125 mg Tablet PO PRN (08:54)
[2019-08-26] MEDS: Divalproex Sodium 125 mg Sprinkle Capsule PER TUBE SCH (09:22)
[2019-08-26] MEDS: Icosapent Ethyl 1 GM CAPSULE PO SCH (09:23)
[2019-08-26] MEDS: Isosorbide Mononitrate 20 MG TAB PER TUBE SCH (09:23)
[2019-08-26] MEDS: Polyethylene Glycol 3350 17 GM Packet PER TUBE SCH (09:23)
[2019-08-26] MEDS: Metoprolol Tartrate 50 MG TAB PER TUBE SCH (09:23)
[2019-08-26] MEDS: Thiamine 100 MG TAB PER TUBE SCH (09:24)
[2019-08-26] MEDS: Enoxaparin Sodium 40 MG/0.4 ML SYRINGE SC SCH (09:26)
[2019-08-26] MEDS: Pantoprazole 40 MG VIAL IVP SCH (09:26)
[2019-08-26] MEDS: Morphine 2 MG/ML SYRINGE SLOW IVP PRN ×4 (15:42→21:54)
--- NOTE | 2019-08-26 17:17 | PDOC.HOSPP ---
- Subjective Encounter Date: 08/26/19 Encounter Time: 17:00 Subjective: f/u for resp failure and encephalopathy extubated this am. Remains on 2L/min NC. Transferred to medical floor from CCU today. - Objective Vital Signs & Weight: Vital Signs (12 hours) Temp Pulse Resp BP BP Pulse Ox 08/26/19 14:15 97.4 F L 51 L 18 155/73 H 90 L 08/26/19 12:00 98.9 F 08/26/19 08:35 90 L 08/26/19 08:00 98.9 F 24 H 08/26/19 07:36 96 08/26/19 07:23 43 L 155/62 H 08/26/19 06:00 98.8 F 16 Weight Admit Weight 229 lb Weight 235 lb 7.259 oz Most Recent Monitor Data Heart Rate from ECG 63 NIBP 186/93 NIBP BP-Mean 124 Respiration from ECG 21 SpO2 89 I&O: 08/25/19 08/26/19 08/27/19 06:59 06:59 06:59 Intake Total 2269.6 2552 203 Output Total 3970 1640 365 Balance -1700.4 912 -162 Result Diagrams: 08/26/19 04:00 08/26/19 04:00 Additional Labs: Microbiology 08/14/19 18:00 Urine euceda catheter Urine Culture - Final NO GROWTH AT 36 HOURS Laboratory Tests 08/17/19 15:25 COVID-19 PCR Not Detected Radiology Reviewed by me: Yes (PCXR - persistent bilat infiltrates) Hospitalist ROS - Medication Medications: Active Medications Generic Name Dose Route Start Last Admin Trade Name Freq PRN Reason Stop Dose Admin Bisacodyl 10 mg 08/25/19 06:00 08/26/19 13:47 Dulcolax [place] Not Given Q8HR CHEL Fentanyl 50 mcg 08/22/19 07:45 08/25/19 09:02 Duragesic TD 50 mcg Q3D CHEL Administration Ampicillin Sodium/Sulbactam 100 mls @ 200 mls/hr 08/19/19 08:00 08/26/19 13: 46 Sodium 3 gm/ Sodium Chloride IVPB 08/26/19 23:59 Not Given 0200,0800,1400,2000 CHEL Lorazepam 2 mg 08/18/19 00:04 08/26/19 15:32 Ativan SLOW IVP 09/17/19 00:04 2 mg Q1H PRN Administration Breakthrough agitation Lorazepam 2 mg 08/26/19 08:39 08/26/19 13:13 Ativan SLOW IVP 2 mg Q4H PRN Administration Anxiety/Agitation Morphine Sulfate 2 mg 08/18/19 00:04 08/22/19 21:40 Morphine SLOW IVP 09/17/19 00:04 2 mg Q1H PRN Administration BREAKTHROUGH PAIN/Agitation Morphine Sulfate 2 mg 08/26/19 09:35 08/26/19 15:42 Morphine SLOW IVP 2 mg Q30MIN PRN Administration SOB or Anxiety Scopolamine 1.5 mg 08/22/19 07:45 08/25/19 07:47 Transderm Scop TD 1.5 mg Q3D CHEL Administration - Exam General - other findings: sleeping Eye: PERRL ENT: normocephalic atraumatic, no oropharyngeal lesions Neck: supple, symmetric, no JVD, no thyromegaly Heart: RRR, no gallops, no rubs, normal peripheral pulses Respiratory: tachypneic Respiratory - other findings: diminished bilat Gastrointestinal: soft, non-tender, non-distended, normal bowel sounds, no palpable masses Gastrointestinal - other findings: obese Extremities: no cyanosis, no clubbing, no edema Skin: normal turgor Musculoskeletal: generalized weakness Psychiatric: somnolent, lethargic Hosp A/P (1) Acute respiratory failure with hypoxia Code(s): J96.01 - ACUTE RESPIRATORY FAILURE WITH HYPOXIA Status: Acute Plan: Extubated today, continue O2 via NC for comfort (2) Acute metabolic encephalopathy Code(s): G93.41 - METABOLIC ENCEPHALOPATHY Status: Acute Plan: Persistent, supportive mgmt, family at bedside (3) Alcohol withdrawal Code(s): F10.239 - ALCOHOL DEPENDENCE WITH WITHDRAWAL, UNSPECIFIED Status: Chronic (4) Aspiration pneumonia Code(s): J69.0 - PNEUMONITIS DUE TO INHALATION OF FOOD AND VOMIT Status: Acute Plan: Persistent infiltrates on CXR, continue Unasyn - Plan plan discussed w/ family, continue antibiotics, delinquency prevention social worker Consults: Palliative Care Extubated per family request Comfort care measures Continue Unasyn IV Palliative care assistance appreciated Miralax/Dulcolax supp
[2019-08-26 20:22] VITALS: TEMP 99
[2019-08-26 21:48] VITALS: BP 155/75
[2019-08-27] MEDS: Morphine 2 MG/ML SYRINGE SLOW IVP PRN ×2 (00:08→05:31)
[2019-08-27] MEDS: Lorazepam 2 MG/ML VIAL SLOW IVP PRN (01:57)
[2019-08-27] MEDS: Bisacodyl 10 MG SUPP PR SCH (05:36)
--- NOTE | 2019-08-28 00:41 | DIS ---
DATE OF ADMISSION: 08/14/2019 DATE OF DISCHARGE: 08/27/2019 FINAL DIAGNOSES: 1. Acute hypoxic respiratory failure. 2. Acute metabolic encephalopathy, multifactorial. 3. Chronic alcoholism. 4. Hypertension. 5. Coronary artery disease. CONSULTATIONS: 1. Dr. Duggan with Pulmonology Critical Care Service. 2. Dr. Rodriguez and Dr. Velasco with Neurology Service. 3. Palliative Care Service. PERTINENT LABORATORY AND X-RAY FINDINGS: Potassium ranged between 3.2 to 3.8, creatinine ranged between 0.94 to 1.37. LFTs within normal limits. Cortisol level 16.4. CBC showed a white blood cell count ranging between 5.6 to 16.4, hemoglobin ranged between 11.8 to 16.0. COVID-19 PCR not detected, 08/17/2019. Urine culture dated 08/14/2019, showed no growth at 36 hours. Portable chest x-ray dated 08/15/2019, showed large left layering effusion. CT of the brain without contrast dated 08/16/2019, showed no acute intracranial process. Small right mastoid effusion. MRI of the brain dated 08/18/2019, showed no acute intracranial process. Diffuse mucosal thickening in the left maxillary sinus and ethmoid air cells. EEG dated 08/21/2019, consistent with moderate to severe generalized nonspecific cerebral dysfunction. No seizure activity noted. HOSPITAL COURSE: The patient initially presented with respiratory failure requiring mechanical ventilation in the context of alcohol abuse and acute delirium. The patient was initially placed on a Cardene infusion and admitted to the CCU. CT and MRI imaging of the brain showed no acute intracranial process. The patient was treated with IV Ativan, as well as a Precedex infusion. The patient became extremely agitated, combative, requiring deeper sedation and mechanical ventilation. The patient was monitored and evaluated by the Critical Care Service, receiving aggressive pulmonary supportive management in addition to IV fluids. The patient also received nutritional support with tube feeds, but was unable to wean off mechanical ventilation due to severe agitation and combativeness. The patient was evaluated by the Neurology Service, undergoing EEG evaluation showing no epileptiform activity. The patient had global cerebral dysfunction consistent with metabolic encephalopathy. Due to the patient's prolonged stay in the critical care unit and inability to wean off mechanical ventilation, discussions were had with the family regarding goals of care and ongoing aggressive intervention. The family decided to pursue comfort measures and terminal extubation. The patient was subsequently extubated and transferred to the Critical Care Unit receiving comfort care with family at the bedside. The patient continued to clinically decline and on 08/27/2019 at 5:50 a.m. Family and decedent affairs were notified. Job ID: [id number]
== END 2019-08-27 05:50 | disposition expired | DRG 207 ==
LOC: CCU 15:01 → T4-A 08-26 15:29
PROVIDERS: ADMIT Family Medicine; ATTEND Internal Medicine
PROC: 5A1945Z Respiratory Ventilation, 24-96 Consecutive Hours (ICD-10-PCS; 2019-08-14)
PROC: 5A1955Z Respiratory Ventilation, Greater than 96 Consecutive Hours (ICD-10-PCS; principal; 2019-08-17)
PROC: 0BH18EZ Insertion of Endotracheal Airway into Trachea, Via Natural or Artificial Opening Endoscopic (ICD-10-PCS; 2019-08-17)
PROC: 0BJ08ZZ Inspection of Tracheobronchial Tree, Via Natural or Artificial Opening Endoscopic (ICD-10-PCS; 2019-08-17)
PROC: 05H533Z Insertion of Infusion Device into Right Subclavian Vein, Percutaneous Approach (ICD-10-PCS; 2019-08-17)
DX: J96.01 Acute respiratory failure with hypoxia (principal); G93.41 Metabolic encephalopathy; J69.0 Pneumonitis due to inhalation of food and vomit; F10.231 Alcohol dependence with withdrawal delirium; I16.1 Hypertensive emergency; G45.9 Transient cerebral ischemic attack, unspecified; Z66 Do not resuscitate; Z51.5 Encounter for palliative care; Z20.828 Contact with and (suspected) exposure to other viral communicable diseases; I10 Essential (primary) hypertension; I25.10 Atherosclerotic heart disease of native coronary artery without angina pectoris; E78.5 Hyperlipidemia, unspecified; K21.9 Gastro-esophageal reflux disease without esophagitis; M10.9 Gout, unspecified; I65.21 Occlusion and stenosis of right carotid artery; J44.9 Chronic obstructive pulmonary disease, unspecified; D69.6 Thrombocytopenia, unspecified; I48.0 Paroxysmal atrial fibrillation; E87.70 Fluid overload, unspecified; Z88.6 Allergy status to analgesic agent; Z78.1 Physical restraint status; Z95.5 Presence of coronary angioplasty implant and graft; Z87.891 Personal history of nicotine dependence; Z88.2 Allergy status to sulfonamides; Z79.899 Other long term (current) drug therapy; Z79.82 Long term (current) use of aspirin
CPT/HCPCS: 36415; 36416; 70450; 70553; 71045; 80053; 82140; 82533; 82805; 83735; 84100; 85025; 87086; 87635; 93005; 93010; 94002; 94003; C9113; J0282; J0295; J0360; J1650; J1940; J2060; J2270; J2704; J3411; J3475; J3480; J3486; J3490; J7042; J7070; U0003